=== PATIENT | male | born 1950 | race Caucasian/White ===

== ENCOUNTER 2020-03-21 10:04 | Inpatient (IN) | payer MEDICARE, MEDICAID ==
[2020-03-21] MEDS ORDERED: Cefepime 2 GM VIAL ONE (10:44)
[2020-03-21] MEDS ORDERED: Acetaminophen 500 MG TAB ONE (10:44)
[2020-03-21] MEDS ORDERED: Vancomycin 1 GM/200 ML BAG ONE (10:44)
[2020-03-21 10:57] LABS: Hemoglobin 9.3 g/dL (14.0-18.0); Mean Corpuscular Hemoglobin 29.6 pg (27.0-31.0); Mean Corpuscular Volume 89.8 fL (78.0-98.0); Platelet Count 459 thou/uL (130-400); RBC Distribution Width 14.8 % (11.5-14.5); Red Blood Cell (RBC) Count 3.14 mill/uL (4.70-6.10); White Blood Cell (WBC) Count 22.8 thou/uL (4.8-10.8)
--- NOTE | 2020-03-21 10:57 | RAD ---
Radiograph right leg tibia-fibula 2 views: 03/21/2020 HISTORY: 69-year-old male with leukocytosis and right lower extremity wound. "evaluate osteomyelitis" FINDINGS: No fracture, periostitis, fracture or permeative lesion is identified involving the tibia or fibula. Partial visualization of amputation with subcutaneous gas in the stump at mid foot. IMPRESSION: No destructive osseous lesion involving tibia or fibula.
[2020-03-21] MEDS ORDERED: diphenhydrAMINE 50 MG/ML VIAL ONE (11:00)
[2020-03-21] MEDS ORDERED: Ondansetron PF 4 MG/2 ML Vial ONE (11:00)
[2020-03-21] MEDS ORDERED: PROPOFOL 200 MG/20 ML VIAL ONE (11:00)
[2020-03-21] MEDS ORDERED: PHENYLEPHRINE-NS 100 MCG/ML 10 ML SYRINGE ONE (11:00)
[2020-03-21 11:04] LABS: INR-International Normal Ratio 2.1; PTT 58.3 sec (22.9-36.1); Prothrombin Time 23.9 sec (12.0-14.7)
--- NOTE | 2020-03-21 11:05 | RAD ---
Radiograph right foot 3 views: 03/21/2020 HISTORY: 63-year-old male with right foot pain and leukocytosis. COMPARISON: 11/10/2013 FINDINGS: Again noted is the amputation at the bases of all of the metatarsals. There is a new finding of a sig nificant amount of subcutaneous gas at the amputation stump. No definite periostitis is identified. It is difficult to evaluate for permeative lesion because of the overlapping soft tissue gas, but no definite bone destruction is identified. IMPRESSION: Subcutaneous emphysema at the right foot amputation stump: Evidence for bacterial infection with gas- forming organism: Gangrene
[2020-03-21] MEDS ORDERED: Clindamycin/D5W 900 mg/50 ml Premix Bag ONE (11:25)
[2020-03-21 11:36] LABS: ALT (SGPT) 26 U/L (8-55); AST (SGOT) 19 U/L (5-34); Alkaline Phosphatase 113 U/L (40-110); Anion Gap 19 mmol/L (10-20); BUN (Urea Nitrogen) 85 mg/dL (8.4-25.7); Bilirubin, Total 0.5 mg/dL (0.2-1.2); Calc. Creatinine Clearance 0 mL/min (70-130); Calcium 7.4 mg/dL (7.8-10.44); Carbon Dioxide 15 mmol/L (23-31); Chloride 97 mmol/L (98-107); Estimated GFR-MDRD 13; Globulin 4.1 g/dL (2.4-3.5); Glucose 265 mg/dL (80-115); Potassium 4.1 mmol/L (3.5-5.1); Protein, Total 7.1 g/dL (5.8-8.1); Sodium 127 mmol/L (136-145)
[2020-03-21 11:37] LABS: Band 7 % (5-11); Lymphocytes 3 % (21-51); Monocytes 6 % (0-10); Neutrophil 84 % (42-75); Platelet Morphology Comment Appears Increased; Polychromasia SLIGHT = 2-3 cells (100X) (0-2/hpf)
[2020-03-21 11:38] LABS: MDiff Complete? YES
[2020-03-21] MEDS ORDERED: metroNIDAZOLE 500 MG/100 ML BAG ONE (11:59)
[2020-03-21] MEDS ORDERED: Senokot S 8.6-50 MG TAB PO PRN (12:30)
[2020-03-21] MEDS ORDERED: Ondansetron PF 4 MG/2 ML Vial IVP PRN (12:30)
[2020-03-21] MEDS ORDERED: Dextrose 50% Abboject 50 ML SYRINGE SLOW IVP PRN (12:33)
[2020-03-21] MEDS ORDERED: Dextrose 5% in Water 1,000 ML IV PRN (12:33)
[2020-03-21] MEDS ORDERED: Piperacillin/Tazobactam 4.5 GM in Sodium Chloride 0.9% 100 ML IVPB SCH (14:00)
[2020-03-21] MEDS ORDERED: Vancomycin 1 GM in Premix Bag 1 BAG IVPB SCH (14:15)
[2020-03-21] MEDS ORDERED: Bacitracin Zinc Ointment 30 gm TUBE ONE (14:59)
[2020-03-21] MEDS ORDERED: Fentanyl 100 MCG/2 ML VIAL ONE (15:14)
[2020-03-21 15:28] LABS: SARS-CoV-2 NAA Rapid Test Not Detected (NotDetected)
--- NOTE | 2020-03-21 16:32 | CON ---
DATE OF CONSULTATION: 03/21/2020 REASON FOR CONSULTATION: Wet gangrene of the right foot. HISTORY OF PRESENT ILLNESS: Mr. Moore is a 69-year-old man with a history of diabetic neuropathy. He underwent a transmetatarsal amputation of the right foot many years ago and has seen a spinner fixer regularly for this. He last saw her about 3 weeks ago and was told that everything looked fine at that time. Two weeks ago, he started having pain in his right foot and he went to his local emergency room. He was diagnosed with a DVT and started on Eliquis. He states that Wound Care last came by last Wednesday and put a dressing on it. His daughter came by on Wednesday to see him and was concerned about his foot and made an appointment for him to see his primary care doctor, but the patient refused to take off his dressing at that time. He went to see his police shift commander today and again there was a foul odor and his police shift commander told him he needed to go to the emergency room, where he was found to have wet gangrene of the right foot with gas in the tissues on plain film of the foot and purulent drainage from boggy necrotic tissues over the plantar surface and distal portion of the TMA. His daughter states that it smelled bad on Wednesday when she took him to his primary care appointment, but that he would not let them look at the wound at that time. He has not had any fevers, but he has had chills and has been very cold. He states that the redness and swelling have only been present for a few days. PAST MEDICAL HISTORY: Diabetes with neuropathy and nephropathy. He is on insulin. He takes 14 units of the long-acting insulin daily and then sliding scale insulin, usually only a couple units at a time. He also has coronary artery disease with 3 stents, history of pancreatitis, benign prostatic hypertrophy, anemia, hyperparathyroidism secondary to chronic renal disease, and chronic kidney disease with recent worsening of renal function. His police shift commander has told him that he will probably need to go on dialysis in about 6 months. PAST SURGICAL HISTORY: Hernia repairs x2, tonsillectomy, a marcellus in his left leg and an ankle fusion of his left ankle, right transmetatarsal amputation, and 3 coronary artery stents. SOCIAL HISTORY: He smoked for about 30 years, but quit several years ago. He does not drink or use illicit drugs. He lives by himself and is still ambulatory. His daughter is with him and states that he is usually very private and does not involve his family in his medical care, but recently, he has been reaching out for more help and has started the process to make her his power of trademark attorney. ALLERGIES: HE HAS AN ALLERGY TO BACTRIM. MEDICATIONS: He does not know all of his medications. He takes; 1. Eliquis. 2. Long-acting insulin as well as sliding scale regular. 3. Several kidney medications. REVIEW OF SYSTEMS: Ten system review of systems is negative except per HPI. PHYSICAL EXAMINATION: VITAL SIGNS: The patient was afebrile in the emergency room. Heart rate of 84. Blood pressure initially 102/51, which came up to 122/57 with IV fluids. 99% saturated on room air. GENERAL: Reveals a thin elderly man, in no acute distress. He is not flushed or toxic in appearance. He is not diaphoretic. He is not jaundiced or icteric. HEENT: Unremarkable. Pupils are equal and extraocular movements are symmetric. Speech is clear. NECK: Supple without lymphadenopathy or thyroid nodules. HEART: Regular in its rate and rhythm without murmurs, rubs, or gallops. LUNGS: Clear to auscultation bilaterally, although breath sounds are distant. ABDOMEN: Soft and nondistended. He is tender to palpation in the suprapubic area, but states that it is because his bladder is full. No palpable masses or hernias. EXTREMITIES: Warm and well perfused. He has normal popliteal pulses bilaterally. No significant edema on either foot. His right transmetatarsal amputation site is frankly necrotic involving the entire flap back to the level of the proximal plantar foot. He has erythema up to the level of the ankle as well as some discoloration and blistering away from the necrotic portion of the flap. There is crepitance in the soft tissues as well as foul-smelling purulent drainage and full-thickness necrosis of most of the plantar surface of the foot. He does not have any pain to palpation beyond the erythematous area. NEUROLOGIC: No focal deficits. PSYCHIATRIC: Alert, oriented, and appropriate with linear thought processes. LABORATORY DATA: White count is elevated at 22,000 with 84% neutrophils, hematocrit is 28.2, platelets are 459. INR is elevated at 2.1 and PTT is elevated at 58.3. Sodium is low at 127, bicarb is low at 15, BUN and creatinine are elevated at 85 and 4.65. Lactate is normal at 1.4. C-reactive protein is elevated at 15.26. LFTs are normal except for an elevated alkaline phosphatase of 113. He is COVID negative. Images of the right foot and calf show gas in the soft tissues of the right foot, consistent with a gas-forming infection. No acute abnormalities of the calf. ASSESSMENT: Wet gangrene of the right foot. I explained to the patient that he needs to undergo urgent amputation of the right foot to control the infection. Given his active infection and irreversible anticoagulation, I recommend a guillotine amputation with a staged closure after his Eliquis has had time to reverse and after he has been on antibiotics for a few days; we can cover him with Lovenox in the meantime and hold his blood thinners for about 24 hours at the time of his amputation, resuming on the next day. The patient was initially quite reluctant to undergo amputation since he has gone through a lot to try to save this foot, but I explained to him that at this point, the foot cannot be salvaged and if we do not do an amputation in a timely manner, he risks having the infection spread further up the leg requiring amputation at a higher level. I do think he will heal a below-knee amputation. He has a good popliteal pulse and he is fairly functional at baseline, so he should be able to ambulate with a prosthesis. After speaking with his spinner fixer in [place], he has decided to proceed with surgery, ands is being taken to the operating room to undergo a guillotine amputation. We will plan on a formal closed below-knee amputation on Wednesday. Job ID: [id number] MTDD
[2020-03-21] MEDS ORDERED: Ondansetron HCl/PF 4 MG/2 ML Vial IVP PRN (16:38)
--- NOTE | 2020-03-21 17:13 | PDOC.OP ---
Operative Note - Operative Note Operative Note: PROCEDURE: Guillotine amputation of right foot SURGEON: Sveta Beltre M.D. DATE: 03/21/2020 PREOPERATIVE DIAGNOSIS: Wet gangrene of the right foot POSTOPERATIVE DIAGNOSIS: Wet gangrene of the right foot HISTORY: Patient with right transmetatarsal amputation many years ago who developed redness swelling discoloration of the right foot sometime over the past week or 2. He is fully anticoagulated on Eliquis for a DVT. He is septic with marginal blood pressure and a white count of 22,000. Recommendation was made to proceed with guillotine amputation for control of infection today, with plans to return to the OR on Wednesday for formal closed BKA after few days of antibiotics and allowing his Eliquis to wear off. He will need to be covered with Lovenox perioperatively for his DVT. FINDINGS: No evidence of infection at the level of the ankle. Good blood flow. PROCEDURE IN DETAIL: After informed consent was obtained and appropriate preoperative antibiotics administered the patient was taken to the operating room he was placed in supine position and general anesthesia was administered. He was prepped and draped in standard sterile fashion and the right foot amputated at the level of the ankle transversely using a Gigli saw. 2 pulsatile vessels were secured and suture ligated and several small muscular and skin vessels were controlled with electrocautery. There is no evidence of necrosis or purulence at the level of the ankle. Wet-to-dry dressings were placed and secured with Kerlix and Donovan wraps. The necrotic portion of the foot was opened on the back table and deep tissue cultures were sent. Patient was extubated and taken to recovery in good condition. Estimated blood loss was minimal. There were no complications. Specimen is right foot, and swabs for Gram stain and culture..
[2020-03-21] MEDS: Heparin 5,000 UNITS/ML VIAL SC SCH ×2 (18:57→21:57)
[2020-03-21] MEDS: Acetaminophen 325 MG TAB PO PRN (19:00)
[2020-03-21] MEDS: HumaLOG 300 UNITS/3 ML VIAL SC PRN ×2 (19:01→21:57)
[2020-03-21] MEDS: Sodium Chloride 0.9% 1,000 ML IV SCH (19:01)
[2020-03-21] MEDS ORDERED: Vancomycin HCl 1.75 GM in Sodium Chloride 0.9% 500 ML IVPB SCH (21:00)
[2020-03-21] MEDS: Piperacillin/Tazobactam 2.25 GM in Sodium Chloride 0.9% 100 ML IVPB SCH (21:57)
--- NOTE | 2020-03-21 23:00 | PDOC.HHP ---
Hospitalist HPI - History of Present Illness Right foot pain History of Present Illness: Mr. Moore is a 69-year-old male with a past medical history of CKD, type 2 diabetes on insulin, diabetic nephropathy, coronary artery disease x3 stents, BPH, anemia, hyperparathyroidism who was sent in from dialysis center for concerns of a right foot infection. Patient had a transmetatarsal amputation of his right foot a few months ago. Patient reports that about 2 weeks ago he started to develop worsening pain in his right foot and went to the emergency room where he was diagnosed with a DVT and started on Eliquis. He has been having wound care nurse come by weekly for dressing changes. Patient's daughter was concerned about infection and brought him to primary care appointment, but reports that patient would not let them undress the wound. Patient was at electric utility lineworker appointment today who sent him in for concerns of wet gangrene. Patient has no other complaints at this time and denies chest pain, shortness of breath, fever night sweats chills. He denies any new numbness or paresthesias. In the emergency room initial vital signs 123/52, 92, 20, 97% on room air. EKG showed normal sinus rhythm with PAC, but no ischemic ST changes. WBC 22.8. H/H 9.3/28.2. Sodium 127, BUN/CR 85/4.65. Glucose 265. SARS-CoV-2 negative. X- ray of the foot showed subcutaneous emphysema and evidence for bacterial infection with gas-forming organisms and gangrene. ER staff contacted general surgeon Dr. Beltre who evaluated patient and took patient to the OR for urgent guillotine amputation. Hospitalist ROS - Review of Systems Constitutional: denies: fever, chills, sweats, weakness, malaise, other Eyes: denies: pain, vision change, conjunctivae inflammation, eyelid inflammation, redness, other ENT: denies: ear pain, ear discharge, nose pain, nose discharge, nose congestion, mouth pain, mouth swelling, throat pain, throat swelling, other Respiratory: denies: cough, dry, shortness of breath, hemoptysis, SOB with excertion, pleuritic pain, sputum, wheezing, other Cardiovascular: denies: chest pain, palpitations, orthopnea, paroxysmal noc. dyspnea, edema, light headedness, other Genitourinary: denies: dysuria, frequency, incontinence, hematuria, retention, other Musculoskeletal: denies: neck pain, shoulder pain, arm pain, back pain, hand pain, leg pain, foot pain, other Skin: reports: lesions (Wound to right foot) Neurological: reports: numbness (Diabetic nephropathy stable). denies: weakness, incoordination, change in speech, confusion, seizures, other - Medication Medications: Home medications include Eliquis Baclofen Tamsulosin Rifaximin Insulin Aspirin Patient unable to confirm medications, taken from medical record. Will confirm home meds and dosages. Patient reports allergy to Bactrim Hospitalist History - Past Medical History Other Medical History: Past medical history of Type 2 diabetes Coronary artery disease status post 3 stents Pancreatitis BPH Anemia CKD with plans to start dialysis in 6 months Hyperparathyroidism Anemia of chronic disease - Past Surgical History Other Surgical History: Past surgical history includes Cardiac stents x3 Hernia repair x2 Tonsillectomy Transmetatarsal amputation of the right foot - Exam General Appearance: NAD, awake alert Eye: PERRL, anicteric sclera ENT: normocephalic atraumatic, no oropharyngeal lesions, moist mucosa Neck: supple, symmetric, no JVD, no thyromegaly, no lymphadenopathy, no carotid bruit Heart: RRR, no murmur, no gallops, no rubs, normal peripheral pulses Respiratory: CTAB, no wheezes, no rales, no ronchi, normal chest expansion, no tachypnea, normal percussion Gastrointestinal: soft, non-tender, non-distended, normal bowel sounds, no palpable masses, no hepatomegaly, no splenomegaly, no bruit Extremities - other findings: R leg with dressing C/D/I Skin: normal turgor, no lesions, no rashes Neurological: cranial nerve grossly intact, normal sensation to touch, no weakness, no focal deficits, no new deficit Musculoskeletal: normal tone, normal strength, no muscle wasting Psychiatric: normal affect, normal behavior, A&O x 3 Hospitalist Results - Labs Result Diagrams: 03/21/20 10:38 03/21/20 10:38 Lab results: WBC 22.8 thou/uL (4.8-10.8) H 03/21/20 10:38 Hgb 9.3 g/dL (14.0-18.0) L 03/21/20 10:38 Hct 28.2 % (42.0-52.0) L 03/21/20 10:38 MCV 89.8 fL (78.0-98.0) 03/21/20 10:38 Plt Count 459 thou/uL (130-400) H 03/21/20 10:38 Band Neuts % (Manual) 7 % (5-11) 03/21/20 10:38 ESR Westergren 102 mm/hr (Less than 20) H 03/21/20 10:00 Sodium 127 mmol/L (136-145) L 03/21/20 10:38 Potassium 4.1 mmol/L (3.5-5.1) 03/21/20 10:38 Chloride 97 mmol/L (98-107) L 03/21/20 10:38 Carbon Dioxide 15 mmol/L (23-31) L 03/21/20 10:38 BUN 85 mg/dL (8.4-25.7) H 03/21/20 10:38 Creatinine 4.65 mg/dL (0.7-1.3) H 03/21/20 10:38 Glucose 265 mg/dL (80-115) H 03/21/20 10:38 Lactic Acid 1.4 mmol/L (0.5-2.2) 03/21/20 10:38 Calcium 7.4 mg/dL (7.8-10.44) L 03/21/20 10:38 Total Bilirubin 0.5 mg/dL (0.2-1.2) 03/21/20 10:38 AST 19 U/L (5-34) 03/21/20 10:38 ALT 26 U/L (8-55) 03/21/20 10:38 Alkaline Phosphatase 113 U/L (40-110) H 03/21/20 10:38 C-Reactive Protein 15.26 mg/dL (= or < 0.5) H 03/21/20 10:38 Serum Total Protein 7.1 g/dL (5.8-8.1) 03/21/20 10:38 Albumin 3.0 g/dL (3.4-4.8) L 03/21/20 10:38 Hospitalist H&P A/P - Plan Plan: Wet gangrene 69M with hx of T2DM, s/p R foot transmetatarsal amp, CKD stage V, who presents for R foot gangrene. Plain film showed subcutaneous emphysema with gas. Patient taken urgently to surgery with Dr. Beltre for a guillotine amputation of the R foot. Patient WBC elevated to 22.8. Afebrile with stable VS. Will continue on IV abx, zosyn and vancomycin. Plans for a closed R BKA on Wednesday. Plan -s/p urgent R guillotine amputation -IV zosyn, vancomycin -Blood cultures -Trend fever curve, WBCs -Surgery following DVT Patient with recent R DVT on Eliquis. Will hold eliquis and bridge with heparin due to CKD for closed R BKA on Wednesday. Plan -Hold Eliquis -Heparin bridge CKD Stage V Patient with severe CKD BUN/Cr 85/4.65. Plans to start dialysis in approximately 6 months. Will consult nephrology for further management. Plan -Nephrology consult -Trend kidney function -Renal dosing as appropriate Type 2 Diabetes Mellitus Patient insulin dependent. Given severety of diabetic ulcer and infection will closely control blood sugars. Plan -ISS, ACHS glucose checks -Hg A1c -CC diet BPH Continue Tamsuosin CAD S/p 3 stents. Will continue ASA. DVT prophylaxis: Heparin FULL CODE Case discussed with attending physician, Dr. Mendieta who is in agreement with assessment and plan.
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
[2020-03-22] MEDS: Piperacillin/Tazobactam 2.25 GM in Sodium Chloride 0.9% 100 ML IVPB SCH ×4 (01:56→20:47)
[2020-03-22 02:43] VITALS: BMI 19.1
[2020-03-22] MEDS: Sodium Chloride 0.9% 1,000 ML IV SCH ×2 (05:18→05:52)
[2020-03-22 05:58] LABS: #Eosinphils 0.2 thou/uL (0.0-0.7); #Lymphocytes 1.5 thou/uL (1.20-3.40); #Monocytes 0.9 thou/uL (0.11-0.59); #Neutrophils 10.6 thou/uL (1.40-6.50); %Eosinophils 1.2 % (0.0-10.0); %Lymphocytes 11.1 % (21.0-51.0); %Monocytes 6.9 % (0.0-10.0); %Neutrophils 80.8 % (42.0-75.0); Hemoglobin 8.4 g/dL (14.0-18.0); Mean Corpuscular HGB CONC 32.3 g/dL (32.0-36.0); Mean Corpuscular Hemoglobin 29.5 pg (27.0-31.0); Mean Corpuscular Volume 91.5 fL (78.0-98.0); Mean Platelet Volume 8.2 fL (7.4-10.4); Platelet Count 442 thou/uL (130-400); RBC Distribution Width 14.8 % (11.5-14.5); Red Blood Cell (RBC) Count 2.86 mill/uL (4.70-6.10); White Blood Cell (WBC) Count 13.2 thou/uL (4.8-10.8)
[2020-03-22] MEDS: Heparin 25,000 units/D5W 500 ML IVPB SCH (05:58)
[2020-03-22 06:18] LABS: Anion Gap 17 mmol/L (10-20); BUN (Urea Nitrogen) 79 mg/dL (8.4-25.7); Calc. Creatinine Clearance 14 mL/min (70-130); Calcium 6.7 mg/dL (7.8-10.44); Carbon Dioxide 16 mmol/L (23-31); Chloride 103 mmol/L (98-107); Estimated GFR-MDRD 14; Glucose 322 mg/dL (80-115); Potassium 3.5 mmol/L (3.5-5.1); Sodium 132 mmol/L (136-145)
[2020-03-22] MEDS: HumaLOG 300 UNITS/3 ML VIAL SC PRN ×3 (06:23→20:47)
[2020-03-22] MEDS: Calcitriol 0.25 MCG CAP PO SCH (08:33)
[2020-03-22] MEDS: Calcium Acetate 667 MG CAP PO SCH ×3 (08:33→17:35)
[2020-03-22] MEDS: Saccharomyces boulardii 250 MG CAP PO SCH (08:34)
[2020-03-22] MEDS ORDERED: EPOETIN ALFA-EPBX (ESRD) 4,000 UNIT/ML VIAL SC SCH (09:00)
--- NOTE | 2020-03-22 09:11 | PDOC.HOSPP ---
- Subjective Encounter Date: 03/22/20 Encounter Time: 09:10 Subjective: Patient denies any complaints. Currently eating breakfast and tolerating it well. No n/v. Denies any chest pain/sob. No abdominal pain. Pain associated with foot amputation is well controlled. Remained afebrile overnight and denies any chills or sweats. - Objective Vital Signs & Weight: Vital Signs (12 hours) Temp Pulse Resp BP Pulse Ox 03/22/20 07:34 97.3 F L 85 18 125/75 20 L 03/22/20 01:58 97.2 F L 76 16 109/59 L 98 03/21/20 23:54 97.4 F L 79 18 138/68 100 Weight Weight 133 lb I&O: 03/21/20 03/22/20 03/23/20 06:59 06:59 06:59 Intake Total 2400 Balance 2400 Result Diagrams: 03/22/20 05:33 03/22/20 05:33 Additional Labs: Accuchecks 03/22/20 03/21/20 03/21/20 05:19 20:42 17:56 POC Glucose 333 H 212 H 188 H Hospitalist ROS - Review of Systems Constitutional: denies: fever, chills, sweats, weakness, malaise, other Respiratory: denies: cough, dry, shortness of breath, hemoptysis, SOB with excertion, pleuritic pain, sputum, wheezing, other Cardiovascular: denies: chest pain, palpitations, orthopnea, paroxysmal noc. dyspnea, edema, light headedness, other Gastrointestinal: denies: nausea, vomiting, abdominal pain, diarrhea, constipation, melena, hematochezia, other Genitourinary: denies: dysuria, frequency, incontinence, hematuria, retention, other Musculoskeletal: denies: neck pain, shoulder pain, arm pain, back pain, hand pain, leg pain, foot pain, other - Medication Medications: Active Medications Generic Name Dose Route Start Last Admin Trade Name Freq PRN Reason Stop Dose Admin Acetaminophen 650 mg 03/21/20 12:30 03/21/20 19:00 Acetaminophen 325 Mg Tab PO 650 mg Q8H PRN Administration Headache/Fever/Mild Pain (1-3) Calcitriol 0.25 mcg 03/22/20 09:00 03/22/20 08:33 Calcitriol 0.25 Mcg Cap PO 0.25 mcg DAILY GADIEL Administration Calcium Acetate 1,334 mg 03/22/20 08:00 03/22/20 08:33 Calcium Acetate 667 Mg Cap PO 1,334 mg TID-WM GADIEL Administration Piperacillin Sod/Tazobactam 100 mls @ 200 mls/hr 03/21/20 20:00 03/22/20 08:34 Sod 2.25 gm/ Sodium Chloride IVPB 100 mls 0200,0800,1400,2000 GADIEL Administration Sodium Chloride 1,000 mls @ 100 mls/hr 03/21/20 18:45 03/22/20 05:52 Normal Saline 0.9% IV 1,000 mls .Q10H GADIEL Administration Heparin Sodium/Dextrose 500 mls @ 0 mls/hr 03/21/20 23:45 03/22/20 05:58 Heparin 25,000 Units/D5w IVPB 500 mls INF GADIEL Administration Protocol Per Protocol Insulin Human Lispro 0 units 03/21/20 12:33 03/22/20 06:23 Humalog 300 Units/3 Ml Vial SC 5 unit .MILD SLIDING SCALE PRN Administration Mild Correctional Scale Saccharomyces Boulardii 250 mg 03/22/20 09:00 03/22/20 08:34 Saccharomyces Boulardii 250 Mg Cap PO 250 mg DAILY GADIEL Administration - Exam General Appearance: NAD, awake alert Eye: PERRL, anicteric sclera ENT: normocephalic atraumatic Neck: supple, no lymphadenopathy Heart: RRR, no murmur, no gallops, normal peripheral pulses Respiratory: CTAB, no wheezes, no rales, no ronchi, normal chest expansion Gastrointestinal: soft, non-tender, non-distended, normal bowel sounds Extremities: no edema Skin: no lesions, no rashes Neurological: cranial nerve grossly intact Musculoskeletal: normal tone, no muscle wasting Musculoskeletal - other findings: s/p right foot amputation, dressing in pace. Psychiatric: normal affect, normal behavior, A&O x 3 Hosp A/P (1) Diabetic wet gangrene of the foot Code(s): E11.52 - TYPE 2 DIABETES W DIABETIC PERIPHERAL ANGIOPATHY W GANGRENE Status: Acute Plan: S/p urgent R guillotine amputation by Dr. Beltre. Currently on IV zosyn, vancomycin Blood cultures pending. Remained afebrile overnight. Plan for R BKA on Wednesday. (2) Chronic renal failure Status: Acute Plan: Seen by Dr. Rodrigues and started IV fluids due to concern for possible LEANDRO. Possibility he may be heading towards dialysis. Continue to monitor renal function and BMP. Further management as per nephrology team. (3) Electrolyte abnormality Code(s): E87.8 - OTH DISORDERS OF ELECTROLYTE AND FLUID BALANCE, NEC Status: Acute Plan: Elevated phosphorus and low calcium. Started on PhosLo by Dr. Rodrigues. Continue to monitor electrolytes. (4) Secondary hyperparathyroidism Code(s): N25.81 - SECONDARY HYPERPARATHYROIDISM OF RENAL ORIGIN Status: Acute Plan: Started on Calcitriol 0.[address] Rodrigues. 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 (6) BPH (benign prostatic hyperplasia) Code(s): N40.0 - BENIGN PROSTATIC HYPERPLASIA WITHOUT LOWER URINRY TRACT SYMP Status: Chronic Plan: Continue tamsulosin. (7) History of DVT (deep vein thrombosis) Code(s): Z86.718 - PERSONAL HISTORY OF OTHER VENOUS THROMBOSIS AND EMBOLISM Status: Acute Plan: Chronic anticoagulation with Eliquis. Currently on hold. Patient has been started on heparin. (8) CAD (coronary artery disease) Code(s): I25.10 - ATHSCL HEART DISEASE OF [place] CORONARY ARTERY W/O ANG PCTRS Status: Acute Plan: Continue Aspirin. (9) Anemia Code(s): D64.9 - ANEMIA, UNSPECIFIED Status: Chronic Plan: Likely associated with underlying CKD. Will check iron studies. Monitor H/H. - Plan DVT proph w/heparin FULL CODE STATUS Discussed with attending who agrees with plan as above.
--- NOTE | 2020-03-22 09:59 | PRG ---
DATE OF SERVICE: 03/22/2020 SUBJECTIVE: Mr. Moore is a 69-year-old white male with chronic renal failure from diabetic nephropathy, type 2 diabetes mellitus, and admitted for right foot infection. He underwent right foot amputation. This morning, he is feeling better. We are following up this patient for his chronic renal failure. There is some stabilization of the renal dysfunction. No other complaints today. No chest pain or shortness of breath. OBJECTIVE: VITAL SIGNS: Blood pressure 125/75, heart rate 85, respiratory rate 18, temperature 97.3, O2 saturation is 98%. GENERAL: The patient is awake, alert, comfortable, not in distress. SKIN: Adequate turgor. HEENT: Slightly pale conjunctivae. Anicteric sclerae. NECK: No neck mass. No carotid bruits. No JVD. CHEST: No deformities. LUNGS: Clear breath sounds. HEART: Normal sinus rhythm. No murmur. No gallops. No rubs. ABDOMEN: Globular, soft, nontender. No masses. EXTREMITIES: No edema. Right foot dressing noted. MEDICATIONS: Of March 22, 2020, were reviewed. LABORATORY DATA: Laboratories of March 22, 2020: White count 13.2, hemoglobin 8.4. Sodium 132, potassium 3.5, chloride 103, carbon dioxide 16, BUN 79, creatinine 4.32, glucose 322, calcium is 6.7. ASSESSMENT AND PLAN: 1. Chronic renal failure from diabetic nephropathy. Stabilizing renal function. Continue current management. Continue normal saline. No indication for any dialytic intervention. 2. Anemia - the patient to be started on Epogen at 7500 units subcu every week. 3. Metabolic acidosis. Consider starting on sodium bicarbonate 650 mg p.o. t.i.d. 4. Hyperphosphatemia/hypocalcemia. On PhosLo 667 mg two tablets t.i.d. with meals. 5. Right foot wet gangrene - status post right foot amputation, stable. On empiric IV antibiotics. Recheck CBC and basic metabolics in a.m. Job ID: [id number]
[2020-03-22] MEDS: Sodium Bicarbonate Tab 325 MG TAB PO SCH ×3 (13:31→20:47)
[2020-03-22 16:31] LABS: Vancomycin, Random 9.9 ug/mL (See Comment)
[2020-03-22] MEDS ORDERED: Vancomycin 1 GM in Premix Bag 1 BAG IVPB SCH (17:00)
--- NOTE | 2020-03-22 17:07 | PDOC.GSPN ---
Surgery Progress Note: Subj - Subjective Narrative: Patient seen with wound care team this afternoon. There was some s erosanguineous drainage on his dressing and some old marrow oozing but no active bleeding from the soft tissues. Wound was redressed. White count has come down almost to normal and hematocrit is about the same. Creatinine is slightly improved. He is on a heparin drip and last PTT was 81. Assessment/plan: Wet gangrene of the right foot status post guillotine amputation. Sepsis is improved on IV antibiotics status post amputation. Continue IV antibiotics. He has a DVT and is on a heparin drip for bridging. Eliquis is being held. He is scheduled for a formal right below-knee amputation with closure of the stump on Wednesday at 8 AM and his heparin will need to be held perioperatively. He will be able to resume this postoperatively. His renal function is stable and Dr. Rodrigues does not feel that he will require hemodialysis in the near future. He will be seen by the wound care team tomorrow. If there are any concerns they are going to contact Dr. Taylor. Otherwise I will see him on Wednesday at the time of his operation. Postoperatively he will need to go to inpatient rehab. He is motivated patient and was previously self-sufficient so I suspect that he will do well with therapy and be able to ambulate with a prosthesis. Surgery Progress Note: Obj - Vital signs Vital signs: Vital Signs - Most Recent Temp Pulse Resp BP Pulse Ox 97.3 F L 85 18 125/75 99 03/22/20 07:34 03/22/20 07:34 03/22/20 07:34 03/22/20 07:34 03/22/20 08:00 Surgery Progress Note: Results - Labs Result Diagrams: 03/26/20 05:19 03/26/20 05:19 Lab results: Laboratory Results - last 12 hr 03/22/20 03/22/20 03/22/20 05:19 05:33 05:33 WBC 13.2 H RBC 2.86 L Hgb 8.4 L Hct 26.2 L MCV 91.5 MCH 29.5 MCHC 32.3 RDW 14.8 H Plt Count 442 H MPV 8.2 Neutrophils % 80.8 H Lymphocytes % 11.1 L Monocytes % 6.9 Eosinophils % 1.2 Basophils % 0.0 Neutrophils # 10.6 H Lymphocytes # 1.5 Monocytes # 0.9 H Eosinophils # 0.2 Basophils # 0.0 APTT Sodium 132 L Potassium 3.5 Chloride 103 Carbon Dioxide 16 L Anion Gap 17 BUN 79 H Creatinine 4.32 H Estimated GFR (MDRD) 14 Glucose 322 H POC Glucose 333 H Calcium 6.7 L Random Vancomycin 03/22/20 03/22/20 03/22/20 10:51 15:40 15:53 WBC RBC Hgb Hct MCV MCH MCHC RDW Plt Count MPV Neutrophils % Lymphocytes % Monocytes % Eosinophils % Basophils % Neutrophils # Lymphocytes # Monocytes # Eosinophils # Basophils # APTT Sodium Potassium Chloride Carbon Dioxide Anion Gap BUN Creatinine Estimated GFR (MDRD) Glucose POC Glucose 261 H 377 H Calcium Random Vancomycin 9.9 03/22/20 15:53 WBC RBC Hgb Hct MCV MCH MCHC RDW Plt Count MPV Neutrophils % Lymphocytes % Monocytes % Eosinophils % Basophils % Neutrophils # Lymphocytes # Monocytes # Eosinophils # Basophils # APTT 81.4 H Sodium Potassium Chloride Carbon Dioxide Anion Gap BUN Creatinine Estimated GFR (MDRD) Glucose POC Glucose Calcium Random Vancomycin
[2020-03-23] MEDS: Acetaminophen 325 MG TAB PO PRN (00:35)
[2020-03-23] MEDS ORDERED: HYDROcodone/Acetaminophen 5/325 mg Tablet PO PRN (01:19)
[2020-03-23] MEDS: Piperacillin/Tazobactam 2.25 GM in Sodium Chloride 0.9% 100 ML IVPB SCH ×4 (01:34→21:34)
[2020-03-23] MEDS: HYDROcodone/Acetaminophen 5/325 mg Tablet PO PRN ×2 (01:35→10:34)
[2020-03-23] MEDS: Sodium Chloride 0.9% 1,000 ML IV SCH ×3 (02:10→21:57)
[2020-03-23 05:16] LABS: #Eosinphils 0.3 thou/uL (0.0-0.7); #Monocytes 0.9 thou/uL (0.11-0.59); #Neutrophils 9.9 thou/uL (1.40-6.50); %Basophils 0.4 % (0.0-1.0); %Eosinophils 2.1 % (0.0-10.0); %Lymphocytes 15.6 % (21.0-51.0); %Monocytes 6.6 % (0.0-10.0); %Neutrophils 75.4 % (42.0-75.0); Hemoglobin 8.6 g/dL (14.0-18.0); Mean Corpuscular HGB CONC 32.2 g/dL (32.0-36.0); Mean Corpuscular Hemoglobin 29.8 pg (27.0-31.0); Mean Corpuscular Volume 92.4 fL (78.0-98.0); Platelet Count 507 thou/uL (130-400); RBC Distribution Width 15.2 % (11.5-14.5); Red Blood Cell (RBC) Count 2.89 mill/uL (4.70-6.10); White Blood Cell (WBC) Count 13.1 thou/uL (4.8-10.8)
[2020-03-23] MEDS: HumaLOG 300 UNITS/3 ML VIAL SC PRN ×4 (05:24→21:42)
[2020-03-23] MEDS: Heparin 25,000 units/D5W 500 ML IVPB SCH (05:24)
[2020-03-23 05:33] LABS: Anion Gap 16 mmol/L (10-20); BUN (Urea Nitrogen) 68 mg/dL (8.4-25.7); Calc. Creatinine Clearance 14 mL/min (70-130); Calcium 6.7 mg/dL (7.8-10.44); Carbon Dioxide 15 mmol/L (23-31); Chloride 108 mmol/L (98-107); Estimated GFR-MDRD 13; Glucose 180 mg/dL (80-115); Iron 27 ug/dL (65-175); Iron 32 ug/dL (65-175); Iron Binding Capacity, Total 110 mcg/dL (261-462); Iron Binding Capacity, Total 111 mcg/dL (261-462); Potassium 4.2 mmol/L (3.5-5.1); Sodium 135 mmol/L (136-145)
[2020-03-23 06:23] LABS: Ferritin 199.41 ng/mL (22-322)
[2020-03-23] MEDS ORDERED: Heparin 10,000 UNITS/ 10 ML VIAL SLOW IVP SCH (06:45)
[2020-03-23] MEDS: Calcium Acetate 667 MG CAP PO SCH ×3 (08:38→17:30)
[2020-03-23] MEDS: Calcitriol 0.25 MCG CAP PO SCH (08:38)
[2020-03-23] MEDS: Sodium Bicarbonate Tab 325 MG TAB PO SCH ×3 (08:38→21:48)
[2020-03-23] MEDS: Saccharomyces boulardii 250 MG CAP PO SCH (08:38)
--- NOTE | 2020-03-23 10:27 | PRG ---
DATE OF SERVICE: 03/23/2020 SUBJECTIVE: Mr. Moore is a 69-year-old white male with chronic renal failure from diabetic nephropathy admitted for right foot gangrene. He underwent a right foot amputation. No new complaints today. No chest pain or shortness of breath. He does feel weak and tired. No complaints of chest pain or shortness of breath. OBJECTIVE: VITAL SIGNS: Blood pressure 122/63, heart rate 79, respiratory rate 16, temperature 97.2, and O2 saturation 99%. GENERAL: The patient is awake, alert, supine, comfortable, lethargic, not in overt distress. SKIN: Adequate turgor. HEENT: He has a slightly pale conjunctivae. Anicteric sclerae. NECK: No neck mass. No carotid bruits. No JVD. CHEST: No deformities. LUNGS: Clear breath sounds. HEART: Normal sinus rhythm. No murmur. No gallops. No rubs. ABDOMEN: Globular, soft, and nontender. No masses. EXTREMITIES: No edema. Positive for right foot amputation. NEUROLOGIC: Awake and oriented to 3 spheres. Moving all extremities. No tremors. No asterixis. No ataxia. MEDICATIONS: Medications of March 23, 2020, was reviewed. LABORATORY DATA: Laboratories of March 23, 2020, white count 13.1 and hemoglobin 8.6. Sodium 135, potassium 4.2, chloride 108, carbon dioxide 15, BUN 68, creatinine 4.46, GFR 13 mL/minute, and glucose is 180. Iron 32. Ferritin 199. Vitamin B12 of 841. ASSESSMENT AND PLAN: 1. Chronic renal failure from diabetic nephropathy - creatinine has worsen from 4.32 to 4.46. GFR has dropped down from 14 to 13 mL/minute. Continue IV hydration. If no significant improvement with his renal function, my bias is to consider initiating hemodialysis with this patient. 2. Anemia. Hemoglobin noted at 8.6 - currently, the patient is started on Epogen. I did note that the patient's iron levels are on the low side. My plan is to initiate iron infusion with this patient. Venofer at 50 mg IV now. 3. Metabolic acidosis - continuing sodium bicarbonate. 4. Right foot wet gangrene - status post right foot amputation. Continue supportive care. Job ID: [id number]
[2020-03-23 12:48] LABS: PTT 162.3 sec (22.9-36.1)
[2020-03-23 16:24] LABS: Vancomycin, Random 16.1 ug/mL (See Comment)
--- NOTE | 2020-03-23 17:45 | PDOC.HOSPP ---
- Subjective Encounter Date: 03/23/20 Encounter Time: 09:30 Subjective: Patient seen and examined for diabetic foot infection requiring amputation. Denies any fever or chills. Pain around 7/10 over the surgical site. Denies any constipation, nausea or vomiting. - Objective Vital Signs & Weight: Vital Signs (12 hours) Temp Pulse Resp BP Pulse Ox 03/23/20 16:04 97.5 F L 76 16 125/66 98 03/23/20 12:34 97.4 F L 71 16 127/74 98 03/23/20 07:11 97.2 F L 79 16 122/63 99 Weight Weight 133 lb I&O: 03/22/20 03/23/20 03/24/20 06:59 06:59 06:59 Intake Total 2400 1760.4 Balance 2400 1760.4 Result Diagrams: 03/23/20 05:01 03/23/20 05:01 Additional Labs: Accuchecks 03/23/20 03/23/20 03/23/20 16:09 12:35 04:58 POC Glucose 201 H 234 H 166 H 03/22/20 20:33 POC Glucose 248 H Abnormal Lab Results - Last 48 hrs 03/22/20 05:33: Sodium 132 L, Carbon Dioxide 16 L, BUN 79 H, Creatinine 4.32 H, Calcium 6.7 L 03/22/20 05:33: WBC 13.2 H, RBC 2.86 L, Hgb 8.4 L, Hct 26.2 L, RDW 14.8 H, Plt Count 442 H, Neutrophils % 80.8 H, Lymphocytes % 11.1 L, Neutrophils # 10.6 H, Monocytes # 0.9 H 03/22/20 15:53: APTT 81.4 H 03/23/20 01:24: APTT 92.7 H 03/23/20 05:01: Sodium 135 L, Chloride 108 H, Carbon Dioxide 15 L, BUN 68 H, Creatinine 4.46 H, Calcium 6.7 L, Iron 32 L, TIBC 111 L 03/23/20 05:01: WBC 13.1 H, RBC 2.89 L, Hgb 8.6 L, Hct 26.7 L, RDW 15.2 H, Plt Count 507 H, Neutrophils % 75.4 H, Lymphocytes % 15.6 L, Neutrophils # 9.9 H, Monocytes # 0.9 H 03/23/20 05:01: Hemoglobin A1c 7.0 H 03/23/20 05:01: Iron 27 L, TIBC 110 L 03/23/20 05:01: APTT 60.7 H 03/23/20 12:17: APTT 162.3 H* 03/23/20 14:46: APTT 49.1 H Microbiology - Entire Visit 03/21/20 10:34 Venous blood - Right Arm Blood Culture - Preliminary NO GROWTH AT 48 HOURS 03/21/20 10:38 Venous blood - Left Arm Blood Culture - Preliminary NO GROWTH AT 48 HOURS 03/21/20 10:21 Foot - Pending Bacterial Culture - Preliminary Morganella morganii ssp leoncio Presumptive Escherichia coli 03/21/20 16:24 Foot - Swab Bacterial Culture - Preliminary Gram Negative David Staphylococcus aureus 03/21/20 16:24 Foot - Swab Anaerobic Culture - Pending 03/22/20 00:00 Stool C. difficile GDH Antigen & Toxins - Final Hospitalist ROS - Review of Systems Cardiovascular: denies: chest pain, palpitations, orthopnea, paroxysmal noc. dyspnea, edema, light headedness, other Gastrointestinal: denies: nausea, vomiting, abdominal pain, diarrhea, constipation, melena, hematochezia, other - Medication Medications: Active Medications Generic Name Dose Route Start Last Admin Trade Name Dylonq PRN Reason Stop Dose Admin Acetaminophen 650 mg 03/21/20 12:30 03/23/20 00:35 Acetaminophen 325 Mg Tab PO 650 mg Q8H PRN Administration Headache/Fever/Mild Pain (1-3) Hydrocodone Bitart/Acetaminophen 2 tab 03/23/20 01:19 03/23/20 10:34 Hydrocodone/Acetaminophen 5/325 Mg Tablet PO 2 tab Q4H PRN Administration Moderate to Severe Pain (6-10) Calcitriol 0.25 mcg 03/22/20 09:00 03/23/20 08:38 Calcitriol 0.25 Mcg Cap PO 0.25 mcg DAILY GADIEL Administration Calcium Acetate 1,334 mg 03/22/20 08:00 03/23/20 17:30 Calcium Acetate 667 Mg Cap PO 1,334 mg TID-WM GADIEL Administration Epoetin Lars-epbx 7,500 unit 03/22/20 09:00 03/22/20 14:02 Epoetin Lars-Epbx (Esrd) 4,000 Unit/Ml Vial SC 7,500 unit Q7D GADIEL Administration Heparin Sodium (Porcine) 0 units 03/23/20 06:45 03/23/20 06:42 Heparin 10,000 Units/ 10 Ml Vial SLOW IVP 2,412 unit ASDIR GADIEL Administration Piperacillin Sod/Tazobactam 100 mls @ 200 mls/hr 03/21/20 20:00 03/23/20 13:18 Sod 2.25 gm/ Sodium Chloride IVPB 100 mls 0200,0800,1400,2000 GADIEL Administration Sodium Chloride 1,000 mls @ 100 mls/hr 03/21/20 18:45 03/23/20 08:40 Normal Saline 0.9% IV 1,000 mls .Q10H GADIEL Administration Heparin Sodium/Dextrose 500 mls @ 0 mls/hr 03/21/20 23:45 03/23/20 05:24 Heparin 25,000 Units/D5w IVPB 500 mls INF GADIEL Administration Protocol Per Protocol Insulin Human Lispro 0 units 03/21/20 12:33 03/23/20 17:30 Humalog 300 Units/3 Ml Vial SC 3 unit .MILD SLIDING SCALE PRN Administration Mild Correctional Scale Saccharomyces Boulardii 250 mg 03/22/20 09:00 03/23/20 08:38 Saccharomyces Boulardii 250 Mg Cap PO 250 mg DAILY GADIEL Administration Sodium Bicarbonate 650 mg 03/22/20 09:00 03/23/20 15:25 Sodium Bicarbonate Tab 325 Mg Tab PO 650 mg TID GADIEL Administration - Exam General - other findings: Mild distress due to pain Heart: RRR, no gallops Respiratory: no wheezes, no rales Gastrointestinal: non-tender, non-distended Extremities: no cyanosis, no clubbing Extremities - other findings: Dressing over the wound Neurological: no new deficit Hosp A/P - Plan DVT proph w/heparin Sepsis due to diabetic right foot infection with gangrene s/p amputationPOA Diabetes mellitus type 2 with diabetic nephropathy CKD stage V Chronic metabolic acidosis due to renal failure Anemia probably due to renal insufficiency History of DVT on heparin drip Hyponatremia with sodium of 127 on admission Benign prostatic hypertrophy Coronary artery disease status post stent Secondary hyperparathyroidism Other issues per previous notes Plan: Formal right below-knee amputation with closure of the stump tomorrow. Discontinue heparin drip prior to surgery. Continue IV fluids per Dr. Rodrigues. Continue IV vancomycin. Continue sodium bicarbonate. Continue Epogen for anemia. Continue PhosLo for secondary hyperparathyroidism
[2020-03-23] MEDS ORDERED: Vancomycin 1 GM in Premix Bag 1 BAG IVPB SCH (18:00)
[2020-03-24] MEDS: Piperacillin/Tazobactam 2.25 GM in Sodium Chloride 0.9% 100 ML IVPB SCH ×2 (01:40→11:46)
[2020-03-24] MEDS ORDERED: Vancomycin 1 GM in Premix Bag 1 BAG IVPB SCH (02:00)
[2020-03-24 04:02] LABS: #Basophils 0.1 thou/uL (0.0-0.2); #Eosinphils 0.3 thou/uL (0.0-0.7); #Monocytes 0.8 thou/uL (0.11-0.59); #Neutrophils 11.2 thou/uL (1.40-6.50); %Basophils 0.4 % (0.0-1.0); %Eosinophils 2.4 % (0.0-10.0); %Monocytes 5.6 % (0.0-10.0); %Neutrophils 77.6 % (42.0-75.0); Hemoglobin 9.2 g/dL (14.0-18.0); Mean Corpuscular HGB CONC 32.5 g/dL (32.0-36.0); Mean Corpuscular Hemoglobin 30.3 pg (27.0-31.0); Mean Platelet Volume 7.9 fL (7.4-10.4); Platelet Count 584 thou/uL (130-400); RBC Distribution Width 15.5 % (11.5-14.5); Red Blood Cell (RBC) Count 3.05 mill/uL (4.70-6.10); White Blood Cell (WBC) Count 14.5 thou/uL (4.8-10.8)
[2020-03-24 04:26] LABS: ALT (SGPT) 22 U/L (8-55); AST (SGOT) 30 U/L (5-34); Albumin 2.4 g/dL (3.4-4.8); Alkaline Phosphatase 97 U/L (40-110); Anion Gap 19 mmol/L (10-20); BUN (Urea Nitrogen) 53 mg/dL (8.4-25.7); Bilirubin, Total 0.2 mg/dL (0.2-1.2); Calc. Creatinine Clearance 15 mL/min (70-130); Carbon Dioxide 13 mmol/L (23-31); Chloride 108 mmol/L (98-107); Estimated GFR-MDRD 14; Globulin 4.4 g/dL (2.4-3.5); Glucose 162 mg/dL (80-115); Potassium 4.5 mmol/L (3.5-5.1); Protein, Total 6.8 g/dL (5.8-8.1); Sodium 135 mmol/L (136-145)
[2020-03-24] MEDS ORDERED: Phenylephrine 10 MG/ML VIAL ONE (07:52)
[2020-03-24] MEDS ORDERED: Fentanyl 100 MCG/2 ML VIAL ONE ×2 (07:52→10:40)
[2020-03-24] MEDS ORDERED: Ondansetron HCl/PF 4 MG/2 ML Vial IVP PRN ×2 (08:10→08:55)
[2020-03-24] MEDS ORDERED: Promethazine HCl 25 MG/ML VIAL IM PRN ×2 (08:10→08:55)
[2020-03-24] MEDS ORDERED: Promethazine HCl 25 MG/ML VIAL SLOW IVP PRN ×2 (08:10→08:55)
[2020-03-24] MEDS ORDERED: Meperidine HCl/PF 25 MG/ML VIAL SLOW IVP PRN (08:10)
[2020-03-24] MEDS ORDERED: Lidocaine 1% PF 5 ML VIAL ONE (09:17)
[2020-03-24] MEDS ORDERED: EPHEDRINE 25 MG/5 ML SYRINGE ONE (09:17)
[2020-03-24] MEDS ORDERED: PROPOFOL 200 MG/20 ML VIAL ONE (09:17)
[2020-03-24] MEDS ORDERED: PHENYLEPHRINE-NS 100 MCG/ML 10 ML SYRINGE ONE (09:17)
[2020-03-24] MEDS ORDERED: Ondansetron PF 4 MG/2 ML Vial ONE (09:17)
[2020-03-24 11:18] LABS: Hemoglobin 9.1 g/dL (14.0-18.0)
[2020-03-24] MEDS: Calcium Acetate 667 MG CAP PO SCH ×3 (11:36→17:26)
[2020-03-24] MEDS: Sodium Bicarbonate Tab 325 MG TAB PO SCH ×3 (11:36→20:39)
[2020-03-24] MEDS: Sodium Bicarbonate 100 MEQ in Sodium Chloride 0.45% 1,000 ML IV SCH (11:44)
[2020-03-24] MEDS: Calcitriol 0.25 MCG CAP PO SCH (11:45)
[2020-03-24] MEDS: Saccharomyces boulardii 250 MG CAP PO SCH (11:45)
[2020-03-24] MEDS: HYDROcodone/Acetaminophen 5/325 mg Tablet PO PRN ×2 (11:46→17:26)
[2020-03-24] MEDS: HumaLOG 300 UNITS/3 ML VIAL SC PRN ×3 (11:58→21:34)
[2020-03-24] MEDS ORDERED: Meropenem 0.5 GM in Sodium Chloride 0.9% 100 ML IVPB SCH (12:00)
[2020-03-24] MEDS: Meropenem 500 MG in Sodium Chloride 0.9% 100 ML IVPB SCH ×2 (12:29→20:39)
[2020-03-24] MEDS ORDERED: Iron, Sodium Ferric Gluconate 125 MG in Sodium Chloride 0.9% 100 ML IVPB SCH (13:00)
--- NOTE | 2020-03-24 18:07 | PDOC.HOSPP ---
- Subjective Encounter Date: 03/24/20 Encounter Time: 11:30 Subjective: Patient seen and examined for diabetic foot infection. Underwent formal amputation today. Pain controlled. No fever or chills. - Objective Vital Signs & Weight: Vital Signs (12 hours) Temp Pulse Resp BP Pulse Ox 03/24/20 12:33 98.2 F 104 H 16 147/74 H 98 03/24/20 11:20 98 Weight Weight 133 lb I&O: 03/23/20 03/24/20 03/25/20 06:59 06:59 06:59 Intake Total 1760.4 1600 Balance 1760.4 1600 Result Diagrams: 03/24/20 11:06 03/24/20 03:34 Additional Labs: Accuchecks 03/24/20 03/24/20 03/24/20 16:07 07:40 05:05 POC Glucose 221 H 140 H 161 H 03/23/20 21:38 POC Glucose 160 H Abnormal Lab Results - Last 48 hrs 03/23/20 01:24: APTT 92.7 H 03/23/20 05:01: Sodium 135 L, Chloride 108 H, Carbon Dioxide 15 L, BUN 68 H, C reatinine 4.46 H, Calcium 6.7 L, Iron 32 L, TIBC 111 L 03/23/20 05:01: WBC 13.1 H, RBC 2.89 L, Hgb 8.6 L, Hct 26.7 L, RDW 15.2 H, Plt Count 507 H, Neutrophils % 75.4 H, Lymphocytes % 15.6 L, Neutrophils # 9.9 H, Monocytes # 0.9 H 03/23/20 05:01: Hemoglobin A1c 7.0 H 03/23/20 05:01: Iron 27 L, TIBC 110 L 03/23/20 05:01: APTT 60.7 H 03/23/20 12:17: APTT 162.3 H* 03/23/20 14:46: APTT 49.1 H 03/23/20 21:31: APTT 76.0 H 03/24/20 03:34: Sodium 135 L, Chloride 108 H, Carbon Dioxide 13 L, BUN 53 H, Creatinine 4.17 H, Calcium 7.0 L, Albumin 2.4 L, Globulin 4.4 H, Albumin/Globulin Ratio 0.5 L 03/24/20 03:34: WBC 14.5 H, RBC 3.05 L, Hgb 9.2 L, Hct 28.4 L, RDW 15.5 H, Plt Count 584 H, Neutrophils % 77.6 H, Lymphocytes % 14.0 L, Neutrophils # 11.2 H, Monocytes # 0.8 H 03/24/20 03:34: APTT 46.9 H 03/24/20 11:06: Hgb 9.1 L, Hct 28.1 L Microbiology - Entire Visit 03/21/20 10:21 Foot - Pending Bacterial Culture - Preliminary Morganella morganii ssp leoncio Presumptive Escherichia coli 03/21/20 16:24 Foot - Swab Bacterial Culture - Preliminary Morganella morganii ssp leoncio Staphylococcus aureus Gram Negative David#2 03/21/20 16:24 Foot - Swab Anaerobic Culture - Preliminary 03/21/20 10:34 Venous blood - Right Arm Blood Culture - Preliminary NO GROWTH AT 48 HOURS 03/21/20 10:38 Venous blood - Left Arm Blood Culture - Preliminary NO GROWTH AT 48 HOURS 03/22/20 00:00 Stool C. difficile GDH Antigen & Toxins - Final Hospitalist ROS - Review of Systems Respiratory: denies: cough, dry, shortness of breath, hemoptysis, SOB with excertion, pleuritic pain, sputum, wheezing, other Cardiovascular: denies: chest pain, palpitations, orthopnea, paroxysmal noc. dyspnea, edema, light headedness, other - Medication Medications: Active Medications Generic Name Dose Route Start Last Admin Trade Name Freq PRN Reason Stop Dose Admin Acetaminophen 650 mg 03/21/20 12:30 03/23/20 00:35 Acetaminophen 325 Mg Tab PO 650 mg Q8H PRN Administration Headache/Fever/Mild Pain (1-3) Hydrocodone Bitart/Acetaminophen 2 tab 03/23/20 01:19 03/24/20 17:26 Hydrocodone/Acetaminophen 5/325 Mg Tablet PO 2 tab Q4H PRN Administration Moderate to Severe Pain (6-10) Calcitriol 0.25 mcg 03/22/20 09:00 03/24/20 11:45 Calcitriol 0.25 Mcg Cap PO 0.25 mcg DAILY GADIEL Administration Calcium Acetate 1,334 mg 03/22/20 08:00 03/24/20 17:26 Calcium Acetate 667 Mg Cap PO 1,334 mg TID-WM GADIEL Administration Epoetin Lars-epbx 7,500 unit 03/22/20 09:00 03/22/20 14:02 Epoetin Lars-Epbx (Esrd) 4,000 Unit/Ml Vial SC 7,500 unit Q7D GADIEL Administration Sodium Bicarbonate 100 meq/ 1,100 mls @ 100 mls/hr 03/24/20 06:15 03/24/20 11:44 Sodium Chloride IV 1,100 mls .Q11H GADIEL Administration Meropenem 500 mg/ Sodium 100 mls @ 200 mls/hr 03/24/20 12:00 03/24/20 12:29 Chloride IVPB 100 mls Q8H GADIEL Administration Insulin Human Lispro 0 units 03/21/20 12:33 03/24/20 17:26 Humalog 300 Units/3 Ml Vial SC 3 unit .MILD SLIDING SCALE PRN Administration Mild Correctional Scale Ondansetron HCl 4 mg 03/21/20 12:30 03/23/20 19:23 Ondansetron Pf 4 Mg/2 Ml Vial IVP 4 mg Q6H PRN Administration Nausea/Vomiting Saccharomyces Boulardii 250 mg 03/22/20 09:00 03/24/20 11:45 Saccharomyces Boulardii 250 Mg Cap PO 250 mg DAILY GADIEL Administration Sodium Bicarbonate 650 mg 03/22/20 09:00 03/24/20 15:36 Sodium Bicarbonate Tab 325 Mg Tab PO 650 mg TID GADIEL Administration - Exam General Appearance: ill appearing Neck: supple Heart: RRR, no gallops Respiratory: no wheezes, no ronchi Gastrointestinal: soft, non-tender, normal bowel sounds Extremities: no cyanosis, no clubbing Extremities - other findings: Dressing over the surgical site Hosp A/P - Plan DVT proph w/SCDs Sepsis due to diabetic right foot infection with gangrene s/p amputation Diabetes mellitus type 2 with diabetic nephropathy CKD stage V Chronic metabolic acidosis due to renal failure Anemia probably due to renal insufficiency History of DVT on heparin drip Hyponatremia with sodium of 127 on admission Benign prostatic hypertrophy Coronary artery disease status post stent Secondary hyperparathyroidism Other issues per previous notes Plan: Bacterial culture positive for Morganella and staph aureus. Will change antibiotics to Carbapenem. Will adjust dose for renal function. Will start anticoagulation 24 hours after surgery. IV fluid changed to bicarb drip due to significant metabolic acidosis this morning. Recheck labs in a.m. Pain control. Continue other medications as above.
[2020-03-25] MEDS: Sodium Bicarbonate 100 MEQ in Sodium Chloride 0.45% 1,000 ML IV SCH ×4 (00:26→22:11)
[2020-03-25] MEDS: HYDROcodone/Acetaminophen 5/325 mg Tablet PO PRN ×3 (00:27→16:39)
[2020-03-25] MEDS: Meropenem 500 MG in Sodium Chloride 0.9% 100 ML IVPB SCH ×3 (04:14→21:02)
[2020-03-25] MEDS: HumaLOG 300 UNITS/3 ML VIAL SC PRN ×4 (06:01→22:10)
[2020-03-25 06:02] LABS: #Eosinphils 0.3 thou/uL (0.0-0.7); #Lymphocytes 1.5 thou/uL (1.20-3.40); #Neutrophils 10.9 thou/uL (1.40-6.50); %Basophils 0.3 % (0.0-1.0); %Monocytes 7.5 % (0.0-10.0); %Neutrophils 79.2 % (42.0-75.0); Hemoglobin 7.9 g/dL (14.0-18.0); Mean Corpuscular Hemoglobin 30.7 pg (27.0-31.0); Mean Corpuscular Volume 92.8 fL (78.0-98.0); Mean Platelet Volume 7.4 fL (7.4-10.4); Platelet Count 502 thou/uL (130-400); RBC Distribution Width 15.9 % (11.5-14.5); Red Blood Cell (RBC) Count 2.57 mill/uL (4.70-6.10); White Blood Cell (WBC) Count 13.7 thou/uL (4.8-10.8)
[2020-03-25 06:06] LABS: INR-International Normal Ratio 1.3; PTT 52.3 sec (22.9-36.1); Prothrombin Time 16.6 sec (12.0-14.7)
[2020-03-25 06:16] LABS: Anion Gap 16 mmol/L (10-20); BUN (Urea Nitrogen) 48 mg/dL (8.4-25.7); Calc. Creatinine Clearance 15 mL/min (70-130); Calcium 6.8 mg/dL (7.8-10.44); Carbon Dioxide 20 mmol/L (23-31); Chloride 104 mmol/L (98-107); Estimated GFR-MDRD 15; Glucose 193 mg/dL (80-115); Potassium 3.7 mmol/L (3.5-5.1); Sodium 136 mmol/L (136-145)
[2020-03-25] MEDS: Saccharomyces boulardii 250 MG CAP PO SCH (08:29)
[2020-03-25] MEDS: Calcium Acetate 667 MG CAP PO SCH ×3 (08:29→16:37)
[2020-03-25] MEDS: Sodium Bicarbonate Tab 325 MG TAB PO SCH ×3 (08:29→21:02)
[2020-03-25] MEDS: Calcitriol 0.25 MCG CAP PO SCH (08:29)
--- NOTE | 2020-03-25 09:39 | PRG ---
DATE OF SERVICE: 03/25/2020 SUBJECTIVE: Mr. Moore is a 69-year-old white male, who has chronic renal failure from diabetic nephropathy and initially admitted for right foot gangrene. He underwent a right BKA. He is doing better. He denies any complaints. He denies any chest pain or shortness of breath. I rediscussed dialysis with him. He is still hesitant to proceed with it. OBJECTIVE: VITAL SIGNS: Blood pressure 138/74, heart rate 91, respiratory rate 18, temperature 97.4, and O2 saturation 97%. GENERAL: The patient is awake, sitting comfortable, not in overt distress. SKIN: Adequate turgor. HEENT: Pale conjunctivae. Anicteric sclerae. NECK: No neck mass. No carotid bruits. No JVD. CHEST: No deformities. LUNGS: Clear breath sounds. HEART: Normal sinus rhythm. No murmur. No gallops. No rubs. ABDOMEN: Globular, soft, nontender. No masses. EXTREMITIES: No edema. Status post right BKA. MEDICATIONS: Of March 25, 2020, reviewed. LABORATORY DATA: Of March 25, 2020; white count 13.7, hemoglobin 7.9. Sodium 136, potassium 3.7, chloride 104, carbon dioxide 20, BUN 48, creatinine 4.08, glucose 193, and calcium 6.8. ASSESSMENT AND PLAN: 1. Chronic renal failure from diabetic nephropathy. Creatinine noted at 4.08 with a GFR of 15 mL/minute. I have already made a recommendation for the patient to consider initiating dialysis. He is interested eventually on peritoneal dialysis. However, he does not want to initiate at the present time. 2. Hypocalcemia/hyperphosphatemia, currently on calcium acetate. 3. Anemia, continuing weekly Epogen. 4. Status post gangrene, right foot-the patient recently is status post right indjm-xrl-mdyk amputation. Awaiting rehab evaluation. Recheck CBC, basic met. Job ID: [id number]
--- NOTE | 2020-03-25 21:43 | PDOC.HOSPP ---
- Subjective Encounter Date: 03/25/20 Encounter Time: 09:45 Subjective: Patient seen and examined for diabetic foot infection requiring amputation. Pain controlled. Denies any fever or chills. - Objective Vital Signs & Weight: Vital Signs (12 hours) Temp Pulse Resp BP Pulse Ox 03/25/20 20:49 98 F 100 16 115/63 94 L 03/25/20 15:35 98.1 F 95 18 151/75 H 95 03/25/20 10:51 97.9 F 100 18 137/62 97 Weight Weight 133 lb I&O: 03/24/20 03/25/20 03/26/20 06:59 06:59 06:59 Intake Total 1600 5800 Output Total 2175 Balance 1600 3625 Result Diagrams: 03/25/20 05:27 03/25/20 05:27 Additional Labs: Accuchecks 03/25/20 03/25/20 03/25/20 20:54 15:38 10:56 POC Glucose 200 H 220 H 261 H 03/25/20 03/24/20 05:42 11:58 POC Glucose 182 H 205 H Hospitalist ROS - Review of Systems Respiratory: denies: cough, dry, shortness of breath, hemoptysis, SOB with excertion, pleuritic pain, sputum, wheezing, other Cardiovascular: denies: chest pain, palpitations, orthopnea, paroxysmal noc. dyspnea, edema, light headedness, other - Medication Medications: Active Medications Generic Name Dose Route Start Last Admin Trade Name Freq PRN Reason Stop Dose Admin Acetaminophen 650 mg 03/21/20 12:30 03/23/20 00:35 Acetaminophen 325 Mg Tab PO 650 mg Q8H PRN Administration Headache/Fever/Mild Pain (1-3) Hydrocodone Bitart/Acetaminophen 2 tab 03/23/20 01:19 03/25/20 16:39 Hydrocodone/Acetaminophen 5/325 Mg Tablet PO 2 tab Q4H PRN Administration Moderate to Severe Pain (6-10) Calcitriol 0.25 mcg 03/22/20 09:00 03/25/20 08:29 Calcitriol 0.25 Mcg Cap PO 0.25 mcg DAILY GADIEL Administration Calcium Acetate 1,334 mg 03/22/20 08:00 03/25/20 16:37 Calcium Acetate 667 Mg Cap PO 1,334 mg TID-WM GADIEL Administration Epoetin Lars-epbx 7,500 unit 03/22/20 09:00 03/22/20 14:02 Epoetin Lars-Epbx (Esrd) 4,000 Unit/Ml Vial SC 7,500 unit Q7D GADIEL Administration Sodium Bicarbonate 100 meq/ 1,100 mls @ 100 mls/hr 03/24/20 06:15 03/25/20 14:21 Sodium Chloride IV 1,100 mls .Q11H GADIEL Administration Meropenem 500 mg/ Sodium 100 mls @ 200 mls/hr 03/24/20 12:00 03/25/20 21:02 Chloride IVPB 100 mls Q8H GADIEL Administration Insulin Human Lispro 0 units 03/21/20 12:33 03/25/20 16:37 Humalog 300 Units/3 Ml Vial SC 3 unit .MILD SLIDING SCALE PRN Administration Mild Correctional Scale Ondansetron HCl 4 mg 03/21/20 12:30 03/23/20 19:23 Ondansetron Pf 4 Mg/2 Ml Vial IVP 4 mg Q6H PRN Administration Nausea/Vomiting Saccharomyces Boulardii 250 mg 03/22/20 09:00 03/25/20 08:29 Saccharomyces Boulardii 250 Mg Cap PO 250 mg DAILY GADIEL Administration Sodium Bicarbonate 650 mg 03/22/20 09:00 03/25/20 21:02 Sodium Bicarbonate Tab 325 Mg Tab PO 650 mg TID GADIEL Administration Sodium Chloride 10 ml 03/24/20 21:00 03/25/20 21:02 Flush - Normal Saline 10 Ml Syringe IVF 10 ml Q12HR GADIEL Administration - Exam General Appearance: NAD Neck: supple, no JVD Heart: RRR, no gallops Respiratory: no wheezes, no ronchi Gastrointestinal: soft, non-distended Extremities: no cyanosis, no clubbing Hosp A/P - Plan DVT proph w/SCDs Sepsis due to diabetic right foot infection with gangrene s/p amputation Diabetes mellitus type 2 with diabetic nephropathy CKD stage V Chronic metabolic acidosis due to renal failure Anemia probably due to renal insufficiency History of DVT on heparin drip Hyponatremia with sodium of 127 on admission Benign prostatic hypertrophy Coronary artery disease status post stent Secondary hyperparathyroidism Other issues per previous notes Plan: Monitor H&H. Continue IV meropenem. Change antibiotics to ciprofloxacin at discharge. Will reduce IV fluid to 50 mL/h. Recheck hemoglobin in a.m. Continue other medications. Continue sliding scale.
[2020-03-26] MEDS: Meropenem 500 MG in Sodium Chloride 0.9% 100 ML IVPB SCH ×3 (03:28→19:43)
[2020-03-26 05:35] LABS: #Basophils 0.1 thou/uL (0.0-0.2); #Eosinphils 0.3 thou/uL (0.0-0.7); #Lymphocytes 1.6 thou/uL (1.20-3.40); #Neutrophils 11.4 thou/uL (1.40-6.50); %Basophils 0.4 % (0.0-1.0); %Eosinophils 2.3 % (0.0-10.0); %Lymphocytes 10.8 % (21.0-51.0); %Neutrophils 79.5 % (42.0-75.0); Hemoglobin 7.8 g/dL (14.0-18.0); Mean Corpuscular HGB CONC 31.8 g/dL (32.0-36.0); Mean Corpuscular Hemoglobin 29.7 pg (27.0-31.0); Mean Corpuscular Volume 93.4 fL (78.0-98.0); Mean Platelet Volume 7.2 fL (7.4-10.4); Platelet Count 533 thou/uL (130-400); RBC Distribution Width 17.3 % (11.5-14.5); Red Blood Cell (RBC) Count 2.64 mill/uL (4.70-6.10); White Blood Cell (WBC) Count 14.3 thou/uL (4.8-10.8)
[2020-03-26] MEDS: HumaLOG 300 UNITS/3 ML VIAL SC PRN ×3 (05:42→18:10)
[2020-03-26] MEDS: HYDROcodone/Acetaminophen 5/325 mg Tablet PO PRN ×4 (05:48→20:56)
[2020-03-26 05:54] LABS: Anion Gap 13 mmol/L (10-20); BUN (Urea Nitrogen) 42 mg/dL (8.4-25.7); Calc. Creatinine Clearance 16 mL/min (70-130); Calcium 7.4 mg/dL (7.8-10.44); Carbon Dioxide 26 mmol/L (23-31); Chloride 101 mmol/L (98-107); Estimated GFR-MDRD 16; Glucose 189 mg/dL (80-115); Potassium 4.3 mmol/L (3.5-5.1); Sodium 136 mmol/L (136-145)
--- NOTE | 2020-03-26 06:36 | PRG ---
DATE OF SERVICE: 03/25/2020 SUBJECTIVE: Mr. Moore is postoperative day #1 from right below-knee amputation. This is performed following a guillotine amputation of his right foot by Dr. Beltre on March 21. Mr. Moore is resting comfortably in bed. He acknowledges appropriate discomfort and what I believe he is describing as phantom pain. He still has his knee immobilizer and compression dressing on his stump. He tells me he has been eating well. PHYSICAL EXAMINATION: VITAL SIGNS: He is afebrile. Pulse is between and 100, blood pressure is 150/70. GENERAL: Alert and interactive, without significant complaint. LUNGS: Clear to auscultation. EXTREMITIES: Dressings intact and not disturbed. LABORATORY DATA: His hemoglobin is 7.9 today, down from 9.1 yesterday morning. His white blood cell count 13.7. His electrolytes reveal a creatinine of 4.08, and this is stable for him. Glucose levels are running between 180 and 260. ASSESSMENT: He is stable following right leg below-knee amputation. He will need to initiate physical therapy in the near future. Dr. Beltre will resume care tomorrow. Dressing change would typically be performed second or third day after his amputation. Job ID: [id number]
[2020-03-26] MEDS: Calcium Acetate 667 MG CAP PO SCH ×3 (08:08→16:11)
[2020-03-26] MEDS: Calcitriol 0.25 MCG CAP PO SCH (08:08)
[2020-03-26] MEDS: Saccharomyces boulardii 250 MG CAP PO SCH (08:08)
[2020-03-26] MEDS: Sodium Bicarbonate Tab 325 MG TAB PO SCH ×3 (08:08→19:42)
--- NOTE | 2020-03-26 10:10 | PRG ---
DATE OF SERVICE: 03/26/2020 SERVICE: Renal Medicine. SUBJECTIVE: Mr. Moore is a 69-year-old white male who was initially admitted for right foot with gangrene. He underwent a right BKA for this. He was also seen by the Renal Service for his acute kidney injury on top of his chronic renal failure. He was empirically volume repleted. In addition, renal function is slowly improving. Voices no new complaints today. He is being evaluated for rehab placement. OBJECTIVE: VITAL SIGNS: Blood pressure is 136/74, heart rate 96, respiratory rate 16, temperature 97.7, and O2 saturation 96%. GENERAL: The patient is awake, alert, comfortable, not in overt distress. SKIN: Adequate turgor. HEENT: He has slightly pale conjunctivae. Anicteric sclerae. NECK: No neck mass. No carotid bruits. No JVD. CHEST: No deformities. LUNGS: Clear breath sounds. No wheezing. No crackles. HEART: Normal sinus rhythm. No murmur. No gallops or rubs. ABDOMEN: Globular, soft, nontender. No masses. EXTREMITIES: No edema. Status post right BKA. MEDICATIONS: Of March 26, 2020, were reviewed. LABORATORY DATA: Laboratories of March 26, 2020; white count 14.3, hemoglobin 7.8. Sodium 136, potassium 4.3, chloride 101, carbon dioxide 26, BUN 42, creatinine 3.79, GFR 16 mL/minute, calcium 7.4. ASSESSMENT AND PLAN: 1. Chronic renal failure/acute kidney injury - superimposed prerenal azotemia, much improved with volume repletion. GFR has now gone up to about 16 mL/minute from as low as 13 mL/minute. No indication for emergent hemodialysis. As previously mentioned, this patient will eventually need dialytic intervention. 2. Right foot gangrene - status post dwwgk-maj-[id number] amputation, doing well on IV antibiotics. Surgery is following. 3. Anemia. Continue weekly Epogen. Overall, agree with current management. Job ID: [id number]
[2020-03-26 12:01] VITALS: TEMP 98
--- NOTE | 2020-03-26 16:52 | PDOC.HOSPP ---
- Subjective Encounter Date: 03/26/20 Encounter Time: 11:00 Subjective: Patient was seen and examined for gangrene. Pain controlled. No chest pain or shortness of breath. No fevers or chills. - Objective Vital Signs & Weight: Vital Signs (12 hours) Temp Pulse Resp BP Pulse Ox 03/26/20 15:40 98.0 F 88 18 144/81 H 95 03/26/20 10:42 98.0 F 100 18 150/69 H 93 L 03/26/20 08:14 97.7 F 96 16 136/74 96 Weight Weight 133 lb I&O: 03/25/20 03/26/20 03/27/20 06:59 06:59 06:59 Intake Total 7510 Output Total 3525 Balance 3985 Result Diagrams: 03/26/20 05:19 03/26/20 05:19 Additional Labs: Accuchecks 03/26/20 03/26/20 03/25/20 10:46 05:27 20:54 POC Glucose 229 H 187 H 200 H Hospitalist ROS - Review of Systems Respiratory: denies: cough, dry, shortness of breath, hemoptysis, SOB with excertion, pleuritic pain, sputum, wheezing, other Cardiovascular: denies: chest pain, palpitations, orthopnea, paroxysmal noc. dyspnea, edema, light headedness, other - Medication Medications: Active Medications Generic Name Dose Route Start Last Admin Trade Name Freq PRN Reason Stop Dose Admin Acetaminophen 650 mg 03/21/20 12:30 03/23/20 00:35 Acetaminophen 325 Mg Tab PO 650 mg Q8H PRN Administration Headache/Fever/Mild Pain (1-3) Hydrocodone Bitart/Acetaminophen 2 tab 03/23/20 01:19 03/26/20 16:11 Hydrocodone/Acetaminophen 5/325 Mg Tablet PO 2 tab Q4H PRN Administration Moderate to Severe Pain (6-10) Calcitriol 0.25 mcg 03/22/20 09:00 03/26/20 08:08 Calcitriol 0.25 Mcg Cap PO 0.25 mcg DAILY GADIEL Administration Calcium Acetate 1,334 mg 03/22/20 08:00 03/26/20 16:11 Calcium Acetate 667 Mg Cap PO 1,334 mg TID-WM GADIEL Administration Epoetin Lars-epbx 7,500 unit 03/22/20 09:00 03/22/20 14:02 Epoetin Lars-Epbx (Esrd) 4,000 Unit/Ml Vial SC 7,500 unit Q7D GADIEL Administration Meropenem 500 mg/ Sodium 100 mls @ 200 mls/hr 03/24/20 12:00 03/26/20 11:40 Chloride IVPB 100 mls Q8H GADIEL Administration Sodium Bicarbonate 100 meq/ 1,100 mls @ 50 mls/hr 03/25/20 22:15 03/25/20 22:11 Sodium Chloride IV 1,100 mls .Q22H GADIEL Administration Insulin Human Lispro 0 units 03/21/20 12:33 03/26/20 11:40 Humalog 300 Units/3 Ml Vial SC 3 unit .MILD SLIDING SCALE PRN Administration Mild Correctional Scale Ondansetron HCl 4 mg 03/21/20 12:30 03/23/20 19:23 Ondansetron Pf 4 Mg/2 Ml Vial IVP 4 mg Q6H PRN Administration Nausea/Vomiting Saccharomyces Boulardii 250 mg 03/22/20 09:00 03/26/20 08:08 Saccharomyces Boulardii 250 Mg Cap PO 250 mg DAILY GADIEL Administration Sodium Bicarbonate 650 mg 03/22/20 09:00 03/26/20 16:11 Sodium Bicarbonate Tab 325 Mg Tab PO 650 mg TID GADIEL Administration Sodium Chloride 10 ml 03/24/20 21:00 03/26/20 08:08 Flush - Normal Saline 10 Ml Syringe IVF Not Given Q12HR GADIEL - Exam General Appearance: NAD Heart: RRR, no gallops Respiratory: no wheezes, no ronchi Gastrointestinal: soft, non-tender, normal bowel sounds Extremities: no cyanosis, no clubbing Hosp A/P - Plan Sepsis due to diabetic right foot infection with gangrene s/p amputation Diabetes mellitus type 2 with diabetic nephropathy CKD stage V Chronic metabolic acidosis due to renal failure Anemia probably due to renal insufficiency History of DVT - diagnosed in 03/05 Hyponatremia with sodium of 127 on admission Benign prostatic hypertrophy Coronary artery disease s/p stent Secondary hyperparathyroidism Other issues per previous notes Plan: Continue meropenemchange to ciprofloxacin at discharge. Discontinue IV fluid i n 24 hours if okay with nephrology. Await inpatient rehab placement. Continue sodium bicarbonate. Pain control. Continue sliding scale. A.m. labs ordered. Diagnostic tests: Right foot x-ray11/5subcutaneous emphysema at the right foot Right tibia fibula x-ray03/21negative for fractures or dislocation
--- NOTE | 2020-03-26 18:55 | PDOC.DS.DS ---
Provider - Provider Date of Admission: 03/21/20 17:08 Date of Discharge: 03/26/20 Admitting Provider: India Mendieta MD Consultations: General Surgery, Nephrology Primary Care Physician: Elissa Azul DO Course - Hospital Course Hospital Course: Patient is a 69-year-old male with diabetes mellitus type 2, status post right transmetatarsal amputation and CKD presented to the emergency room with right foot pain. His work-up was consistent with gas gangrene requiring emergent below-knee amputation with form 1 below-knee amputation on 03/24. He was initially placed on vancomycin and Zosyn that was transitioned to meropenem based on the antibiotic sensitivity. The antibiotics will be transitioned to ciprofloxacin. His CRP on admission was 15.26. Hemoglobin A1c was 7.0 Patient was seen by nephrology Dr. Rodrigues due to CKD. His creatinine maximum was 4.65. At discharge the creatinine was 3.79. He also had hyponatremia with sodium of 127 on admission that has improved to 136 at discharge. Patient has a history of DVT that was diagnosed 2 to 3 weeks ago. He takes Eliquis at home. He was placed on heparin drip which was held for surgery. He will be started on Lovenox based on renal function. Final diagnosis: Sepsis due to diabetic right foot infection with gangrene s/p amputation Diabetes mellitus type 2 with diabetic nephropathy CKD stage V Chronic metabolic acidosis due to renal failure Anemia probably due to renal insufficiency History of DVT - diagnosed in 03/05 Hyponatremia with sodium of 127 on admission Benign prostatic hypertrophy Coronary artery disease s/p stent Secondary hyperparathyroidism Time coordinating the discharge of this patient was 38 minutes. Resuscitation Status: 03/21/20 12:30 Resuscitation Status Routine Resuscitation Status: FULL: Full Resuscitation - Labs Lab Results: 03/26/20 05:19 03/26/20 05:19 Abnormal Lab Results - Last 48 hrs 03/25/20 05:27: PT 16.6 H, APTT 52.3 H 03/25/20 05:27: Carbon Dioxide 20 L, BUN 48 H, Creatinine 4.08 H, Calcium 6.8 L 03/25/20 05:27: WBC 13.7 H, RBC 2.57 L, Hgb 7.9 L, Hct 23.9 L, RDW 15.9 H, Plt Count 502 H, Neutrophils % 79.2 H, Lymphocytes % 11.0 L, Neutrophils # 10.9 H, Monocytes # 1.0 H 03/26/20 05:19: BUN 42 H, Creatinine 3.79 H, Calcium 7.4 L 03/26/20 05:19: WBC 14.3 H, RBC 2.64 L, Hgb 7.8 L, Hct 24.6 L, MCHC 31.8 L, RDW 17.3 H, Plt Count 533 H, MPV 7.2 L, Neutrophils % 79.5 H, Lymphocytes % 10.8 L, Neutrophils # 11.4 H, Monocytes # 1.0 H Microbiology - Entire Visit 03/21/20 10:34 Venous blood - Right Arm Blood Culture - Final NO GROWTH IN 5 DAYS 03/21/20 10:38 Venous blood - Left Arm Blood Culture - Final NO GROWTH IN 5 DAYS 03/21/20 16:24 Foot - Swab Bacterial Culture - Final Morganella morganii ssp leoncio Staphylococcus aureus Gram Negative David#2 03/21/20 16:24 Foot - Swab Anaerobic Culture - Final Anaerobic Gram Negative David Anaerobic Gram Negative David#2 Anaerobic Gram Positive Cocci Anaerobic Gram Negative David#3 Anaerobic Gram Negative David#5 Anaerobic Gram Negative David#6 03/21/20 10:21 Foot - Pending Bacterial Culture - Final Morganella morganii ssp leoncio Escherichia coli 03/22/20 00:00 Stool C. difficile GDH Antigen & Toxins - Final - Diagnostic Interpretation Other Additional comments: Right foot x-rayubcutaneous emphysema at the right foot Right tibia fibula x-ray03/21negative for fractures or dislocation - Physical Exam Vitals: Vital Signs (12 hours) Temp Pulse Resp BP Pulse Ox 03/26/20 15:40 98.0 F 88 18 144/81 H 95 03/26/20 10:42 98.0 F 100 18 150/69 H 93 L 03/26/20 08:14 97.7 F 96 16 136/74 96 Weight Weight 133 lb Physical Exam: The patient was seen and examined on the day of discharge. Plan - Discharge Medications Prescriptions: Enoxaparin Sodium [Lovenox] 30 mg SC Q12HR #30 syringe Ciprofloxacin HCl 250 mg PO BID #20 tablet NPH, Human Insulin Isophane [HumuLIN N] 5 unit SC BID #1 vial Home Medications: Medication Instructions Recorded Confirmed Type Insulin Lispro [HumaLOG KwikPen] 0 unit SC AC PRN 11/10/13 11/01/16 History Aspirin [Aspir-Low] 81 mg PO DAILY 10/21/16 11/01/16 History Sodium Bicarbonate 650 mg PO TID 10/21/16 11/01/16 History Ciprofloxacin HCl 250 mg PO BID #20 tablet 03/26/20 Rx Enoxaparin Sodium [Lovenox] 30 mg SC Q12HR #30 syringe 03/26/20 Rx HYDROcodone Bit/APAP 5/325 [[place]] 1 tab PO Q4H PRN tab 03/26/20 Rx NPH, Human Insulin Isophane 5 unit SC BID #1 vial 03/26/20 Rx [HumuLIN N] Saccharomyces boulardii [Florastor] 250 mg PO DAILY cap 03/26/20 Rx Sennosides/Docusate Sodium 2 tab PO BID PRN tab 03/26/20 Rx [Senokot S] Allergies: sulfamethoxazole [From Bactrim] Allergy (Verified 03/22/20 03:43) PER ER REPORT trimethoprim [From Bactrim] Allergy (Verified 03/22/20 03:43) - Follow up Plan Referrals: Sveta Beltre MD [Active] - 7 Days Elissa Azul DO [Primary Care Provider] - 7 Days Alexandre Rodrigues MD [Active] - 7 Days Disposition: REHABILITATION INPATIENT Quality - Care Measures CORE MEASURES:: N/A
--- NOTE | 2020-03-26 19:09 | PDOC.GSPN ---
Surgery Progress Note: Subj - Subjective Narrative: Patient seen on afternoon rounds. Pain is controlled. Cooperating with physical therapy. He had not yet signed a choice sheet for rehab since he had some questions about inpatient rehab. I was able to answer these questions for him. Hemoglobin stable. Vital signs stable. Creatinine stable. Stump is soft without swelling or bleeding through the bandage. Assessment/plan: Status post right below-knee amputation doing well. OR dressing will be removed tomorrow and stump coat cutter can be placed. Continue physical therapy. Inpatient rehab recommended and patient wants to proceed with this. Surgery Progress Note: Obj - Vital signs Vital signs: Vital Signs - Most Recent Temp Pulse Resp BP Pulse Ox 98.0 F 88 18 144/81 H 95 03/26/20 15:40 03/26/20 15:40 03/26/20 15:40 03/26/20 15:40 03/26/20 15:40 Surgery Progress Note: Results - Labs Result Diagrams: 03/26/20 05:19 03/26/20 05:19 Lab results: Laboratory Results - last 12 hr 03/26/20 03/26/20 10:46 16:52 POC Glucose 229 H 242 H
[2020-03-26] MEDS: Sodium Bicarbonate 100 MEQ in Sodium Chloride 0.45% 1,000 ML IV SCH (19:43)
[2020-03-26 21:09] VITALS: BP 158/78
--- NOTE | 2020-03-29 11:03 | OP ---
DATE OF PROCEDURE: 03/24/2020 PROCEDURE PERFORMED: Right below-knee amputation. PREOPERATIVE DIAGNOSES: Gas gangrene of the right foot, status post guillotine amputation with need for revision to closed below-knee amputation. POSTOPERATIVE DIAGNOSES: Gas gangrene of the right foot, status post guillotine amputation with need for revision to closed below-knee amputation. HISTORY OF PRESENT ILLNESS: Mr. Moore is a 69-year-old man, who presented with sepsis and gas gangrene of his right foot. He underwent an emergent guillotine amputation due to full anticoagulation and sepsis, to remove the source of his sepsis. He has improved since that time, was maintained on a heparin drip, which had been stopped 12 hours prior to his operation. He now presents for closed revision of his right below-knee amputation. DESCRIPTION OF PROCEDURE: After informed consent was obtained and appropriate preoperative antibiotics were continued, the patient was taken to the operating room, where he was placed in supine position and general anesthesia was administered. He was prepped and draped in standard sterile fashion excluding the open wound from the operative field. Short anterior and long anterior flaps were measured out and marked on the skin. The skin was incised and dissection carried down by Bovie electrocautery through the subcutaneous tissue and muscles anterior to the tibia, which were cleared anteriorly. A periosteal elevator was used to elevate the periosteum and a hemostat was placed behind the tibia. A Gigli saw was passed through and used to transect the tibia angling upward anteriorly to avoid a sharp edge on the bone. The muscles posterior to the tibia were then divided and the anterior tibial vessels suture ligated. The fibula was cleared circumferentially and transected using a bone cutter at a level several centimeters proximal to the tibial transection. The posterior flap was then incised and dissection carried down using Bovie electrocautery to the level of the muscle. An amputation blade was placed behind the tibia and fibula and the posterior flap created using the amputation blade. The tibioperoneal trunk was identified and suture ligated and multiple small muscular bleeders were controlled using either suture ligation or Bovie electrocautery. The posterior flap was trimmed to the appropriate length and hemostasis verified. The edges of the tibia were smoothed using the bone rasp and the fibular edges were smoothed using the rongeur. The wound was again irrigated and hemostasis again verified. The muscular fascia was reapproximated with interrupted [id number] 2-0 Vicryl sutures and the deep dermal tissue was reapproximated with interrupted [id number] 3-0 Vicryl sutures. The skin was then closed using skin augustine. Xeroform and gauze were placed over the incision and the stump was wrapped with Kerlix and Donovan bandages. The leg was placed in a knee immobilizer and the patient was extubated and taken to Recovery in good condition. Estimated blood loss was minimal. There were no complications. There were no specimens. Job ID: [id number] [facility]
== END 2020-03-26 21:07 | DRG 853 ==
LOC: ERS 10:04 → SDC 14:07 → SJJU 17:08
PROVIDERS: ADMIT Internal Medicine; ATTEND Internal Medicine
PROC: 0Y6M0Z0 Detachment at Right Foot, Complete, Open Approach (ICD-10-PCS; 2020-03-21)
PROC: 0Y6H0Z1 Detachment at Right Lower Leg, High, Open Approach (ICD-10-PCS; principal; 2020-03-24)
DX: A41.9 Sepsis, unspecified organism (principal); A48.0 Gas gangrene; E11.52 Type 2 diabetes mellitus with diabetic peripheral angiopathy with gangrene; N25.81 Secondary hyperparathyroidism of renal origin; E87.2 Acidosis; N18.5 Chronic kidney disease, stage 5; I12.0 Hypertensive chronic kidney disease with stage 5 chronic kidney disease or end stage renal disease; E87.1 Hypo-osmolality and hyponatremia; I25.10 Atherosclerotic heart disease of native coronary artery without angina pectoris; E11.22 Type 2 diabetes mellitus with diabetic chronic kidney disease; N40.0 Benign prostatic hyperplasia without lower urinary tract symptoms; E11.319 Type 2 diabetes mellitus with unspecified diabetic retinopathy without macular edema; Z98.42 Cataract extraction status, left eye; I73.9 Peripheral vascular disease, unspecified; E87.8 Other disorders of electrolyte and fluid balance, not elsewhere classified; D64.9 Anemia, unspecified; E11.21 Type 2 diabetes mellitus with diabetic nephropathy; Z87.891 Personal history of nicotine dependence; Z95.5 Presence of coronary angioplasty implant and graft; Z88.8 Allergy status to other drugs, medicaments and biological substances; Z88.1 Allergy status to other antibiotic agents; Z98.890 Other specified postprocedural states; Z88.2 Allergy status to sulfonamides; Z86.718 Personal history of other venous thrombosis and embolism; E83.39 Other disorders of phosphorus metabolism; E83.51 Hypocalcemia; D63.1 Anemia in chronic kidney disease; Z20.828 Contact with and (suspected) exposure to other viral communicable diseases
CPT/HCPCS: 36415; 36416; 80048; 80053; 80202; 82607; 82728; 82746; 83036; 83540; 83550; 83605; 85025; 85610; 85652; 85730; 86140; 86850; 86900; 86901; 87040; 87070; 87077; 87186; 87205; 87324; 87449; 88305; 88307; 88311; 88312; 93005; 94760; 96365; 96367; 96368; J0692; J1200; J1644; J2185; J2370; J2405; J2543; J2704; J2916; J3010; J3370; J3490; Q5105; U0002

== ENCOUNTER 2020-04-05 21:27 | Inpatient (IN) | payer MEDICARE, MEDICAID ==
[2020-04-05] MEDS ORDERED: Acetaminophen 500 MG TAB ONE (21:45)
[2020-04-05 22:30] LABS: #Lymphocytes 0.6 thou/uL (1.20-3.40); #Monocytes 0.4 thou/uL (0.11-0.59); #Neutrophils 8.2 thou/uL (1.40-6.50); %Basophils 0.3 % (0.0-1.0); %Eosinophils 0.1 % (0.0-10.0); %Lymphocytes 6.2 % (21.0-51.0); %Monocytes 3.8 % (0.0-10.0); %Neutrophils 89.6 % (42.0-75.0); Hemoglobin 7.3 g/dL (14.0-18.0); Mean Corpuscular HGB CONC 31.7 g/dL (32.0-36.0); Mean Corpuscular Hemoglobin 29.6 pg (27.0-31.0); Mean Corpuscular Volume 93.1 fL (78.0-98.0); Mean Platelet Volume 7.3 fL (7.4-10.4); Platelet Count 416 thou/uL (130-400); RBC Distribution Width 16.4 % (11.5-14.5); Red Blood Cell (RBC) Count 2.48 mill/uL (4.70-6.10); White Blood Cell (WBC) Count 9.2 thou/uL (4.8-10.8)
[2020-04-05] MEDS ORDERED: cefTRIAXone\\ROCEPHIN 1 GM VIAL ONE (22:30)
[2020-04-05] MEDS ORDERED: Dexamethasone 10 MG/ML VIAL ONE (22:30)
--- NOTE | 2020-04-05 22:40 | RAD ---
Frontal radiograph chest: 04/05/2020 at 10:20 PM COMPARISON: 04/05/2020 at 11:03 AM HISTORY: Short of breath FINDINGS: There has been interval development of bilateral perihilar airspace disease, right greater than left. New dense consolidative change noted in the right lung base. There is worsening airspace disease within the left base with small bilateral pleural effusions, right greater than left, worsene d as well. IMPRESSION: Marked interval worsening of perihilar and bibasilar aeration suggesting pulmonary edema, infectious pneumonitis, and/or aspiration.
[2020-04-05 22:51] LABS: ALT (SGPT) 45 U/L (8-55); AST (SGOT) 41 U/L (5-34); Albumin 3.4 g/dL (3.4-4.8); Alkaline Phosphatase 209 U/L (40-110); Anion Gap 18 mmol/L (10-20); BUN (Urea Nitrogen) 57 mg/dL (8.4-25.7); Bilirubin, Total 0.3 mg/dL (0.2-1.2); Calc. Creatinine Clearance 0 mL/min (70-130); Calcium 8.3 mg/dL (7.8-10.44); Carbon Dioxide 20 mmol/L (23-31); Chloride 96 mmol/L (98-107); Estimated GFR-MDRD 13; Globulin 3.5 g/dL (2.4-3.5); Glucose 106 mg/dL (80-115); Lipase Less than 4 U/L (8-78); Protein, Total 6.9 g/dL (5.8-8.1); Sodium 129 mmol/L (136-145)
[2020-04-05 23:11] LABS: CKMB 1.3 ng/mL (0-6.6)
[2020-04-06] MEDS ORDERED: Azithromycin 250 MG TAB PO SCH (00:15)
[2020-04-06] MEDS ORDERED: Aspirin Chewable 81 MG TAB ONE (00:27)
[2020-04-06] MEDS ORDERED: Apixaban 5 MG TAB PO SCH (00:30)
[2020-04-06 01:46] LABS: Troponin I 0.065 ng/mL (< 0.028)
[2020-04-06] MEDS ORDERED: Acetaminophen 650 MG Suppository PR PRN (03:43)
[2020-04-06] MEDS ORDERED: Acetaminophen 325 MG TAB PO PRN (03:43)
--- NOTE | 2020-04-06 04:10 | PDOC.HHP ---
Hospitalist HPI - History of Present Illness History of Present Illness: ADMISSION DATE: 04/06/2020 TIME OF ASSESSMENT: 0300 PRIMARY CARE PHYSICIAN: Dr. Mcgraw CHIEF COMPLAINT: Fever and shortness of breath HPI: Patient is a 69-year-old gentleman who was brought into the emergency department from the [facility] due to desaturation while at rehab. He was placed on 15 L nonrebreather and had sats of 90%. Also noted to have a fever. Patient was slightly tachy with paramedics and had a heart rate of 108. BP was 160/84. Is known to be Covid positive.He is status post right BKA done [address] Beltre. And has been at the rehab facility since discharge. Currently the patient states he is feeling significantly better than he did in the emergency department. He states his breathing feels well at the moment. Denies having any chest pain palpitations. Has not had any recent cough or hemoptysis. Reports having fever today but denies having any chills or sweats. No nausea or vomiting. Denies any abdominal pain. No bowel changes. Denies any urinary symptoms. Does not have any underlying lung conditions such as COPD or asthma. Does not use oxygen at home. All other review of systems are neg ative. ED COURSE: In the emergency department he had an EKG done that showed A. fib with a heart rate of 105. No ST changes or T wave abnormalities. He had a chest x-ray done this evening showing marked interval worsening of perihilar and bibasilar aeration suggesting pulmonary edema, infectious p neumonitis and/or aspiration. This was compared to chest x-ray done 04/05/2020 at 11 AM. Laboratory studies showed a white count of 9.2, hemoglobin 7.3, hematocrit 23.1, platelets 416. Neutrophils 89.6%. D-dimer elevated at 3.83. Sodium 129, BUN 57, creatinine 4.59, GFR 13. Lactic acid 0.9. Calcium 8.3. Total bilirubin 0.3. AST 41, ALT 45, alk phos 209, CK-MB 1.3. Troponin 0 0.050, 0.065. BNP 963.5. Lipase negative. Medications given in the emergency department include aspirin 324 mg. Patient given Eliquis 10 mg p.o. He was started on IV antibiotics with azithromycin and Rocephin. He received 500 mils of normal saline. Given 10 mg of dexamethasone p.o. and received 1 g of Tylenol due to fever of 102.2. CT angiogram was ordered in the emergency department but then canceled given his chronic kidney disease. Blood cultures were done as well as urinalysis and urine culture. Admission requested for Covid pneumonia/hypoxia. PAST MEDICAL HISTORY: 1. Chronic kidney disease 2. Diabetic neuropathy 3. CAD 4. Diabetes 5. BPH 6. Anemia 7. History of pancreatitis 8. Previous tobacco use PAST SURGICAL HISTORY: 1. Cardiac stent 2. Hernia repair x2 3. Tonsillectomy 4. Left ankle surgery 5. Left leg surgery 6. Right foot amputation 7. Right BKA SOCIAL HISTORY: Currently at rehab facility. Former tobacco user and quit less than 10 years ago. Previously smoked for 30 years. Denies any heavy alcohol consumption or drug use. FAMILY HISTORY: Noncontributory ALLERGIES: Bactrim Trimethoprim CURRENT MEDICATIONS: Aspirin 81 mg p.o. daily Lovenox 30 mg subcutaneous every 12 hours Hydrocodone p.o. as needed Insulin Humulin 5 units subcutaneous twice daily Senna 2 tablets p.o. twice daily Sodium bicarb 650 mg p.o. twice daily - Exam General Appearance: NAD (Patient resting comfortably, no respiratory distress), awake alert General - other findings: Sats 93% on 4L by NC, HR 90s. BP stable. Temp normal. Eye: PERRL ENT: normocephalic atraumatic, dry oral mucosa Neck: supple, no lymphadenopathy Heart: RRR Respiratory: CTAB, no wheezes, no rales, normal chest expansion Gastrointestinal: soft, non-tender, non-distended, normal bowel sounds Extremities: 2+ LE edema (left lower extremity) Extremities - other findings: Right BKA Skin: normal turgor, no rashes Neurological: cranial nerve grossly intact, normal sensation to touch Musculoskeletal: normal tone, normal strength, no muscle wasting Psychiatric: A&O x 3, somnolent Hospitalist Results - Labs Result Diagrams: 04/05/20 22:07 04/05/20 22:07 Lab results: WBC 9.2 thou/uL (4.8-10.8) 04/05/20 22:07 Hgb 7.3 g/dL (14.0-18.0) L 04/05/20 22:07 Hct 23.1 % (42.0-52.0) L 04/05/20 22:07 MCV 93.1 fL (78.0-98.0) 04/05/20 22:07 Plt Count 416 thou/uL (130-400) H 04/05/20 22:07 Neutrophils % 89.6 % (42.0-75.0) H 04/05/20 22:07 Sodium 129 mmol/L (136-145) L 04/05/20 22:07 Potassium 5.0 mmol/L (3.5-5.1) 04/05/20 22:07 Chloride 96 mmol/L (98-107) L 04/05/20 22:07 Carbon Dioxide 20 mmol/L (23-31) L 04/05/20 22:07 BUN 57 mg/dL (8.4-25.7) H 04/05/20 22:07 Creatinine 4.59 mg/dL (0.7-1.3) H 04/05/20 22:07 Glucose 106 mg/dL (80-115) 04/05/20 22:07 Lactic Acid 0.9 mmol/L (0.5-2.2) 04/05/20 22:07 Calcium 8.3 mg/dL (7.8-10.44) 04/05/20 22:07 Total Bilirubin 0.3 mg/dL (0.2-1.2) 04/05/20 22:07 AST 41 U/L (5-34) H 04/05/20 22:07 ALT 45 U/L (8-55) 04/05/20 22:07 Alkaline Phosphatase 209 U/L (40-110) H 04/05/20 22:07 CK-MB (CK-2) 1.3 ng/mL (0-6.6) 04/05/20 22:07 Troponin I 0.065 ng/mL (< 0.028) H 04/06/20 01:13 B-Natriuretic Peptide 963.5 pg/mL (0-100) H 04/05/20 22:07 Serum Total Protein 6.9 g/dL (5.8-8.1) 04/05/20 22:07 Albumin 3.4 g/dL (3.4-4.8) 04/05/20 22:07 Lipase Less than 4 U/L (8-78) L 04/05/20 22:07 - Radiology Interpretation Chest x-ray Status: report reviewed by me Hospitalist H&P A/P - Problem (1) Fever Code(s): R50.9 - FEVER, UNSPECIFIED Status: Acute Assessment and Plan: UA/UCx pending. Blood cultures obtained, pending results. Presumed COVID pneumonia due to + COVID test and CXR changes. CT Chest to further assess lung changes seen on CXR. Continue IV antibiotics. Tylenol PRN for Fever. (2) Hypoxia Code(s): R09.02 - HYPOXEMIA Status: Acute Assessment and Plan: Improved on 4L NC. Patient feeling better than when he was in the ED. Continue to monitor O2 sats. Continue antibiotics. CT Chest noncontrast as mentioned above. D-Dimer elevated, known history of DVT. Consider VQ scan to assess for underlying PE. Venous doppler ordered. Patient on chronic anticoagulation. (3) COVID-19 virus detected Code(s): U07.1 - COVID-19 Status: Acute Assessment and Plan: D-dimer, CRP, Ferritin and LDH. Continue steroids. Albuterol inhaler ordered. Monitor O2 sats. (4) Chronic kidney disease, stage IV (severe) Code(s): N18.4 - CHRONIC KIDNEY DISEASE, STAGE 4 (SEVERE) Status: Chronic Assessment and Plan: Renal function essentially stable. Nephrology consult placed. (5) History of DVT (deep vein thrombosis) Code(s): Z86.718 - PERSONAL HISTORY OF OTHER VENOUS THROMBOSIS AND EMBOLISM Status: Chronic Assessment and Plan: Continue anticoagulation (6) Anemia Code(s): D64.9 - ANEMIA, UNSPECIFIED Status: Chronic Assessment and Plan: Chronic and stable. Likely associated with renal disease. Will check stool for occult blood given anticoagulation. Iron studies also ordered. (7) BPH (benign prostatic hyperplasia) Code(s): N40.0 - BENIGN PROSTATIC HYPERPLASIA WITHOUT LOWER URINRY TRACT SYMP Status: Chronic Assessment and Plan: Resume home medications once verified. (8) Type II diabetes mellitus with neurological manifestations Code(s): E11.49 - TYPE 2 DIABETES W H DIABETIC NEUROLOGICAL COMPLICATION Status: Chronic Assessment and Plan: Monitor glucose. Insulin sliding scale initiated. (9) Chronic low back pain Code(s): M54.5 - LOW BACK PAIN; G89.29 - OTHER CHRONIC PAIN Status: Chronic - Plan Plan: GI Prophylaxis with famotidine. Discussed with Dr. Paz who agrees with plan as above.
[2020-04-06] MEDS ORDERED: Dextrose 5% in Water 1,000 ML IV PRN (04:26)
[2020-04-06] MEDS ORDERED: Dextrose 50% Abboject 50 ML SYRINGE SLOW IVP PRN (04:26)
[2020-04-06 05:16] LABS: Troponin I 0.071 ng/mL (< 0.028)
[2020-04-06] MEDS ORDERED: Albuterol Sulfate 2.5 mg/3 ml Neb NEB SCH (06:30)
[2020-04-06 07:13] LABS: CRP (Inflammatory) 2.79 mg/dL (= or < 0.5)
--- NOTE | 2020-04-06 07:30 | ULT ---
EXAM: Bilateral lower extremity venous duplex ultrasound with color and spectral Doppler imaging: HISTORY: History of Covid, elevated d-dimer, recent bilateral knee arthroplasty. Minimal edema. COMPARISON: None FINDINGS: Exam performed from the groin to the ankle including the visualized greater saphenous, common femoral , superficial femoral, profunda femoral, popliteal, trifurcation, and posterior tibial veins. There is phasic flow with normal compressibility and normal augmentation at all examined levels. No evidence for intraluminal thrombus. IMPRESSION: No evidence for deep venous thrombosis.
[2020-04-06 07:34] LABS: Ferritin 216.41 ng/mL (22-322)
[2020-04-06] MEDS: Famotidine 20 MG TAB PO SCH (08:12)
[2020-04-06] MEDS ORDERED: predniSONE 20 MG TAB PO SCH (09:00)
--- NOTE | 2020-04-06 09:48 | CT ---
CT chest noncontrast HISTORY: COVID pneumonia. FINDINGS: Patchy widespread areas of groundglass parenchymal infiltrate are present. More prominent c onsolidation at the dependent portion of each lung. Small amount of bilateral pleural fluid. Calcification within the coronary arteries and other arterial structures. Heart is enlarged. Lack of contrast limits evaluation of the soft tissues. No evidence of mediastinal adenopathy. IMPRESSION : Prominently abnormal findings of bilateral COVID pneumonitis. Consolidation at the dependent portion of the lungs may be related to atelectasis or superimposed bacterial inflammation. Very small bilateral pleural effusions. Atherosclerosis.
[2020-04-06 10:41] VITALS: BMI 22.1
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
[2020-04-06] MEDS: Iron, Sodium Ferric Gluconate 250 MG in Sodium Chloride 0.9% 100 ML IVPB SCH ×2 (11:17→21:44)
[2020-04-06] MEDS: Albuterol 200 PUFF (6.7GM INHALER) INH SCH ×4 (11:18→23:24)
[2020-04-06] MEDS ORDERED: EPOETIN ALFA-EPBX (ESRD) 4,000 UNIT/ML VIAL SC SCH (12:00)
[2020-04-06] MEDS: HumaLOG 300 UNITS/3 ML VIAL SC PRN ×3 (12:21→21:46)
--- NOTE | 2020-04-06 17:16 | EKG ---
Test Reason : Blood Pressure : / mmHG Vent. Rate : 105 BPM Atrial Rate : 000 BPM P-R Int : 000 ms QRS Dur : 060 ms QT Int : 298 ms P-R-T Axes : 000 033 010 degrees QTc Int : 393 ms Atrial fibrillation with rapid ventricular response Nonspecific ST abnormality , probably digitalis effect Abnormal ECG Confirmed by RAEGAN CANO DO ([id number]), web editor JEREMIAH MASTERSON ([id number]) on 04/06/2020 5:15:53 PM Referred By: Confirmed By:RAEGAN CANO DO
--- NOTE | 2020-04-06 17:45 | PDOC.BPN ---
- Brief Progress Note Encounter Date: 04/06/20 Patient was seen and examined in bed. He was admitted overnight on account of acute hypoxic respiratory failure in the setting of Covid pneumonia. Also has CKD and has been reviewed by nephrologyno intervention Is generally stable so far on high flow oxygen. Start anticoagulation Continue steroids Continue oxygen therapy Continue antibiotics till blood cultures result. Covid was diagnosed about a week ago transfer out of [facility].
[2020-04-06 20:03] LABS: Anion Gap 22 mmol/L (10-20); BUN (Urea Nitrogen) 67 mg/dL (8.4-25.7); Calc. Creatinine Clearance 15 mL/min (70-130); Calcium 7.7 mg/dL (7.8-10.44); Carbon Dioxide 16 mmol/L (23-31); Chloride 98 mmol/L (98-107); Estimated GFR-MDRD 13; Glucose 393 mg/dL (80-115); Potassium 4.6 mmol/L (3.5-5.1); Sodium 131 mmol/L (136-145)
[2020-04-06] MEDS: Dexamethasone 4 mg/ml Vial SLOW IVP SCH (21:42)
[2020-04-06] MEDS: Heparin 5,000 UNITS/ML VIAL SC SCH (21:43)
[2020-04-06] MEDS: cefTRIAXone\\ROCEPHIN 1 GM in Sodium Chloride 0.9% 100 ML IVPB SCH (21:45)
[2020-04-06] MEDS ORDERED: Dexamethasone 4 mg/ml Vial SLOW IVP SCH (21:45)
[2020-04-07] MEDS: Azithromycin 500 MG in Sodium Chloride 0.9% 250 ML 250 ML IVPB SCH (00:10)
[2020-04-07] MEDS: Albuterol 200 PUFF (6.7GM INHALER) INH SCH ×5 (03:12→17:22)
[2020-04-07] MEDS: HumaLOG 300 UNITS/3 ML VIAL SC PRN ×4 (06:15→21:46)
[2020-04-07] MEDS ORDERED: Dextrose 5% in Water 1,000 ML IV PRN (07:25)
[2020-04-07] MEDS ORDERED: Dextrose 50% Abboject 50 ML SYRINGE SLOW IVP PRN (07:25)
[2020-04-07] MEDS: Insulin Glargine 5 UNITS in Pre-Filled Syringe 1 EACH SC SCH (09:00)
[2020-04-07] MEDS ORDERED: FLU VACC QS2020-21(65YR UP)/PF 240 MCG/0.7 ML SYRINGE IM ONE (09:00)
[2020-04-07] MEDS: Heparin 5,000 UNITS/ML VIAL SC SCH ×3 (09:03→20:45)
[2020-04-07] MEDS: Famotidine 20 MG TAB PO SCH (09:03)
[2020-04-07] MEDS: Dexamethasone 4 mg/ml Vial SLOW IVP SCH (09:08)
[2020-04-07 11:36] LABS: #Eosinphils 0.1 thou/uL (0.0-0.7); #Lymphocytes 0.8 thou/uL (1.20-3.40); #Monocytes 0.6 thou/uL (0.11-0.59); #Neutrophils 13.2 thou/uL (1.40-6.50); %Basophils 0.2 % (0.0-1.0); %Eosinophils 0.4 % (0.0-10.0); %Lymphocytes 5.6 % (21.0-51.0); %Monocytes 4.3 % (0.0-10.0); %Neutrophils 89.5 % (42.0-75.0); Hemoglobin 8.4 g/dL (14.0-18.0); Mean Corpuscular HGB CONC 31.6 g/dL (32.0-36.0); Mean Corpuscular Hemoglobin 29.6 pg (27.0-31.0); Mean Corpuscular Volume 93.6 fL (78.0-98.0); Mean Platelet Volume 7.8 fL (7.4-10.4); Platelet Count 427 thou/uL (130-400); RBC Distribution Width 16.6 % (11.5-14.5); Red Blood Cell (RBC) Count 2.82 mill/uL (4.70-6.10); White Blood Cell (WBC) Count 14.7 thou/uL (4.8-10.8)
[2020-04-07 11:53] LABS: Anion Gap 21 mmol/L (10-20); BUN (Urea Nitrogen) 73 mg/dL (8.4-25.7); Calc. Creatinine Clearance 16 mL/min (70-130); Calcium 7.4 mg/dL (7.8-10.44); Carbon Dioxide 16 mmol/L (23-31); Chloride 98 mmol/L (98-107); Estimated GFR-MDRD 14; Glucose 285 mg/dL (80-115); Potassium 4.6 mmol/L (3.5-5.1); Sodium 130 mmol/L (136-145)
--- NOTE | 2020-04-07 16:21 | PDOC.HOSPP ---
- Subjective Encounter Date: 04/07/20 Encounter Time: 09:00 Subjective: Patient was seen and examined in bed. He had a generally good night. Denied any chest pain or shortness of breath. Even on high flow however saturation close to 100. - Objective Vital Signs & Weight: Vital Signs (12 hours) Temp Pulse Pulse Resp BP BP BP 04/07/20 12:46 04/07/20 11:47 97.8 F 78 16 177/86 H 04/07/20 11:25 77 158/76 H 04/07/20 08:00 98.4 F 80 20 160/79 H 04/07/20 06:10 98.1 F 18 158/76 H 04/07/20 05:48 Pulse Ox Pulse Ox 04/07/20 12:46 98 04/07/20 11:47 100 04/07/20 11:25 100 04/07/20 08:00 100 04/07/20 06:10 100 04/07/20 05:48 93 L Weight Weight 150 lb 2 oz I&O: 04/06/20 04/07/20 04/08/20 06:59 06:59 06:59 Intake Total 1200 1890 Output Total 3525 2600 Balance -5044 -142 Result Diagrams: 04/07/20 11:17 04/07/20 11:17 Additional Labs: Accuchecks 04/07/20 04/07/20 04/06/20 11:45 05:16 20:56 POC Glucose 298 H 310 H 399 H 04/06/20 17:28 POC Glucose 364 H Hospitalist ROS - Medication Medications: Active Medications Generic Name Dose Route Start Last Admin Trade Name Dylonq PRN Reason Stop Dose Admin Albuterol Sulfate 2 puff 04/06/20 10:30 04/07/20 13:33 Albuterol 200 Puff (6.7gm Inhaler) INH 2 inh [id number] GADIEL Administration Dexamethasone 8 mg 04/06/20 21:00 04/07/20 09:08 Dexamethasone 4 Mg/Ml Vial SLOW IVP 8 mg DAILY GADIEL Administration Epoetin Lars-epbx 7,500 unit 04/06/20 12:00 04/06/20 11:18 Epoetin Lars-Epbx (Esrd) 4,000 Unit/Ml Vial SC 7,500 unit Q7D GADIEL Administration Famotidine 20 mg 04/06/20 09:00 04/07/20 09:03 Famotidine 20 Mg Tab PO 20 mg DAILY GADIEL Administration Heparin Sodium (Porcine) 5,000 units 04/06/20 21:00 04/07/20 15:48 Heparin 5,000 Units/Ml Vial SC 5,000 units TID GADIEL Administration Azithromycin 500 mg/ Sodium 250 mls @ 250 mls/hr 04/07/20 01:00 04/07/20 00:10 Chloride IVPB 250 mls Q24HR GADIEL Administration Ceftriaxone Sodium 1 gm/ 100 mls @ 200 mls/hr 04/06/20 23:00 04/06/20 21:45 Sodium Chloride IVPB 100 mls Q24HR GADIEL Administration Insulin Glargine 5 units/ 0.05 mls @ 0 mls/hr 04/07/20 09:00 04/07/20 09:00 Miscellaneous Medication SC 0.05 mls QAM GADIEL Administration Insulin Human Lispro 0 units 04/06/20 04:26 04/06/20 21:46 Humalog 300 Units/3 Ml Vial SC 5 unit .BEDTIME SLIDING SC PRN Administration Bedtime Correctional Scale Insulin Human Lispro 0 units 04/06/20 22:30 04/07/20 13:22 Humalog 300 Units/3 Ml Vial SC 9 unit .AGGRESSIVE SLIDING PRN Administration AGGRESSIVE SLIDING SCALE Protocol Sodium Chloride 10 ml 04/06/20 03:43 04/07/20 09:03 Flush - Normal Saline 10 Ml Syringe IVF 10 ml Q12HR PRN Administration Saline Flush - Exam General Appearance: awake alert Heart: RRR, no murmur, no rubs, normal peripheral pulses Respiratory: no wheezes, no rales, no ronchi, no tachypnea Gastrointestinal: soft, non-tender, non-distended, normal bowel sounds Extremities: no cyanosis, no clubbing, no edema Extremities - other findings: BKA on right. Neurological: cranial nerve grossly intact, no focal deficits Psychiatric: normal affect, normal behavior, A&O x 3 Hosp A/P - Plan This is a 69-year-old male patient who had a recent right BKA, was discharged to rehab and contracted Covid and has been readmitted on account of acute hypoxic respiratory failure. Patient is generally stable and being weaned off oxygen with movement. Acute hypoxic respiratory failure In the setting of Covid On dexamethasone and heparin SC 3 times daily Seems to be doing quite well. Weaned off high flow to 3 L nasal cannula today. Continue weaning down on oxygen. Monitor closely for 1 more day and possible discharge Pneumonia due to Covid Manage as above. CKD stage IV Renal function stable Nephrology following History of DVT Normocytic anemia Likely combination CKD/AP Hemoglobin improved from 7.3-7.4. Iron 10, TIBC 173, saturation 6. Ferritin 216. Received Ferrlecitcontinue on iron tablets Also on epoetin We will continue hemoglobin monitoring BPH Continue tamsulosin Had recent retention with indwelling catheter placed a week ago. Indwelling Olivera catheter Remove catheter and a trial of micturition Restart tamsulosin Urology consult in a.m. if he retains again. S/p right BKA Wound clean Continue monitoring We will continue with rehab was discharged CODE STATUSfull code VTE prophylaxis Lovenox
[2020-04-07] MEDS: Tamsulosin HCl 0.4 MG CAP PO SCH (20:45)
[2020-04-07 21:20] LABS: Carbon Dioxide 19 mmol/L (23-31); Magnesium 1.7 mg/dL (1.6-2.6)
[2020-04-07 21:46] LABS: Chloride 94 mmol/L (98-107); Sodium 128 mmol/L (136-145)
[2020-04-07] MEDS: cefTRIAXone\\ROCEPHIN 1 GM in Sodium Chloride 0.9% 100 ML IVPB SCH (21:47)
[2020-04-07 21:49] LABS: Anion Gap 19 mmol/L (10-20)
[2020-04-08] MEDS: Albuterol 200 PUFF (6.7GM INHALER) INH SCH ×7 (00:57→22:38)
[2020-04-08] MEDS: Azithromycin 500 MG in Sodium Chloride 0.9% 250 ML 250 ML IVPB SCH (00:57)
[2020-04-08 05:15] LABS: #Eosinphils 0.1 thou/uL (0.0-0.7); #Lymphocytes 1.4 thou/uL (1.20-3.40); #Monocytes 0.7 thou/uL (0.11-0.59); #Neutrophils 13.8 thou/uL (1.40-6.50); %Eosinophils 0.6 % (0.0-10.0); %Lymphocytes 8.6 % (21.0-51.0); %Monocytes 4.2 % (0.0-10.0); %Neutrophils 86.6 % (42.0-75.0); Hemoglobin 7.5 g/dL (14.0-18.0); Mean Corpuscular HGB CONC 31.9 g/dL (32.0-36.0); Mean Corpuscular Hemoglobin 29.4 pg (27.0-31.0); Mean Corpuscular Volume 92.3 fL (78.0-98.0); Mean Platelet Volume 7.5 fL (7.4-10.4); Platelet Count 454 thou/uL (130-400); RBC Distribution Width 16.3 % (11.5-14.5); Red Blood Cell (RBC) Count 2.55 mill/uL (4.70-6.10); White Blood Cell (WBC) Count 15.9 thou/uL (4.8-10.8)
[2020-04-08 05:39] LABS: Anion Gap 18 mmol/L (10-20); BUN (Urea Nitrogen) 69 mg/dL (8.4-25.7); CRP (Inflammatory) 2.69 mg/dL (= or < 0.5); Calc. Creatinine Clearance 17 mL/min (70-130); Calcium 7.1 mg/dL (7.8-10.44); Carbon Dioxide 21 mmol/L (23-31); Chloride 97 mmol/L (98-107); Estimated GFR-MDRD 14; Glucose 268 mg/dL (80-115); Potassium 3.6 mmol/L (3.5-5.1); Sodium 132 mmol/L (136-145)
[2020-04-08] MEDS: HumaLOG 300 UNITS/3 ML VIAL SC PRN ×3 (06:40→17:31)
[2020-04-08] MEDS: Ferrous Sulfate 325 MG TAB PO SCH (08:23)
[2020-04-08] MEDS: Dexamethasone 4 mg/ml Vial SLOW IVP SCH (08:24)
[2020-04-08] MEDS: Famotidine 20 MG TAB PO SCH (08:24)
[2020-04-08] MEDS: Enoxaparin Sodium 30 MG/0.3 ML SYRINGE SC SCH ×2 (08:24→20:57)
[2020-04-08] MEDS: Sodium Bicarbonate Tab 325 MG TAB PO SCH ×3 (08:26→21:00)
[2020-04-08] MEDS ORDERED: Gabapentin 300 MG CAP PO SCH (09:00)
[2020-04-08] MEDS ORDERED: Non-Formulary Item 1 EACH (Omeprazole [Omeprazole] 40 MG Capsule.Dr) PO SCH (09:00)
[2020-04-08] MEDS ORDERED: Non-Formulary Item 1 EACH (Sodium Bicarbonate [Sodium Bicarbonate] 650 MG Tablet) PO SCH (09:00)
--- NOTE | 2020-04-08 10:34 | PDOC.DS.DS ---
Provider - Provider Date of Admission: 04/06/20 00:42 Admitting Provider: Ayaka Mallory MD Primary Care Physician: Elissa Azul DO Course - Labs Lab Results: 04/08/20 04:43 04/08/20 04:43 Abnormal Lab Results - Last 48 hrs 04/06/20 19:23: Sodium 131 L, Carbon Dioxide 16 L, Anion Gap 22 H, BUN 67 H, Creatinine 4.69 H, Calcium 7.7 L 04/07/20 11:17: C-Reactive Protein 3.87 H 04/07/20 11:17: Sodium 130 L, Carbon Dioxide 16 L, Anion Gap 21 H, BUN 73 H, Creatinine 4.38 H, Calcium 7.4 L 04/07/20 11:17: WBC 14.7 H, RBC 2.82 L, Hgb 8.4 L, Hct 26.4 L, MCHC 31.6 L, RDW 16.6 H, Plt Count 427 H, Neutrophils % 89.5 H, Lymphocytes % 5.6 L, Neutrophils # 13.2 H, Lymphocytes # 0.8 L, Monocytes # 0.6 H 04/07/20 20:39: Sodium 128 L, Chloride 94 L, Carbon Dioxide 19 L 04/08/20 04:43: Sodium 132 L, Chloride 97 L, Carbon Dioxide 21 L, BUN 69 H, Creatinine 4.14 H, Calcium 7.1 L, C-Reactive Protein 2.69 H 04/08/20 04:43: WBC 15.9 H, RBC 2.55 L, Hgb 7.5 L, Hct 23.6 L, MCHC 31.9 L, RDW 16.3 H, Plt Count 454 H, Neutrophils % 86.6 H, Lymphocytes % 8.6 L, Neutrophils # 13.8 H, Monocytes # 0.7 H Microbiology - Entire Visit 04/05/20 22:07 Venous blood - Right Hand Blood Culture - Preliminary NO GROWTH AT 48 HOURS 04/05/20 22:07 Venous blood - Right Arm Blood Culture - Preliminary NO GROWTH AT 48 HOURS 04/06/20 11:55 Stool Stool Occult Blood (HAKAN) - Final - Physical Exam Vitals: Vital Signs (12 hours) Temp Pulse Resp BP Pulse Ox 04/08/20 08:46 99.3 F 89 18 163/90 H 97 04/08/20 05:40 100 04/08/20 04:00 98.6 F 83 10 L 176/83 H 100 04/08/20 00:00 98.6 F 80 24 H 177/82 H 100 Weight Weight 150 lb 2 oz Physical Exam: The patient was seen and examined on the day of discharge. Problem - Discharge Plan Assessment: Follow up on anticoagulation with apixiaban Plan - Discharge Medications Home Medications: Medication Instructions Recorded Confirmed Type Insulin Lispro [HumaLOG KwikPen] 0 unit SC AC PRN 11/10/13 04/06/20 History Sodium Bicarbonate 650 mg PO TID 10/21/16 04/06/20 History NPH, Human Insulin Isophane 5 unit SC BID #1 vial 03/26/20 Rx [HumuLIN N] Clotrimazole 1% Cream [Lotrimin 1% 1 applic TOP BID 04/06/20 04/06/20 History Cream] Gabapentin [Neurontin] 300 mg PO Q2DAYS 04/06/20 04/06/20 History Omeprazole 40 mg PO DAILY 04/06/20 04/06/20 History Restasis [Restasis Ophth Drops] 1 drop EA EYE BID 04/06/20 04/06/20 History Tamsulosin HCl [Flomax] 0.4 mg PO HS 04/06/20 04/06/20 History Allergies: sulfamethoxazole [From Bactrim] Allergy (Verified 04/06/20 10:28) PER ER REPORT trimethoprim [From Bactrim] Allergy (Verified 04/06/20 10:28) - Follow up Plan Referrals: Elissa Azul DO [Primary Care Provider] - 10 Days Alexandre Rodrigues MD [Active] - 2-3 Weeks Sveta Beltre MD [Active] - Disposition: HOME
[2020-04-08] MEDS: Insulin Glargine 5 UNITS in Pre-Filled Syringe 1 EACH SC SCH (11:01)
[2020-04-08] MEDS: cycloSPORINE 0.05% Ophthalmic Droperette EA EYE SCH ×2 (11:02→20:58)
--- NOTE | 2020-04-08 19:15 | CON ---
DATE OF CONSULTATION: 04/08/2020 REASON FOR CONSULTATION: COVID pneumonia. HISTORY OF PRESENT ILLNESS: Mr. Moore was initially admitted on March 21 with a history of type 2 diabetes and right transmetatarsal amputation, and CKD, presented with right foot pain with gangrene, so he had an emergency below-knee amputation and he had CKD with acute kidney failure superimposed. Creatinine peaked at 4.65 in the lowest at discharge was 3.79 and he had a negative SARS-CoV-2 test on 03/21. He was transferred to rehab and readmitted to the hospital on 04/06 because of desaturation while at the [place]. He was placed on 15 L nonrebreathing and saturations of 90%. Also had a fever, is a little bit tachycardic. He tested positive COVID at that same day. So, his progress since admission was quite positive actually. He was saturating at 84 and is up to 97 to 98 now and he started at a high-flow nasal cannula, he is down to room air now. He has been treated with ceftriaxone, azithromycin, and dexamethasone. Did not get remdesivir, he is not eligible for it because of his renal failure. Anyways, he now wants to go home. His room air O2 saturating at 98 and 97. Denies any headaches. A little bit of cough, but not as much. No chest pain. No abdominal pain or diarrhea. No genitourinary symptoms. He is voiding in the urinal spontaneously. There are no appendicular structure symptoms. His amputation site is not painful. A little areas of nonpalpable purpura in the extremities and a low pressure area in the presacral region. PAST MEDICAL HISTORY: Includes type 2 diabetes, CKD stage 4, BPH, pancreatitis, coronary artery disease, cardiac stent, hernia repair, ankle surgery, transmetatarsal amputation right foot, and then right BKA recently. SOCIAL HISTORY: Former smoker. No alcoholic beverage use. FAMILY HISTORY: Noncontributory. ALLERGIES: BACTRIM WITH SKIN RASH. MEDICATIONS: His medications have been reviewed above. PHYSICAL EXAMINATION: VITAL SIGNS: Showed normal temperature, BP 140/73, heart rate 82, respiratory rate 18 to 20, and O2 saturation 98. SKIN: With the areas of pressure injury, mild, presacral region. Amputation site of the BKA appears okay. Peripheral IV access. No lymphadenopathy. HEENT: Ocular movements conjugate. Oral cavity with quite a few missing teeth. Oral mucosa normal. NECK: Supple. LUNGS: Symmetric air entry. Very faint crackles in the right base. No wheezing. HEART: S1 and S2. Regular rate. No S3 or S4. ABDOMEN: Soft, not distended or tender. No ascites. No bladder distention. EXTREMITIES: No joint inflammatory activity outside the involved area. The amputation site appears okay. NEURO: Nonfocal. LABORATORY DATA: White cell count is up to 15.9 probably with Decadron effect. Hemoglobin 7.5 and platelets 454. D-dimer 3.83. Sodium 132 and creatinine 4.14. The ferritin 216 on April 06 and CRP went up to 3.87 down to 2.[address] showed diffuse ground-glass opacities, typical of COVID pneumonia as one with air atelectasis or early subsegmental consolidation as well. ASSESSMENT AND PLAN: Diabetes type 2, chronic kidney disease stage 4, coronary artery disease, PVD gangrene right lower extremity with the BKA recently, COVID infection not clear where it was acquired or the patient already had when he came in for the amputation or if he acquired after admission due to the sometimes prolonged nature of the intubation. So it is hard to precisely estimate the duration of illness at this point in time. We will recommend discharge planning. We will go and submit antibody titer to see if he has antibody production already against COVID. In view of his ferritin and CRP and in fact, he has responded so quickly to treatment, I think he is going to have a good prognosis. There is a risk of recrudescence of infection, but he should be discharged on Decadron to complete a total of 10 days treatment. Job ID: [id number]
--- NOTE | 2020-04-08 19:45 | PDOC.HOSPP ---
- Subjective Encounter Date: 04/08/20 Subjective: He was seen and examined in bed. He is being weaned off oxygen and has been on room air comfortably. He has occasional cough. Denies any chest pain or shortness of breath. He would want to go home today. - Objective Vital Signs & Weight: Vital Signs (12 hours) Temp Pulse Pulse Resp BP BP Pulse Ox 04/08/20 15:59 98.7 F 82 20 148/73 H 98 04/08/20 14:10 83 133/68 04/08/20 12:20 97 04/08/20 12:00 98.4 F 84 18 154/78 H 97 04/08/20 08:46 99.3 F 89 18 163/90 H 97 Weight Admit Weight 150 lb 2 oz Weight 150 lb 2 oz I&O: 04/07/20 04/08/20 04/09/20 06:59 06:59 06:59 Intake Total 1200 3000 720 Output Total 3525 6000 1700 Balance -2325 -3000 -980 Result Diagrams: 04/09/20 14:30 04/09/20 04:42 Additional Labs: Accuchecks 04/08/20 04/08/20 04/07/20 16:53 11:16 21:08 POC Glucose 157 H 192 H 243 H 04/06/20 11:30 POC Glucose 312 H Hospitalist ROS - Medication Medications: Active Medications Generic Name Dose Route Start Last Admin Trade Name Freq PRN Reason Stop Dose Admin Albuterol Sulfate 2 puff 04/06/20 10:30 04/08/20 18:38 Albuterol 200 Puff (6.7gm Inhaler) INH 2 inh [id number] GADIEL Administration Cyclosporine 0 ml 04/08/20 09:00 04/08/20 11:02 Cyclosporine 0.05% Ophthalmic Droperette EA EYE 0.4 ml BID GADIEL Administration Dexamethasone 8 mg 04/06/20 21:00 04/08/20 08:24 Dexamethasone 4 Mg/Ml Vial SLOW IVP 8 mg DAILY GADIEL Administration Enoxaparin Sodium 30 mg 04/08/20 09:00 04/08/20 08:24 Enoxaparin Sodium 30 Mg/0.3 Ml Syringe SC 30 mg 0900,2100 GADIEL Administration Epoetin Lars-epbx 7,500 unit 04/06/20 12:00 04/06/20 11:18 Epoetin Lars-Epbx (Esrd) 4,000 Unit/Ml Vial SC 7,500 unit Q7D GADIEL Administration Famotidine 20 mg 04/06/20 09:00 04/08/20 08:24 Famotidine 20 Mg Tab PO 20 mg DAILY GADIEL Administration Ferrous Sulfate 325 mg 04/08/20 08:00 04/08/20 08:23 Ferrous Sulfate 325 Mg Tab PO 325 mg QAM-WM GADIEL Administration Gabapentin 300 mg 04/08/20 09:00 04/08/20 08:25 Gabapentin 300 Mg Cap PO 300 mg Q2DAYS GADIEL Administration Azithromycin 500 mg/ Sodium 250 mls @ 250 mls/hr 04/07/20 01:00 04/08/20 00:57 Chloride IVPB 250 mls Q24HR GADIEL Administration Ceftriaxone Sodium 1 gm/ 100 mls @ 200 mls/hr 04/06/20 23:00 04/07/20 21:47 Sodium Chloride IVPB 100 mls Q24HR GADIEL Administration Insulin Glargine 5 units/ 0.05 mls @ 0 mls/hr 04/07/20 09:00 04/08/20 11:01 Miscellaneous Medication SC 0.05 mls QAM GADIEL Administration Insulin Human Lispro 0 units 04/06/20 04:26 04/07/20 21:46 Humalog 300 Units/3 Ml Vial SC 2 unit .BEDTIME SLIDING SC PRN Administration Bedtime Correctional Scale Insulin Human Lispro 0 units 04/06/20 22:30 04/08/20 17:31 Humalog 300 Units/3 Ml Vial SC 3 unit .AGGRESSIVE SLIDING PRN Administration AGGRESSIVE SLIDING SCALE Protocol Pantoprazole Sodium 40 mg 04/08/20 09:00 04/08/20 08:26 Pantoprazole 40 Mg Tab PO 40 mg DAILY GADIEL Administration Sodium Bicarbonate 650 mg 04/08/20 09:00 04/08/20 15:43 Sodium Bicarbonate Tab 325 Mg Tab PO 650 mg TID GADIEL Administration Sodium Chloride 10 ml 04/06/20 03:43 04/08/20 08:27 Flush - Normal Saline 10 Ml Syringe IVF 10 ml Q12HR PRN Administration Saline Flush Tamsulosin HCl 0.4 mg 04/07/20 21:00 04/07/20 20:45 Tamsulosin Hcl 0.4 Mg Cap PO 0.4 mg HS GADIEL Administration - Exam General Appearance: awake alert Heart: RRR, no murmur, no gallops Respiratory - other findings: Reduced air entry bilaterally. Gastrointestinal: soft, non-tender, non-distended, normal bowel sounds Extremities: no cyanosis, no clubbing Extremities - other findings: BKA on right Neurological: cranial nerve grossly intact Hosp A/P - Plan This is a 69-year-old male patient who had a recent right BKA, was discharged to rehab and contracted Covid and has been readmitted on account of acute hypoxic respiratory failure. Patient is generally stable and being weaned off oxygen with movement. He is currently tolerating room air quite comfortably. Plan is to discharge tomorrow to complete a 10-day course of Decadron Acute hypoxic respiratory failure In the setting of Covid On dexamethasone We will continue ID consult Pneumonia due to Covid Manage as above. CKD stage IV Renal function stable Nephrology following Normocytic anemia Likely combination CKD/AP Hemoglobin improved from 7.3-7.4. Iron 10, TIBC 173, saturation 6. Ferritin 216. Received Ferrlecitcontinue on iron tablets Also on epoetin We will continue hemoglobin monitoring BPH Continue tamsulosin Had recent retention with indwelling catheter placed a week ago. Indwelling Olivera catheter Remove catheter and a trial of micturition Restart tamsulosin Urology consult in a.m. if he retains again. S/p right BKA Wound clean Continue monitoring We will continue with rehab was discharged Recent DVT Continue anticoagulation on apixaban on discharge of 2.5 mg twice daily Discussed with nephrology CODE STATUSfull code VTE prophylaxis Lovenox
[2020-04-08 20:27] LABS: SARS-CoV-2 IgG Ab Non-Reactive (NonReactive); SARS-CoV-2 IgG Index 0.09 S/CO (< 1.40)
[2020-04-08] MEDS: Tamsulosin HCl 0.4 MG CAP PO SCH (21:01)
[2020-04-08] MEDS: cefTRIAXone\\ROCEPHIN 1 GM in Sodium Chloride 0.9% 100 ML IVPB SCH (22:38)
[2020-04-09] MEDS: Azithromycin 500 MG in Sodium Chloride 0.9% 250 ML 250 ML IVPB SCH (01:40)
[2020-04-09] MEDS: Albuterol 200 PUFF (6.7GM INHALER) INH SCH ×5 (01:40→19:16)
[2020-04-09 05:33] LABS: Anion Gap 18 mmol/L (10-20); BUN (Urea Nitrogen) 60 mg/dL (8.4-25.7); Calc. Creatinine Clearance 17 mL/min (70-130); Calcium 6.9 mg/dL (7.8-10.44); Carbon Dioxide 21 mmol/L (23-31); Chloride 98 mmol/L (98-107); Estimated GFR-MDRD 14; Glucose 337 mg/dL (80-115); Potassium 3.5 mmol/L (3.5-5.1); Sodium 133 mmol/L (136-145)
[2020-04-09 06:13] LABS: Band 27 % (5-11); Hemoglobin 7.1 g/dL (14.0-18.0); Lymphocytes 16 % (21-51); MDiff Complete? YES; Mean Corpuscular Hemoglobin 29.2 pg (27.0-31.0); Mean Corpuscular Volume 91.3 fL (78.0-98.0); Mean Platelet Volume 7.6 fL (7.4-10.4); Monocytes 2 % (0-10); Myelocyte 1 % (0-0); Neutrophil 54 % (42-75); Platelet Count 413 thou/uL (130-400); RBC Distribution Width 16.7 % (11.5-14.5); Red Blood Cell (RBC) Count 2.42 mill/uL (4.70-6.10); White Blood Cell (WBC) Count 13.2 thou/uL (4.8-10.8)
[2020-04-09] MEDS: HumaLOG 300 UNITS/3 ML VIAL SC PRN (06:37)
--- NOTE | 2020-04-09 08:27 | PRG ---
DATE OF SERVICE: 04/09/2020 SUBJECTIVE: Mr. Moore is a 69-year-old white male, who was admitted for COVID-19 pneumonia. We are following him up for his chronic renal failure from diabetic nephropathy. He has been offered dialysis in the past and has declined it. He also was recently admitted for right foot wet gangrene and underwent right BKA. We are following him up for his chronic renal dysfunction. No new complaints today. No chest pain or shortness of breath. OBJECTIVE: VITAL SIGNS: Blood pressure 162/77, heart rate 92, respiratory rate 19, temperature 98.2, O2 saturation 96% on room air. GENERAL: The patient is awake, comfortable, not in overt distress. SKIN: Adequate turgor. HEENT: Pale conjunctivae. Anicteric sclerae. No neck mass. No carotid bruits. No JVD. LUNGS: Decreased breath sounds. HEART: Normal sinus rhythm. No murmurs, no gallops, no rubs. ABDOMEN: Globular, soft, nontender. No masses. EXTREMITIES: No edema. Status post right BKA. MEDICATIONS: Medications of April 09, 2020, was reviewed. LABORATORY DATA: Laboratories of April 09, 2020; white count 13.2, hemoglobin 7.1, hematocrit 22.1. Sodium 133, potassium 3.5, chloride 98, carbon dioxide 21, BUN 60, creatinine 4.16, glucose 337, calcium 6.9. ASSESSMENT AND PLAN: 1. COVID-19 pneumonia. Continue supportive care on steroids and antibiotics. 2. Chronic renal failure from diabetic nephropathy, stable creatinine at a value of 4.16. GFR is 14 mL/minute. The patient has been offered to initiate dialysis, but has declined. 3. Anemia. Continuing weekly Epogen and iron supplementation. We will transfuse 1 unit of packed RBC. We are awaiting placement for long-term facility in [place]. Recheck basic metabolic profile and CBC in a.m. Job ID: [id number]
[2020-04-09] MEDS: Ferrous Sulfate 325 MG TAB PO SCH (08:37)
[2020-04-09] MEDS: Famotidine 20 MG TAB PO SCH (08:37)
[2020-04-09] MEDS: Dexamethasone 4 mg/ml Vial SLOW IVP SCH (08:37)
[2020-04-09] MEDS: Sodium Bicarbonate Tab 325 MG TAB PO SCH ×2 (08:37→16:18)
[2020-04-09] MEDS: Enoxaparin Sodium 30 MG/0.3 ML SYRINGE SC SCH (08:37)
[2020-04-09] MEDS: Insulin Glargine 5 UNITS in Pre-Filled Syringe 1 EACH SC SCH (08:38)
[2020-04-09] MEDS ORDERED: Pantoprazole 40 MG VIAL IVP SCH (09:00)
[2020-04-09] MEDS ORDERED: Magnesium 2 GM/50 ML 2 GM in Premix Bag 1 BAG IVPB SCH (09:00)
[2020-04-09] MEDS: cycloSPORINE 0.05% Ophthalmic Droperette EA EYE SCH (12:44)
[2020-04-09 14:44] LABS: Hemoglobin 8.6 g/dL (14.0-18.0); Mean Corpuscular HGB CONC 31.7 g/dL (32.0-36.0); Mean Corpuscular Volume 91.3 fL (78.0-98.0); Mean Platelet Volume 7.5 fL (7.4-10.4); Platelet Count 421 thou/uL (130-400); RBC Distribution Width 16.6 % (11.5-14.5); Red Blood Cell (RBC) Count 2.96 mill/uL (4.70-6.10); White Blood Cell (WBC) Count 12.7 thou/uL (4.8-10.8)
[2020-04-09 15:08] LABS: Anisocytosis SLIGHT = 6-15 cells (100X) (0-5/hpf); Band 43 % (5-11); Hypochromia SLIGHT = 6-15 cells (100X) (0-5/hpf); Lymphocytes 1 % (21-51); MDiff Complete? YES; Monocytes 1 % (0-10); Neutrophil 53 % (42-75); Platelet Morphology Comment Appears Increased; Polychromasia SLIGHT = 2-3 cells (100X) (0-2/hpf); Reactive Lymphocytes 2 % (0-10)
--- NOTE | 2020-04-09 17:43 | PRG ---
DATE OF SERVICE: 04/09/2020 SUBJECTIVE: Mr. Moore is feeling better. He just wants to leave, he is making arrangements with his daughter. It looks like he is willing to sign against medical advice. He is actually feeling pretty good. He is saturating 100% on room air. No chest pain. No cough. No abdominal pain or diarrhea. OBJECTIVE: VITAL SIGNS: His T-max is 99.2, heart rate 81, and O2 saturation 100. LUNGS: Symmetric air entry, a few crackles at the bases. HEART: S1, S2. Regular rate without murmurs. ABDOMEN: Soft, not distended or tender. Amputation site with a good appearance. LABORATORY DATA: White cell count is down to 12.7, hemoglobin 8.6, and platelets 421. For some reason, he has got 43% bands. Creatinine 4.16. CURRENT MEDICATIONS: Include: 1. Azithromycin. 2. Rocephin. 3. Decadron. ASSESSMENT AND DISCUSSION: Type 2 diabetes; chronic kidney disease, stage 4, not on dialysis; coronary artery disease; peripheral vascular disease, gangrene of right lower extremity with [id number] amputation recently; and COVID infection of recent acquisition, it is fairly mild course thus far. In my opinion, he probably is stable for discharge, is going to leave against medical advice. Anyway, I do not think we believe that this is relatively safe and he does have help at home his daughter lives within 5 minutes and he has food and mobility equipment in the home setting, able to perform his activities of daily living. So, I would go ahead and discharge him to finish off his course of Decadron. Regarding the bandemia, it is not easy to explain it right now, but he does not have any obvious evidence of infectious process or inflammatory process other than the COVID itself it may be a response to the viral infection itself, I have seen this sort of peripheral blood WBC phenomenon in other Covid patients without associated bacterial or fungal infection. Job ID: [id number] [facility]
[2020-04-09 17:47] VITALS: BP 183/85; TEMP 98.4
--- NOTE | 2020-04-09 20:47 | PDOC.HOSPP ---
- Subjective Encounter Date: 04/09/20 - Objective Vital Signs & Weight: Vital Signs (12 hours) Temp Pulse Pulse Pulse Resp BP BP 04/09/20 16:25 98.4 F 80 17 04/09/20 15:00 81 167/80 H 04/09/20 14:05 99.2 F 82 19 152/76 H 04/09/20 10:40 99.2 F 81 20 158/77 H 04/09/20 10:25 99.2 F 85 16 168/79 H BP Pulse Ox Pulse Ox 04/09/20 16:25 183/85 H 94 L 04/09/20 15:00 90 L 04/09/20 14:05 100 04/09/20 10:40 95 04/09/20 10:25 94 L Weight Admit Weight 150 lb 2 oz Weight 150 lb 2 oz I&O: 04/08/20 04/09/20 04/10/20 06:59 06:59 06:59 Intake Total 3000 1200 350 Output Total 6000 2350 Balance -3000 -1150 350 Result Diagrams: 04/09/20 14:30 04/09/20 04:42 Additional Labs: Accuchecks 04/09/20 04/09/20 16:49 10:44 POC Glucose 252 H 128 H - Exam General Appearance: awake alert Heart: RRR, no murmur, no gallops, no rubs Respiratory - other findings: Bilateral crackles. Extremities: no cyanosis, no clubbing, no edema Extremities - other findings: BKA on right. Stump dressed Neurological: cranial nerve grossly intact, no focal deficits Psychiatric: normal affect, A&O x 3 Hosp A/P - Plan This is a 69-year-old male patient who had a recent right BKA, was discharged to rehab and contracted Covid and has been readmitted on account of acute hypoxic respiratory failure. He was initially on high flow oxygen however was successfully weaned off and has been on room air for about a day. This morning his hemoglobin dropped from 7.4-7.1 and he received transfusion as prescribed by his pecan sheller. His morning labs also showed persistent leukocytosis with increasing bands from 0-27. Physical therapy evaluated and recommended inpatient rehab. Patient has been adamant to be discharged home where he lives alone. Although he appeared relatively stable I was not comfortable to discharge him to go home alone given his recent BKA and uncertainties of Covid. His daughter who lives close by is unwilling to take responsibility for his care due to concerns for infection of the family. Although he insists he has care at home it is unclear who will be providing the care if he needed and what precautions will be taken. He also has anemia with concerns for possible GI bleed given that he has been on anticoagulants. He was evaluated by gastroenterology who however given he did not have any immediate hemorrhage or signs of hemorrhage was less worried about him being discharged. In my overall assessment I was uncomfortable to discharge him to go and live at home alone with his ongoing medical conditions. I discussed the options of rehab or a swing bed for transition but he was not agreeable. I discussed these with his daughter too who was in agreement. Patient eventually decided to go home AMAcalled for his own transportation. Acute hypoxic respiratory failure In the setting of Covid On dexamethasone We will continue ID consult Pneumonia due to Covid Manage as above. CKD stage IV Renal function stable Nephrology following DVT continue on lovenox for now as he also has elevated d dimer in the setting of covid No thrombus noted on recent lower extremity venogram Normocytic anemia Likely combination CKD/AP Hemoglobin dropped to 7.4 to 7.1 today Transfused one unit with improvement to 8.6 Continue on erythropoietin iron tablet BPH Continue tamsulosin Had recent retention with indwelling catheter placed a week ago. Indwelling Olivera catheter Olivera catheter was removed Patient diuresed well with no indication of retention Follow-up with urology on discharge S/p right BKA Wound clean Continue monitoring We will continue with rehab when discharged Diabetes mellitus On glargine and correctional insulin CODE STATUSfull code VTE prophylaxis Lovenox
--- NOTE | 2020-04-09 20:51 | PDOC.BPN ---
- Brief Progress Note Encounter Date: 04/09/20 Encounter Time: 12:00
--- NOTE | 2020-04-09 20:58 | CON ---
DATE OF CONSULTATION: 04/09/2020 REASON FOR CONSULTATION: Anemia and heme-positive stools. HISTORY OF PRESENT ILLNESS: Mr. Moore is a 69-year-old man, who has longstanding diabetes with peripheral vascular disease resulted in a right BKA recently along with chronic kidney disease. The patient was discharged to rehab, but was readmitted to the hospital with COVID-19 pneumonia. The patient has been on steroid with improving pulmonary status. The patient has had a persistent anemia without any overt bleeding such as melena, hematochezia, or melena. However, his stool did test positive for occult blood earlier today. He denies having any previous GI history except for pancreatitis. PAST MEDICAL HISTORY: 1. Adult onset diabetes. 2. Chronic kidney disease. 3. Coronary artery disease with cardiac stent. 4. Hernia repair. 5. Recent right BKA. 6. Ankle surgery. ALLERGIES: BACTRIM. MEDICATIONS: Include; 1. Proventil inhaler. 2. Azithromycin. 3. Ceftriaxone. 4. Dexamethasone. 5. Epogen. 6. Famotidine. 7. Iron sulfate. 8. Gabapentin. 9. Insulin. 10. Pantoprazole. 11. Tamsulosin. SOCIAL HISTORY: The patient is recently . He is a former smoker, stopped 10 years ago. No alcohol usage. FAMILY HISTORY: Negative for any known GI problem, liver disease, or GI malignancy. REVIEW OF SYSTEMS: Ten review of systems did not show any other reported symptom other than as listed above. PHYSICAL EXAMINATION: VITAL SIGNS: Temperature is 99.2, blood pressure 167/80, and pulse of 90. GENERAL: He is alert, sitting up in bed without distress. HEENT: Shows anicteric sclerae. NECK: Supple. CV: Shows normal S1 and S2. Regular rate and rhythm. CHEST: Shows a breath sounds. ABDOMEN: Soft and nontender. No palpable mass or organomegaly. Good bowel sounds. No bruit. EXTREMITIES: Shows changes of recent right BKA. LABORATORY DATA: WBCs 12.7, hemoglobin 8.6, platelet count of 421, and MCV of 91.3. Electrolytes within normal range. Creatinine 4.16. B12 of 699, ferritin of 216, and folic acid of 11.6. One heme-positive stool of undetermined significance. The patient does have a normocytic normochromic anemia without any true signs of iron deficiency except for low iron saturation of 6, although his TIBC is also low. The patient has no overt bleeding. ASSESSMENT AND PLAN: Endoscopic evaluation is indicated for evaluation of heme- positive stool. However, he is determined to go home and does not wish to proceed with upper endoscopy and colonoscopy. Recommendation as above, esophagogastroduodenoscopy and colonoscopy recommended to evaluate heme-positive stool. However, the patient declines and wants to go home. Job ID: [id number] [facility]
--- NOTE | 2020-04-15 14:39 | PDOC.DS.DS ---
Provider - Provider Date of Admission: 04/06/20 00:42 Date of Discharge: 04/09/20 Admitting Provider: Ayaka Mallory MD Primary Care Physician: Elissa Azul DO Course - Hospital Course Hospital Course: Patient left AMA This is a 69-year-old male patient who had a recent right BKA, was discharged to rehab and contracted Covid and has been readmitted on account of acute hypoxic respiratory failure. He was initially on high flow oxygen however was successfully weaned off and has been on room air for about a day. This morning his hemoglobin dropped from 7.4-7.1 and he received transfusion as prescribed by his retail equipment associate. His morning labs also showed persistent leukocytosis with increasing bands from 0-27. Physical therapy evaluated and recommended inpatient rehab. Patient has been adamant to be discharged home where he lives alone. Although he appeared relatively stable I was not comfortable to discharge him to go home alone given his recent BKA and uncertainties of Covid. His daughter who lives close by is unwilling to take responsibility for his care due to concerns for infection of the family. Although he insists he has care at home it is unclear who will be providing the care if he needed and what precautions will be taken. He also has anemia with concerns for possible GI bleed given that he has been on anticoagulants. He was evaluated by gastroenterology who however given he did not have any immediate hemorrhage or signs of hemorrhage was less worried about him being discharged. In my overall assessment I was uncomfortable to discharge him to go and live at home alone with his ongoing medical conditions. I discussed the options of rehab or a swing bed for transition but he was not agreeable. I discussed these with his daughter too who was in agreement. Patient eventually decided to go home AMAcalled for his own transportation. - Labs Lab Results: 04/09/20 14:30 04/09/20 04:42 Microbiology - Entire Visit 04/05/20 22:07 Venous blood - Right Hand Blood Culture - Final NO GROWTH IN 5 DAYS 04/05/20 22:07 Venous blood - Right Arm Blood Culture - Final NO GROWTH IN 5 DAYS 04/06/20 11:55 Stool Stool Occult Blood (HAKAN) - Final - Physical Exam Vitals: Weight Admit Weight 150 lb 2 oz Weight 150 lb 2 oz Physical Exam: The patient was seen and examined on the day of discharge. General Appearance: awake alert Heart: RRR, no murmur, no gallops, no rubs Respiratory - other findings: Bilateral crackles. Extremities: no cyanosis, no clubbing, no edema Extremities - other findings: BKA on right. Stump dressed Neurological: cranial nerve grossly intact, no focal deficits Psychiatric: normal affect, A&O x 3 Problem - Discharge Plan Assessment: Acute hypoxic respiratory failure In the setting of Covid On dexamethasone We will continue ID consult Pneumonia due to Covid Manage as above. CKD stage IV Renal function stable Nephrology following DVT continue on lovenox for now as he also has elevated d dimer in the setting of covid No thrombus noted on recent lower extremity venogram Normocytic anemia Likely combination CKD/AP Hemoglobin dropped to 7.4 to 7.1 today Transfused one unit with improvement to 8.6 Continue on erythropoietin iron tablet BPH Continue tamsulosin Had recent retention with indwelling catheter placed a week ago. Indwelling Olivera catheter Olivera catheter was removed Patient diuresed well with no indication of retention Follow-up with urology on discharge S/p right BKA Wound clean Continue monitoring We will continue with rehab when discharged Diabetes mellitus On glargine and correctional insulin Disposition: Patient left AMA Plan - Discharge Medications Prescriptions: Dexamethasone [Decadron] 8 mg PO DAILY #12 tab Home Medications: Medication Instructions Recorded Confirmed Type Insulin Lispro [HumaLOG KwikPen] 0 unit SC AC PRN 11/10/13 04/06/20 History Sodium Bicarbonate 650 mg PO TID 10/21/16 04/06/20 History NPH, Human Insulin Isophane 5 unit SC BID #1 vial 03/26/20 04/11/20 Rx [HumuLIN N] Clotrimazole 1% Cream [Lotrimin 1% 1 applic TOP BID 04/06/20 04/11/20 History Cream] Gabapentin [Neurontin] 300 mg PO Q2DAYS 04/06/20 04/11/20 History Omeprazole 40 mg PO DAILY 04/06/20 04/11/20 History Restasis [Restasis Ophth Drops] 1 drop EA EYE BID 04/06/20 04/11/20 History Tamsulosin HCl [Flomax] 0.4 mg PO HS 04/06/20 04/11/20 History Dexamethasone [Decadron] 8 mg PO DAILY #12 tab 04/08/20 04/11/20 Rx Allergies: sulfamethoxazole [From Bactrim] Allergy (Verified 04/06/20 10:28) PER ER REPORT trimethoprim [From Bactrim] Allergy (Verified 04/06/20 10:28) - Discharge Instructions Activity:: Activity as Tolerated - Follow up Plan Referrals: Sveta Beltre MD [Active] - Elissa Azul DO [Primary Care Provider] - 7 Days (Check hemoglobin) Alexandre Rodrigues MD [Active] - 2-3 Weeks Disposition: LEFT AGAINST MEDICAL ADVICE Quality - Care Measures CORE MEASURES:: N/A
== END 2020-04-09 19:45 | disposition left against medical advice (07) | DRG 177 ==
LOC: ERS 21:27 → 2SW 04-06 00:42
PROVIDERS: ADMIT Internal Medicine; ATTEND Internal Medicine
PROC: 8E0ZXY6 Isolation (ICD-10-PCS; principal; 2020-04-06)
PROC: 30233N1 Transfusion of Nonautologous Red Blood Cells into Peripheral Vein, Percutaneous Approach (ICD-10-PCS; 2020-04-09)
DX: U07.1 COVID-19 (principal); J12.89 Other viral pneumonia; J96.01 Acute respiratory failure with hypoxia; N18.4 Chronic kidney disease, stage 4 (severe); D50.9 Iron deficiency anemia, unspecified; D63.1 Anemia in chronic kidney disease; N40.0 Benign prostatic hyperplasia without lower urinary tract symptoms; E11.22 Type 2 diabetes mellitus with diabetic chronic kidney disease; I48.91 Unspecified atrial fibrillation; E11.319 Type 2 diabetes mellitus with unspecified diabetic retinopathy without macular edema; I25.10 Atherosclerotic heart disease of native coronary artery without angina pectoris; M54.5 Low back pain; G89.29 Other chronic pain; I12.9 Hypertensive chronic kidney disease with stage 1 through stage 4 chronic kidney disease, or unspecified chronic kidney disease; E11.42 Type 2 diabetes mellitus with diabetic polyneuropathy; Z88.1 Allergy status to other antibiotic agents; Z88.2 Allergy status to sulfonamides; Z87.891 Personal history of nicotine dependence; Z95.5 Presence of coronary angioplasty implant and graft; Z89.511 Acquired absence of right leg below knee; Z86.718 Personal history of other venous thrombosis and embolism; Z79.82 Long term (current) use of aspirin; Z79.899 Other long term (current) drug therapy; Z79.4 Long term (current) use of insulin; Z79.52 Long term (current) use of systemic steroids; Z98.42 Cataract extraction status, left eye
CPT/HCPCS: 36415; 36416; 36430; 71045; 71250; 80048; 82274; 82553; 82607; 82728; 82746; 83540; 83550; 83605; 83615; 83690; 83735; 83880; 84484; 85025; 85379; 86140; 86769; 86850; 86900; 86901; 93005; 93970; 96365; J0456; J0696; J1100; J1644; J1650; J1815; J2916; J3475; J3490; J7050; J7512; P9016; P9017; Q5105

== ENCOUNTER 2020-04-10 18:05 | Inpatient (IN) | payer MEDICARE, MEDICAID ==
[2020-04-10] MEDS ORDERED: Insulin Regular 300 UNITS/3 ML VIAL ONE ×2 (19:06→19:12)
[2020-04-10 19:07] LABS: #Lymphocytes 0.7 thou/uL (1.20-3.40); #Monocytes 0.4 thou/uL (0.11-0.59); #Neutrophils 9.2 thou/uL (1.40-6.50); %Basophils 0.3 % (0.0-1.0); %Eosinophils 0.3 % (0.0-10.0); %Lymphocytes 7.1 % (21.0-51.0); %Monocytes 3.4 % (0.0-10.0); Hemoglobin 9.8 g/dL (14.0-18.0); Mean Corpuscular Hemoglobin 29.2 pg (27.0-31.0); Mean Corpuscular Volume 91.2 fL (78.0-98.0); Mean Platelet Volume 7.6 fL (7.4-10.4); Platelet Count 470 thou/uL (130-400); RBC Distribution Width 17.5 % (11.5-14.5); Red Blood Cell (RBC) Count 3.35 mill/uL (4.70-6.10); White Blood Cell (WBC) Count 10.3 thou/uL (4.8-10.8)
--- NOTE | 2020-04-10 19:13 | RAD ---
Portable frontal chest radiograph: 04/10/2020 COMPARISON: 04/05/2020 HISTORY: Blurred vision, diabetes, Covid pneumonia FINDINGS: There is interstitial and alveolar opacity/groundglass opacity in the medial right upper lo be, bilateral perihilar regions, and both lung bases, left greater than right. Aeration within both lung bases has improved when compared to the prior examination. Small bilateral pleural effusions are noted. IMPRESSION: Nonspecific interstitial and alveolar/ground glass opacity with small bilateral pleural e ffusions, improved. Findings may signify improving pulmonary edema and/or atypical infectious pneumonitis, including Covid pneumonia.
[2020-04-10 19:21] LABS: Bilirubin Negative (Negative); Blood, Urine 3+ (Negative); Clarity Turbid (Clear); Glucose, Urine (Dipstick) Greater than 1000 mg/dL (Negative); Ketone, Urine Negative (Negative); Leukocyte 500 Leu/uL (Negative); Nitrite Negative (Negative); Protein, Urine (Dipstick) 300 mg/dL (Neg-Trace); RBC/HPF Greater than 50 HPF (0-3); Squamous Epithelial None Seen HPF (0-3); Urobilinogen Normal mg/dL (Less than 2); WBC/HPF Greater than 50 HPF (0-3); pH, Urine 6.5 (5.0-9.0)
[2020-04-10 19:23] LABS: Bacteria/HPF 1+ HPF (None Seen); Yeast-Budding Rare HPF (None Seen)
[2020-04-10 19:28] LABS: ALT (SGPT) 25 U/L (8-55); AST (SGOT) 18 U/L (5-34); Albumin 3.5 g/dL (3.4-4.8); Alkaline Phosphatase 136 U/L (40-110); Anion Gap 20 mmol/L (10-20); BUN (Urea Nitrogen) 58 mg/dL (8.4-25.7); Bilirubin, Total 0.5 mg/dL (0.2-1.2); Calc. Creatinine Clearance 0 mL/min (70-130); Calcium 7.4 mg/dL (7.8-10.44); Carbon Dioxide 21 mmol/L (23-31); Chloride 94 mmol/L (98-107); Glucose 333 mg/dL (80-115); Potassium 3.7 mmol/L (3.5-5.1); Protein, Total 7.5 g/dL (5.8-8.1); Sodium 131 mmol/L (136-145)
[2020-04-10] MEDS ORDERED: cefTRIAXone\\ROCEPHIN 1 GM VIAL ONE (21:13)
[2020-04-11] MEDS ORDERED: Ondansetron PF 4 MG/2 ML Vial IVP PRN (04:15)
[2020-04-11] MEDS ORDERED: Ondansetron ODT 4 MG TAB SL PRN (04:15)
[2020-04-11 04:17] VITALS: BMI 18.6
[2020-04-11] MEDS ORDERED: Dextrose 5% in Water 1,000 ML IV PRN (10:39)
[2020-04-11] MEDS ORDERED: Dextrose 50% Abboject 50 ML SYRINGE SLOW IVP PRN (10:39)
[2020-04-11] MEDS ORDERED: Dexamethasone 20 MG/5 ML VIAL SLOW IVP SCH (11:00)
[2020-04-11] MEDS ORDERED: Dexamethasone 4 mg/ml Vial SLOW IVP SCH (11:30)
[2020-04-11] MEDS ORDERED: Gabapentin 300 MG CAP PO SCH (12:45)
[2020-04-11] MEDS: Amlodipine 10 MG TAB PO SCH (12:47)
[2020-04-11] MEDS: Furosemide 40 MG/4 ML VIAL SLOW IVP SCH (12:47)
[2020-04-11] MEDS: Gabapentin 300 MG CAP PO SCH (12:48)
[2020-04-11] MEDS: HumaLOG 300 UNITS/3 ML VIAL SC PRN ×2 (12:50→17:37)
--- NOTE | 2020-04-11 13:11 | PDOC.HHP ---
Hospitalist HPI - History of Present Illness SOB, Uncontrolled BG History of Present Illness: 69 YO man witha PMh of DM, PAD, CKD Hospitalist ROS - Medication Medications: Active Medications Generic Name Dose Route Start Last Admin Trade Name Italia PRN Reason Stop Dose Admin Amlodipine Besylate 10 mg 04/11/20 09:00 04/11/20 12:47 Amlodipine 10 Mg Tab PO 10 mg DAILY GADIEL Administration Dexamethasone 6 mg 04/11/20 11:30 04/11/20 12:47 Dexamethasone 4 Mg/Ml Vial SLOW IVP 04/11/20 14:00 6 mg NOW GADIEL Administration Furosemide 40 mg 04/11/20 14:00 04/11/20 12:47 Furosemide 40 Mg/4 Ml Vial SLOW IVP 40 mg 0600,1400 GADIEL Administration Gabapentin 300 mg 04/11/20 11:00 04/11/20 12:48 Gabapentin 300 Mg Cap PO Not Given Q2DAYS GADIEL Gabapentin 300 mg 04/11/20 12:45 04/11/20 12:47 Gabapentin 300 Mg Cap PO 04/11/20 15:00 300 mg NOW GADIEL Administration Insulin Human Lispro 0 units 04/11/20 10:39 04/11/20 12:50 Humalog 300 Units/3 Ml Vial SC 3 unit .MILD SLIDING SCALE PRN Administration Mild Correctional Scale Hospitalist Results - Labs Result Diagrams: 04/10/20 18:49 04/10/20 18:49 Lab results: WBC 10.3 thou/uL (4.8-10.8) 04/10/20 18:49 Hgb 9.8 g/dL (14.0-18.0) L 04/10/20 18:49 Hct 30.5 % (42.0-52.0) L 04/10/20 18:49 MCV 91.2 fL (78.0-98.0) 04/10/20 18:49 Plt Count 470 thou/uL (130-400) H 04/10/20 18:49 Neutrophils % 89.0 % (42.0-75.0) H 04/10/20 18:49 Sodium 131 mmol/L (136-145) L 04/10/20 18:49 Potassium 3.7 mmol/L (3.5-5.1) 04/10/20 18:49 Chloride 94 mmol/L (98-107) L 04/10/20 18:49 Carbon Dioxide 21 mmol/L (23-31) L 04/10/20 18:49 BUN 58 mg/dL (8.4-25.7) H 04/10/20 18:49 Creatinine 3.84 mg/dL (0.7-1.3) H 04/10/20 18:49 Glucose 333 mg/dL (80-115) H 04/10/20 18:49 Lactic Acid 1.3 mmol/L (0.5-2.2) 04/10/20 18:49 Calcium 7.4 mg/dL (7.8-10.44) L 04/10/20 18:49 Total Bilirubin 0.5 mg/dL (0.2-1.2) 04/10/20 18:49 AST 18 U/L (5-34) 04/10/20 18:49 ALT 25 U/L (8-55) 04/10/20 18:49 Alkaline Phosphatase 136 U/L (40-110) H 04/10/20 18:49 B-Natriuretic Peptide 1928.4 pg/mL (0-100) H 04/10/20 18:49 Serum Total Protein 7.5 g/dL (5.8-8.1) 04/10/20 18:49 Albumin 3.5 g/dL (3.4-4.8) 04/10/20 18:49 Urine Ketones Negative mg/dL (Negative) 04/10/20 18:52 Urine Blood 3+ (Negative) A 04/10/20 18:52 Urine Nitrite Negative (Negative) 04/10/20 18:52 Ur Leukocyte Esterase 500 Anastasiya/uL (Negative) A 04/10/20 18:52 Urine RBC Greater than 50 HPF (0-3) A 04/10/20 18:52 Urine WBC Greater than 50 HPF (0-3) A 04/10/20 18:52 Ur Squamous Epith Cells None Seen HPF (0-3) 04/10/20 18:52 Urine Bacteria 1+ HPF (None Seen) A 04/10/20 18:52
--- NOTE | 2020-04-11 13:26 | PDOC.HHP ---
Hospitalist HPI - History of Present Illness SOB, Uncontrolled BG History of Present Illness: 69 YO man with a PMH of CKD, HTN, DM2, PAD sp recent R BKA on 04/05 who was recently admitted for COVID on 03/21/20. Pt was weaned off that O2 during that hospital stay but decided to leave AMA. Pt stated he did not have his DM meds upon DC and so stated he was having uncontrolled BG. He also became more SOB and noted he was passing blood on urination. Upon presentation to the hospital, he was noted to be hyperglycemic and hypoxic. Pt was therefore admitted for further eval. Hospitalist ROS - Review of Systems Constitutional: reports: weakness. denies: fever, chills, sweats, malaise, other Eyes: denies: pain, vision change, conjunctivae inflammation, eyelid inflammation, redness, other ENT: denies: ear pain, ear discharge, nose pain, nose discharge, nose congestion, mouth pain, mouth swelling, throat pain, throat swelling, other Respiratory: reports: shortness of breath Cardiovascular: denies: chest pain, palpitations, orthopnea, paroxysmal noc. dyspnea, edema, light headedness, other Gastrointestinal: denies: nausea, vomiting, abdominal pain, diarrhea, constipation, melena, hematochezia, other Musculoskeletal: denies: neck pain, shoulder pain, arm pain, back pain, hand pain, leg pain, foot pain, other Skin: denies: rash, lesions, leslie, bruising, other Neurological: denies: weakness, numbness, incoordination, change in speech, confusion, seizures, other - Medication Medications: Active Medications Generic Name Dose Route Start Last Admin Trade Name Italia PRN Reason Stop Dose Admin Amlodipine Besylate 10 mg 04/11/20 09:00 04/11/20 12:47 Amlodipine 10 Mg Tab PO 10 mg DAILY GADIEL Administration Dexamethasone 6 mg 04/11/20 11:30 04/11/20 12:47 Dexamethasone 4 Mg/Ml Vial SLOW IVP 04/11/20 14:00 6 mg NOW GADIEL Administration Furosemide 40 mg 04/11/20 14:00 04/11/20 12:47 Furosemide 40 Mg/4 Ml Vial SLOW IVP 40 mg 0600,1400 GADIEL Administration Gabapentin 300 mg 04/11/20 11:00 04/11/20 12:48 Gabapentin 300 Mg Cap PO Not Given Q2DAYS GADIEL Gabapentin 300 mg 04/11/20 12:45 04/11/20 12:47 Gabapentin 300 Mg Cap PO 04/11/20 15:00 300 mg NOW GADIEL Administration Insulin Human Lispro 0 units 04/11/20 10:39 04/11/20 12:50 Humalog 300 Units/3 Ml Vial SC 3 unit .MILD SLIDING SCALE PRN Administration Mild Correctional Scale Hospitalist History - Past Medical History Cardiac: reports: CAD, CHF Pulmonary: reports: hypertension Heme/Onc: reports: Anemia NOS Renal/: reports: Chronic renal insuff Endocrine: reports: Diabetes - Exam General Appearance: awake alert, ill appearing Eye: PERRL, anicteric sclera ENT: normocephalic atraumatic Neck: supple, symmetric, no JVD, no thyromegaly Heart: RRR, no murmur, no gallops, no rubs Respiratory: CTAB, no wheezes, no rales, normal chest expansion Gastrointestinal: soft, non-tender, non-distended, normal bowel sounds Extremities - other findings: R BKA Skin: no lesions, no rashes Neurological: cranial nerve grossly intact, no focal deficits Musculoskeletal: normal strength Psychiatric: normal affect, A&O x 3, oriented to place Hospitalist Results - Labs Result Diagrams: 04/10/20 18:49 04/10/20 18:49 Lab results: WBC 10.3 thou/uL (4.8-10.8) 04/10/20 18:49 Hgb 9.8 g/dL (14.0-18.0) L 04/10/20 18:49 Hct 30.5 % (42.0-52.0) L 04/10/20 18:49 MCV 91.2 fL (78.0-98.0) 04/10/20 18:49 Plt Count 470 thou/uL (130-400) H 04/10/20 18:49 Neutrophils % 89.0 % (42.0-75.0) H 04/10/20 18:49 Sodium 131 mmol/L (136-145) L 04/10/20 18:49 Potassium 3.7 mmol/L (3.5-5.1) 04/10/20 18:49 Chloride 94 mmol/L (98-107) L 04/10/20 18:49 Carbon Dioxide 21 mmol/L (23-31) L 04/10/20 18:49 BUN 58 mg/dL (8.4-25.7) H 04/10/20 18:49 Creatinine 3.84 mg/dL (0.7-1.3) H 04/10/20 18:49 Glucose 333 mg/dL (80-115) H 04/10/20 18:49 Lactic Acid 1.3 mmol/L (0.5-2.2) 04/10/20 18:49 Calcium 7.4 mg/dL (7.8-10.44) L 04/10/20 18:49 Total Bilirubin 0.5 mg/dL (0.2-1.2) 04/10/20 18:49 AST 18 U/L (5-34) 04/10/20 18:49 ALT 25 U/L (8-55) 04/10/20 18:49 Alkaline Phosphatase 136 U/L (40-110) H 04/10/20 18:49 B-Natriuretic Peptide 1928.4 pg/mL (0-100) H 04/10/20 18:49 Serum Total Protein 7.5 g/dL (5.8-8.1) 04/10/20 18:49 Albumin 3.5 g/dL (3.4-4.8) 04/10/20 18:49 Urine Ketones Negative mg/dL (Negative) 04/10/20 18:52 Urine Blood 3+ (Negative) A 04/10/20 18:52 Urine Nitrite Negative (Negative) 04/10/20 18:52 Ur Leukocyte Esterase 500 Anastasiya/uL (Negative) A 04/10/20 18:52 Urine RBC Greater than 50 HPF (0-3) A 04/10/20 18:52 Urine WBC Greater than 50 HPF (0-3) A 04/10/20 18:52 Ur Squamous Epith Cells None Seen HPF (0-3) 04/10/20 18:52 Urine Bacteria 1+ HPF (None Seen) A 04/10/20 18:52 Hospitalist H&P A/P - Problem (1) CAD (coronary artery disease) Code(s): I25.10 - ATHSCL HEART DISEASE OF [place] CORONARY ARTERY W/O ANG PCTRS Status: Acute Assessment and Plan: No CP now. Will cont med mgt. (2) COVID-19 virus detected Code(s): U07.1 - COVID-19 Status: Acute Assessment and Plan: CXR is better but pt is hypoxic. Will restart steroids, Vit D, C and Zinc. Provide O2 support (3) PVD (peripheral vascular disease) Code(s): I73.9 - PERIPHERAL VASCULAR DISEASE, UNSPECIFIED Status: Acute Assessment and Plan: Cont conservative mgt. (4) Chronic kidney disease, stage IV (severe) Code(s): N18.4 - CHRONIC KIDNEY DISEASE, STAGE 4 (SEVERE) Status: Chronic Assessment and Plan: Will consult Nephrology. Monitor Cr. (5) Type II diabetes mellitus with neurological manifestations Code(s): E11.49 - TYPE 2 DIABETES W OTH DIABETIC NEUROLOGICAL COMPLICATION Status: Chronic Assessment and Plan: BG is uncontrolled, due to pt not having his meds at home, Will restart home dose meds. Monitor BG, cover with SSI. (6) Respiratory failure Code(s): J96.90 - RESPIRATORY FAILURE, UNSP, UNSP W HYPOXIA OR HYPERCAPNIA Status: Acute Qualifiers: Chronicity: acute Respiratory failure complication: hypoxia Qualified Code(s): J96.01 - Acute respiratory failure with hypoxia Assessment and Plan: Pt is hypoxic again. Now on 3L of O2. Will cont to wean as tolerated. (7) Hematuria Code(s): R31.9 - HEMATURIA, UNSPECIFIED Status: Acute Assessment and Plan: Unclear etiology. Will consult Urology. (8) S/P BKA (below knee amputation) Code(s): Z89.519 - ACQUIRED ABSENCE OF UNSPECIFIED LEG BELOW KNEE Status: Acute Qualifiers: Laterality: right Qualified Code(s): Z89.511 - Acquired absence of right leg below knee Assessment and Plan: Will have wound mgt, inspect wound. - Plan Plan: PPx: SCDs gilbert due to hematuria. CODE: FULL. Disposition. Admit as inpatient. Consult Urology, Nephrology.
[2020-04-11] MEDS ORDERED: Labetalol HCl 100 MG/20 ML VIAL SLOW IVP PRN (14:00)
--- NOTE | 2020-04-11 14:42 | CT ---
CT Abdomen Pelvis WO Con: 04/11/2020 2:16 PM HISTORY: Hematuria. Covid positive COMPARISON: 03/25/2018; CT chest 04/06/2020 TECHNIQUE: Multiple contiguous axial images were obtained and a CT of the abdomen and pelvis without IV contrast . Coronal and sagittal reformats were performed. FINDINGS: This examination is limited for the evaluation of solid organs and vascular structures due to the lac k of intravenous contrast. Lower Chest: Small bilateral pleural effusions. Scattered peripheral groundglass opacities are seen i n the lungs consistent with Covid pneumonia. Abdomen: Liver: within normal limits. Bile Ducts: Normal caliber. Gallbladder: Hyperdensity in the dependent aspect may represent gallstones. Pancreas: within normal limits. Spleen: within normal limits. Adrenals: within normal limits. Kidneys: within normal limits. Pelvis: Reproductive Organs: The patient has a penile prosthesis. Ureters: within normal limits. They are difficult to follow given the lack of IV contrast and intra-a bdominal fat as well as soft tissue anasarca. Bladder: Multifocal dependent high density lesions are seen in the urinary bladder measuring up to 2. 6 cm in size. There is a bubble of nondependent air in the urinary bladder. Bowel: Normal caliber. Scattered diverticula in the colon. Mesenteric Lymph Nodes: No enlarged mesenteric lymph nodes. Peritoneum: No ascites or free air, no fluid collection. Vessels: Diffuse atherosclerotic calcifications are seen. Retroperitoneum: within normal limits. Abdominal Wall: Diffuse Soft tissue anasarca. Bones: Degenerative changes in the spine. IMPRESSION: 1. Multiple high density dependent foci in the urinary bladder are nonspecific and could represent ei ther blood clots or multiple bladder masses. The bubble of air in the urinary bladder could be secondary to a urinary tract infection or from recent instrumentation. 2. Cholelithiasis 3. Diverticulosis 4. Covid pneumonia and small bilateral pleural effusions
[2020-04-11] MEDS: Sodium Bicarbonate Tab 325 MG TAB PO SCH ×2 (15:10→20:16)
[2020-04-11] MEDS: Benzonatate 100 MG CAP PO SCH ×2 (15:11→20:16)
[2020-04-11] MEDS: Tamsulosin HCl 0.4 MG CAP PO SCH (20:16)
[2020-04-11] MEDS: Metoprolol Tartrate 50 MG TAB PO SCH (20:16)
[2020-04-11] MEDS: Clotrimazole 1 % Cream 30 GM TUBE TOP SCH ×2 (20:16→20:18)
[2020-04-11] MEDS: NPH, Human Insulin Isophane 300 UNIT/3 ML VIAL SC SCH (20:17)
[2020-04-11] MEDS: cycloSPORINE 0.05% Ophthalmic Droperette EA EYE SCH ×2 (20:19→22:09)
[2020-04-12 05:19] LABS: #Lymphocytes 0.7 thou/uL (1.20-3.40); #Monocytes 0.3 thou/uL (0.11-0.59); #Neutrophils 6.1 thou/uL (1.40-6.50); %Basophils 0.2 % (0.0-1.0); %Eosinophils 0.1 % (0.0-10.0); %Lymphocytes 9.6 % (21.0-51.0); %Monocytes 4.4 % (0.0-10.0); %Neutrophils 85.7 % (42.0-75.0); Hemoglobin 8.4 g/dL (14.0-18.0); Mean Corpuscular HGB CONC 30.4 g/dL (32.0-36.0); Mean Corpuscular Hemoglobin 27.4 pg (27.0-31.0); Mean Corpuscular Volume 90.3 fL (78.0-98.0); Mean Platelet Volume 7.6 fL (7.4-10.4); Platelet Count 431 thou/uL (130-400); RBC Distribution Width 16.4 % (11.5-14.5); Red Blood Cell (RBC) Count 3.07 mill/uL (4.70-6.10); White Blood Cell (WBC) Count 7.1 thou/uL (4.8-10.8)
[2020-04-12 05:40] LABS: Anion Gap 17 mmol/L (10-20); BUN (Urea Nitrogen) 62 mg/dL (8.4-25.7); Calc. Creatinine Clearance 15 mL/min (70-130); Carbon Dioxide 23 mmol/L (23-31); Chloride 92 mmol/L (98-107); Glucose 258 mg/dL (80-115); Potassium 3.2 mmol/L (3.5-5.1); Sodium 129 mmol/L (136-145)
[2020-04-12] MEDS: Furosemide 40 MG/4 ML VIAL SLOW IVP SCH (06:14)
[2020-04-12] MEDS: HumaLOG 300 UNITS/3 ML VIAL SC PRN ×4 (06:14→23:34)
[2020-04-12] MEDS ORDERED: Epoetin (ESRD) 20,000 UNITS/ML SC SCH (08:15)
--- NOTE | 2020-04-12 08:27 | PRG ---
DATE OF SERVICE: 04/12/2020 SUBJECTIVE: Mr. Moore is a 69-year-old white male with chronic renal failure from diabetic nephropathy and went AMA a few days ago. However, he did not feel well at home and he went back to the hospital. He is being readmitted due to a previous and recent diagnosis of COVID-19 pneumonia. We are consulted with this patient for management of his chronic renal failure. On readmission, he was complaining of shortness of breath. For that reason, he was placed on diuretics. His breathing is much better this morning. For that reason, we will be discontinuing his diuretics. A CT scan of the abdomen and pelvis was done and there was an incidental finding of multiple high-density dependent foci in the urine and bladder, which are nonspecific, per se could be blood clots or ? of bladder masses. There is also a bubble of air in the urinary bladder, it could be secondary to UTI. OBJECTIVE: VITAL SIGNS: He had BP of 132/66, heart rate 71, respiratory rate 20, temperature 98.9, and O2 saturation 93%. GENERAL: The patient is noted to be awake, alert, comfortable, not in overt distress. SKIN: Adequate turgor. HEENT: Slightly pale conjunctivae. Anicteric sclerae. NECK: No neck mass. No carotid bruits. No JVD. CHEST: No deformities. LUNGS: Harsh breath sounds. No wheezing. HEART: Normal sinus rhythm. No murmurs. No gallops. No rubs. ABDOMEN: Globular, soft, and nontender. No masses. EXTREMITIES: No edema. Status post right BKA. MEDICATIONS: Of April 12, 2020, was reviewed. LABORATORY DATA: Laboratories of April 12, 2020; white count 7.1, hemoglobin 8.4. Sodium 129, potassium 3.2, chloride 92, carbon dioxide 23, BUN 62, creatinine 4.04, glucose 258, and calcium 7. On April 10, 2020, creatinine 3.84. ASSESSMENT AND PLAN: 1. Acute kidney injury on top of his chronic renal failure - superimposed prerenal azotemia. This could be related to the diuretics. We will discontinue Lasix. Continue to observe. No indication for any emergent hemodialysis with this patient. 2. Mild hypokalemia - Lasix/furosemide has been discontinued. 3. Anemia. Restart Epogen 7500 units subcu every week. 4. COVID-19 pneumonia. Supportive care. Job ID: [id number]
[2020-04-12] MEDS ORDERED: Dexamethasone 4 MG TAB PO SCH (09:00)
[2020-04-12] MEDS ORDERED: Dexamethasone 20 MG/5 ML VIAL SLOW IVP SCH (09:00)
[2020-04-12] MEDS: Sodium Bicarbonate Tab 325 MG TAB PO SCH ×3 (09:44→21:49)
[2020-04-12] MEDS: NPH, Human Insulin Isophane 300 UNIT/3 ML VIAL SC SCH ×2 (09:44→21:52)
[2020-04-12] MEDS: Zinc Sulfate 220 MG CAP PO SCH (09:45)
[2020-04-12] MEDS: Metoprolol Tartrate 50 MG TAB PO SCH ×2 (09:46→21:49)
[2020-04-12] MEDS: Ascorbic Acid 500 mg Chewable Tablet PO SCH (09:46)
[2020-04-12] MEDS: Amlodipine 10 MG TAB PO SCH (09:46)
[2020-04-12] MEDS: Benzonatate 100 MG CAP PO SCH ×3 (09:46→21:49)
[2020-04-12] MEDS: Cholecalciferol 1,000 UNITS (25 MCG) TAB PO SCH (09:49)
[2020-04-12] MEDS: Dexamethasone 4 mg/ml Vial SLOW IVP SCH (09:49)
[2020-04-12] MEDS: Clotrimazole 1 % Cream 30 GM TUBE TOP SCH ×2 (10:26→21:49)
[2020-04-12] MEDS ORDERED: EPOETIN ALFA-EPBX (ESRD) 4,000 UNIT/ML VIAL SC SCH (12:00)
[2020-04-12] MEDS: cycloSPORINE 0.05% Ophthalmic Droperette EA EYE SCH ×2 (13:05→21:52)
--- NOTE | 2020-04-12 15:04 | PDOC.HOSPP ---
- Subjective Encounter Date: 04/12/20 - Objective Vital Signs & Weight: Vital Signs (12 hours) Temp Pulse Resp BP Pulse Ox 04/12/20 11:30 98.8 F 71 18 117/66 94 L 04/12/20 08:28 98 F 73 17 119/65 93 L 04/12/20 03:13 98.9 F 71 20 132/66 93 L Weight Admit Weight 129 lb 12.8 oz Weight 129 lb 12.8 oz I&O: 04/11/20 04/12/20 04/13/20 06:59 06:59 06:59 Intake Total 1244 Output Total 1776 Balance -532 Result Diagrams: 04/12/20 05:02 04/12/20 05:02 Additional Labs: Accuchecks 04/12/20 04/11/20 04/11/20 11:42 20:15 16:17 POC Glucose 288 H 282 H 263 H Hospitalist ROS - Medication Medications: Active Medications Generic Name Dose Route Start Last Admin Trade Name Freq PRN Reason Stop Dose Admin Amlodipine Besylate 10 mg 04/11/20 09:00 04/12/20 09:46 Amlodipine 10 Mg Tab PO 10 mg DAILY GADIEL Administration Ascorbic Acid 1,000 mg 04/12/20 09:00 04/12/20 09:46 Ascorbic Acid 500 Mg Chewable Tablet PO 1,000 mg DAILY GADIEL Administration Benzonatate 100 mg 04/11/20 15:00 04/12/20 14:38 Benzonatate 100 Mg Cap PO 100 mg TID GADIEL Administration Cholecalciferol 2,000 units 04/12/20 09:00 04/12/20 09:49 Cholecalciferol 1,000 Units (25 Mcg) Tab PO 2,000 units DAILY GADIEL Administration Clotrimazole 0 gm 04/11/20 21:00 04/12/20 10:26 Clotrimazole 1 % Cream 30 Gm Tube TOP Not Given BID GADIEL Cyclosporine 0 ml 04/11/20 21:00 04/12/20 13:05 Cyclosporine 0.05% Ophthalmic Droperette EA EYE 0.4 ml BID GADIEL Administration Dexamethasone 6 mg 04/12/20 09:00 04/12/20 09:49 Dexamethasone 4 Mg/Ml Vial SLOW IVP 6 mg DAILY GADIEL Administration Epoetin Lars-epbx 7,500 unit 04/12/20 12:00 04/12/20 13:04 Epoetin Lars-Epbx (Esrd) 4,000 Unit/Ml Vial SC 7,500 unit Q7D GADIEL Administration Gabapentin 300 mg 04/11/20 11:00 04/11/20 12:48 Gabapentin 300 Mg Cap PO Not Given Q2DAYS GADIEL Insulin Human Lispro 0 units 04/11/20 10:39 04/12/20 13:03 Humalog 300 Units/3 Ml Vial SC 4 unit .MILD SLIDING SCALE PRN Administration Mild Correctional Scale Insulin Human NPH 5 unit 04/11/20 21:00 04/12/20 09:44 Nph, Human Insulin Isophane 300 Unit/3 Ml Vial SC 5 unit BID GADIEL Administration Metoprolol Tartrate 50 mg 04/11/20 21:00 04/12/20 09:46 Metoprolol Tartrate 50 Mg Tab PO 50 mg BID GADIEL Administration Pantoprazole Sodium 40 mg 04/12/20 09:00 04/12/20 09:46 Pantoprazole 40 Mg Tab PO 40 mg DAILY GADIEL Administration Sodium Bicarbonate 650 mg 04/11/20 15:00 04/12/20 14:38 Sodium Bicarbonate Tab 325 Mg Tab PO 650 mg TID GADIEL Administration Tamsulosin HCl 0.4 mg 04/11/20 21:00 04/11/20 20:16 Tamsulosin Hcl 0.4 Mg Cap PO 0.4 mg HS GADIEL Administration Zinc Sulfate 220 mg 04/12/20 09:00 04/12/20 09:45 Zinc Sulfate 220 Mg Cap PO 220 mg DAILY GADIEL Administration - Exam General Appearance: awake alert ENT: normocephalic atraumatic Neck: supple, no JVD Heart: RRR Respiratory: normal chest expansion, no tachypnea, rhonchi Extremities: no cyanosis, no clubbing Hosp A/P (1) Acute respiratory failure with hypoxia Code(s): J96.01 - ACUTE RESPIRATORY FAILURE WITH HYPOXIA Status: Acute (2) Hematuria Code(s): R31.9 - HEMATURIA, UNSPECIFIED Status: Acute (3) CAD (coronary artery disease) Code(s): I25.10 - ATHSCL HEART DISEASE OF [place] CORONARY ARTERY W/O ANG PCTRS Status: Acute (4) Chronic renal failure Status: Acute (5) Chronic kidney disease, stage IV (severe) Code(s): N18.4 - CHRONIC KIDNEY DISEASE, STAGE 4 (SEVERE) Status: Chronic - Plan Hematuria with evidence of clots in the urinary bladder on imaging. Bladder irrigation per urology. Continue supplemental oxygen and dexamethasone. Anticoagulation on hold. Diuretics on hold due to worsening kidney function. Sugar levels are uncontrolled. Change sliding scale to aggressive. Appreciate nephrology.
[2020-04-12] MEDS ORDERED: Dextrose 50% Abboject 50 ML SYRINGE SLOW IVP PRN (15:07)
[2020-04-12] MEDS ORDERED: Dextrose 5% in Water 1,000 ML IV PRN (15:07)
--- NOTE | 2020-04-12 21:43 | CON ---
DATE OF CONSULTATION: REASON FOR CONSULTATION: Gross hematuria, possible bladder mass versus clot. HISTORY OF PRESENT ILLNESS: Mr. Moore is a 69-year-old male with chronic renal failure secondary to diabetic nephropathy, who was admitted recently for a right BKA and subsequent diagnosis of COVID-19 pneumonia. The patient actually left the hospital AMA during his treatment for his COVID-19. He presented back with shortness of breath and was found to be hypoxic. He was placed in the COVID unit and started back on oxygen. A CT scan of his abdomen and pelvis was performed, and there was incidental finding of some high-density material in the urine and bladder concerning for blood clot versus bladder masses. There was also some concern of UTI with a focus of air in the bladder, although the patient may have been recently catheterized. Urology was consulted for further evaluation. The patient states he has had a Olivera placed recently, and this was removed. He is currently voiding into a diaper. He has history of chronic incomplete bladder emptying and sees Dr. Cooper Dunbar as an outpatient. He denies any gross hematuria. No fever or chills. No other complaints. OBJECTIVE: VITAL SIGNS: Blood pressure 132/66, heart rate 71, respirations 18, temperature 98.9, and oxygen saturation 93% on 2 L nasal cannula. GENERAL: He is alert and oriented x3. No apparent distress. HEENT: Normocephalic and atraumatic. NECK: Supple. No masses or lymphadenopathy. CARDIOVASCULAR: Regular rate and rhythm. PULMONARY: Breathing unlabored. ABDOMEN: Soft, nontender/nondistended. No masses or organomegaly. No suprapubic tenderness to palpation. No CVA tenderness. GENITOURINARY: Normal penis without concerning lesion. Penile prosthesis in place and appears to be partially inflated. Testes palpably normal. Meatus normal. EXTREMITIES: Right BKA. Left extremity, no edema. NEUROLOGIC: No focal deficits. LABORATORY DATA: Sodium 129, potassium 3.2, chloride 92, bicarb 23, BUN 62, and creatinine 4.04. RADIOLOGY DATA: CT of the abdomen and pelvis on 04/11/2020 demonstrates multiple high-density foci in the bladder. These films were reviewed and agreed with radiologist's interpretation. ASSESSMENT: A 69-year-old male with gross hematuria and clot urinary retention of unclear etiology. PLAN: Upon evaluation of the patient, the clinical situation was discussed with him. It was recommended that a hematuria catheter be placed. This was performed under sterile conditions at the bedside using a 20-Syriac Nicole hematuria catheter. This immediately resulted in drainage of 1100 mL of bloody urine. This catheter was manually irrigated and several clots were irrigated out of the patient's bladder, it was irrigated until clear. Continuous bladder irrigation was initiated, and this was clear after the procedure was performed. At this point, we will keep the Olivera catheter in place for now. His urine is now clear. There does appear to be any acute bleeding. The patient has history of chronic incomplete bladder emptying. He will likely need this Olivera catheter for the time being and monitor his renal function. He can follow up with his primary urologist as an outpatient for voiding trial. Potential cystoscopy for complete workup of his hematuria. Job ID: [id number]
[2020-04-12] MEDS: Tamsulosin HCl 0.4 MG CAP PO SCH (21:49)
[2020-04-13 06:26] LABS: #Lymphocytes 0.9 thou/uL (1.20-3.40); #Monocytes 0.5 thou/uL (0.11-0.59); #Neutrophils 7.2 thou/uL (1.40-6.50); %Basophils 0.1 % (0.0-1.0); %Lymphocytes 10.2 % (21.0-51.0); %Monocytes 5.2 % (0.0-10.0); %Neutrophils 84.4 % (42.0-75.0); Hemoglobin 9.4 g/dL (14.0-18.0); Mean Corpuscular HGB CONC 31.8 g/dL (32.0-36.0); Mean Corpuscular Hemoglobin 28.7 pg (27.0-31.0); Mean Corpuscular Volume 90.5 fL (78.0-98.0); Mean Platelet Volume 7.5 fL (7.4-10.4); Platelet Count 456 thou/uL (130-400); RBC Distribution Width 16.2 % (11.5-14.5); Red Blood Cell (RBC) Count 3.28 mill/uL (4.70-6.10); White Blood Cell (WBC) Count 8.6 thou/uL (4.8-10.8)
[2020-04-13 06:46] LABS: Anion Gap 19 mmol/L (10-20); BUN (Urea Nitrogen) 67 mg/dL (8.4-25.7); Calc. Creatinine Clearance 14 mL/min (70-130); Calcium 6.7 mg/dL (7.8-10.44); Carbon Dioxide 23 mmol/L (23-31); Chloride 90 mmol/L (98-107); Glucose 286 mg/dL (80-115); Potassium 3.2 mmol/L (3.5-5.1); Sodium 129 mmol/L (136-145)
[2020-04-13] MEDS: HumaLOG 300 UNITS/3 ML VIAL SC PRN ×2 (07:09→11:43)
--- NOTE | 2020-04-13 08:05 | PRG ---
DATE OF SERVICE: 04/13/2020 SERVICE: Renal Medicine. SUBJECTIVE: Mr. Moore is a 69-year-old white male, who was admitted due to COVID-19 pneumonia. We are following him up for his acute kidney injury on top of his chronic renal failure. When initially came, he was complaining of mild shortness of breath. IV Lasix was given. However, this aggravated his renal function and is placed on hold. He also was seen by Urology and had a Olivera catheter placed and underwent a bladder lavage for the clots noted on his bladder. He voices no new complaints today. He denies any chest pain or shortness of breath. OBJECTIVE: VITAL SIGNS: Blood pressure 111/60, heart rate 72, respiratory rate 20, temperature 98, and O2 saturation 92%. GENERAL: Awake, alert, comfortable, not in overt distress. SKIN: Adequate turgor. HEENT: He has slightly pale conjunctivae. Anicteric sclerae. No neck mass. No carotid bruits. No JVD. CHEST: No deformities. LUNGS: Decreased breath sounds. HEART: Normal sinus rhythm. No murmurs. No gallops. No rubs. ABDOMEN: Globular, soft, nontender. No masses. EXTREMITIES: No edema. Status post right BKA. MEDICATIONS: April 13, 2020, reviewed. LABORATORY DATA: April 13, 2020; white count 8.6, hemoglobin 9.4. Sodium 129, potassium 3.2, chloride 90, carbon dioxide 23, BUN 67, creatinine 4.27, glucose 286, and calcium 6.7. Hemoglobin 9.4. ASSESSMENT AND PLAN: 1. Anemia. Continuing weekly Epogen. 2. Acute kidney injury on top of his chronic renal failure. Lasix has been discontinued. We will give albumin 25 g IV q.6 x4 doses. No indication for any dialytic intervention with this patient at the present time. 3. Mild hypokalemia. We will continue to observe. 4. Gross hematuria - status post urinary bladder lavage. Urology is following. We will recheck CBC, basic metabolic panel in a.m. Job ID: [id number]
[2020-04-13] MEDS: Albumin 25% 25 GM/100 ML BOT IVPB SCH ×4 (08:21→22:25)
[2020-04-13] MEDS: Benzonatate 100 MG CAP PO SCH ×3 (08:22→20:00)
[2020-04-13] MEDS: Zinc Sulfate 220 MG CAP PO SCH (08:23)
[2020-04-13] MEDS: Sodium Bicarbonate Tab 325 MG TAB PO SCH ×3 (08:23→19:59)
[2020-04-13] MEDS: Amlodipine 10 MG TAB PO SCH (08:23)
[2020-04-13] MEDS: Dexamethasone 4 mg/ml Vial SLOW IVP SCH (08:23)
[2020-04-13] MEDS: Metoprolol Tartrate 50 MG TAB PO SCH ×2 (08:24→20:00)
[2020-04-13] MEDS: Ascorbic Acid 500 mg Chewable Tablet PO SCH (08:24)
[2020-04-13] MEDS: NPH, Human Insulin Isophane 300 UNIT/3 ML VIAL SC SCH ×2 (08:25→20:00)
[2020-04-13] MEDS: cycloSPORINE 0.05% Ophthalmic Droperette EA EYE SCH ×2 (08:57→20:58)
[2020-04-13] MEDS: Cholecalciferol 1,000 UNITS (25 MCG) TAB PO SCH (08:57)
[2020-04-13] MEDS: Gabapentin 300 MG CAP PO SCH (11:42)
[2020-04-13] MEDS: Clotrimazole 1 % Cream 30 GM TUBE TOP SCH ×2 (12:48→20:07)
--- NOTE | 2020-04-13 14:43 | PDOC.HOSPP ---
- Subjective Encounter Date: 04/13/20 - Objective Vital Signs & Weight: Vital Signs (12 hours) Temp Pulse Resp BP BP Pulse Ox 04/13/20 11:10 98.3 F 67 20 128/77 91 L 04/13/20 08:23 72 148/62 H 04/13/20 08:12 93 L 04/13/20 07:58 98.4 F 72 20 148/62 H 93 L 04/13/20 04:00 68 20 122/60 93 L Weight Admit Weight 129 lb 12.8 oz Weight 129 lb 12.8 oz I&O: 04/12/20 04/13/20 04/14/20 06:59 06:59 06:59 Intake Total 1244 1440 200 Output Total 8149 2939 950 Balance -449 -9432 -814 Result Diagrams: 04/13/20 06:12 04/13/20 06:12 Additional Labs: Accuchecks 04/13/20 04/12/20 04/12/20 10:51 21:55 17:34 POC Glucose 205 H 331 H 274 H Hospitalist ROS - Medication Medications: Active Medications Generic Name Dose Route Start Last Admin Trade Name Dylonq PRN Reason Stop Dose Admin Albumin Human 25 gm 04/13/20 08:00 04/13/20 13:41 Albumin 25% 25 Gm/100 Ml Bot IVPB 04/13/20 23:01 25 gm Q5H GADIEL Administration Amlodipine Besylate 10 mg 04/11/20 09:00 04/13/20 08:23 Amlodipine 10 Mg Tab PO 10 mg DAILY GADIEL Administration Ascorbic Acid 1,000 mg 04/12/20 09:00 04/13/20 08:24 Ascorbic Acid 500 Mg Chewable Tablet PO 1,000 mg DAILY GADIEL Administration Benzonatate 100 mg 04/11/20 15:00 04/13/20 14:13 Benzonatate 100 Mg Cap PO 100 mg TID GADIEL Administration Cholecalciferol 2,000 units 04/12/20 09:00 04/13/20 08:57 Cholecalciferol 1,000 Units (25 Mcg) Tab PO 2,000 units DAILY GADIEL Administration Clotrimazole 0 gm 04/11/20 21:00 04/13/20 12:48 Clotrimazole 1 % Cream 30 Gm Tube TOP Not Given BID GADIEL Cyclosporine 0 ml 04/11/20 21:00 04/13/20 08:57 Cyclosporine 0.05% Ophthalmic Droperette EA EYE 0.4 ml BID GADIEL Administration Dexamethasone 6 mg 04/12/20 09:00 04/13/20 08:23 Dexamethasone 4 Mg/Ml Vial SLOW IVP 6 mg DAILY GADIEL Administration Epoetin Lars-epbx 7,500 unit 04/12/20 12:00 04/12/20 13:04 Epoetin Lars-Epbx (Esrd) 4,000 Unit/Ml Vial SC 7,500 unit Q7D GADIEL Administration Gabapentin 300 mg 04/11/20 11:00 04/13/20 11:42 Gabapentin 300 Mg Cap PO 300 mg Q2DAYS GADIEL Administration Insulin Human Lispro 0 units 04/12/20 15:07 04/13/20 11:43 Humalog 300 Units/3 Ml Vial SC 6 unit .AGGRESSIVE SLIDING PRN Administration Aggressive Correctional Scale Insulin Human Lispro 0 units 04/12/20 22:45 04/12/20 23:34 Humalog 300 Units/3 Ml Vial SC 4 unit .BEDTIME SLIDING SC PRN Administration BEDTIME SLIDING SCALE Protocol Insulin Human NPH 5 unit 04/11/20 21:00 04/13/20 08:25 Nph, Human Insulin Isophane 300 Unit/3 Ml Vial SC 5 unit BID GADIEL Administration Metoprolol Tartrate 50 mg 04/11/20 21:00 04/13/20 08:24 Metoprolol Tartrate 50 Mg Tab PO 50 mg BID GADIEL Administration Pantoprazole Sodium 40 mg 04/12/20 09:00 04/13/20 08:24 Pantoprazole 40 Mg Tab PO 40 mg DAILY GADIEL Administration Sodium Bicarbonate 650 mg 04/11/20 15:00 04/13/20 14:13 Sodium Bicarbonate Tab 325 Mg Tab PO 650 mg TID GADIEL Administration Tamsulosin HCl 0.4 mg 04/11/20 21:00 04/12/20 21:49 Tamsulosin Hcl 0.4 Mg Cap PO 0.4 mg HS GADIEL Administration Zinc Sulfate 220 mg 04/12/20 09:00 04/13/20 08:23 Zinc Sulfate 220 Mg Cap PO 220 mg DAILY GADIEL Administration - Exam General Appearance: awake alert ENT: normocephalic atraumatic Neck: supple, no JVD Heart: RRR Respiratory: normal chest expansion, no tachypnea Extremities: no cyanosis Neurological: cranial nerve grossly intact Hosp A/P (1) Acute respiratory failure with hypoxia Code(s): J96.01 - ACUTE RESPIRATORY FAILURE WITH HYPOXIA Status: Acute (2) Hematuria Code(s): R31.9 - HEMATURIA, UNSPECIFIED Status: Acute (3) CAD (coronary artery disease) Code(s): I25.10 - ATHSCL HEART DISEASE OF [place] CORONARY ARTERY W/O ANG PCTRS Status: Acute (4) Chronic renal failure Status: Acute (5) Chronic kidney disease, stage IV (severe) Code(s): N18.4 - CHRONIC KIDNEY DISEASE, STAGE 4 (SEVERE) Status: Chronic - Plan Hematuria with evidence of clots in the urinary bladder on imaging. Bladder irrigation per urology. Continue supplemental oxygen and dexamethasone. Anticoagulation on hold due to bleeding. Diuretics on hold due to worsening kidney function. Patient is receiving albumin. Sugar levels are uncontrolled. Continue aggressive sliding scale and start Lantus 10 units nightly.
--- NOTE | 2020-04-13 16:39 | PRG ---
DATE OF SERVICE: 04/13/2020 SUBJECTIVE: The patient overall is doing well. His CBI was weaned overnight. He has had no clots. No manual irrigation of his catheter has been required. He is not complaining of shortness of breath. He was moved over to [place] [id number]. No other complaints. OBJECTIVE: VITAL SIGNS: Blood pressure 111/60, heart rate 72, respirations 18, temperature 98, and oxygen saturation 92%. GENERAL: Awake, alert, in no apparent distress. CARDIOVASCULAR: Regular rhythm. PULMONARY: Breathing unlabored. ABDOMEN: Soft, nontender/nondistended. No masses or organomegaly. No suprapubic tenderness to palpation. No CVA tenderness. GENITOURINARY: Three-way Olivera catheter is in place draining clear yellow urine on low rate CBI. EXTREMITIES: Status post right BKA. No edema. LABORATORY DATA: White count 8.6, hemoglobin 9.4. Sodium 129, potassium 3.2, chloride 90, bicarb 23, BUN 67, and creatinine 4.27. ASSESSMENT: A 69-year-old male with urinary retention, gross hematuria, clot retention, status post placement of hematuria catheter and evacuation of blood clot. The patient's urine does not demonstrate any ongoing hematuria. Stop CBI for now, can restart as necessary and manually irrigate his catheter as necessary. We would recommend leaving Olivera catheter in place at this time given the fact that the patient had 1100 mL in his bladder when it was initially placed. The patient sees Dr. Dunbar as an outpatient, and once he is back on service on Wednesday, I will discuss this case with him and coordinate followup care for this patient. Job ID: [id number]
[2020-04-13] MEDS: Tamsulosin HCl 0.4 MG CAP PO SCH (20:00)
[2020-04-13] MEDS: Insulin Glargine 10 UNITS in Pre-Filled Syringe SC SCH (20:07)
[2020-04-14] MEDS: HumaLOG 300 UNITS/3 ML VIAL SC PRN ×2 (05:25→18:26)
[2020-04-14 06:57] LABS: #Lymphocytes 1.2 thou/uL (1.20-3.40); #Monocytes 0.4 thou/uL (0.11-0.59); #Neutrophils 11.8 thou/uL (1.40-6.50); %Basophils 0.1 % (0.0-1.0); %Eosinophils 0.1 % (0.0-10.0); %Lymphocytes 9.1 % (21.0-51.0); %Neutrophils 87.8 % (42.0-75.0); Mean Corpuscular Hemoglobin 28.7 pg (27.0-31.0); Mean Corpuscular Volume 89.8 fL (78.0-98.0); Mean Platelet Volume 7.5 fL (7.4-10.4); Platelet Count 430 thou/uL (130-400); RBC Distribution Width 16.3 % (11.5-14.5); Red Blood Cell (RBC) Count 3.13 mill/uL (4.70-6.10); White Blood Cell (WBC) Count 13.4 thou/uL (4.8-10.8)
[2020-04-14 07:18] LABS: Anion Gap 19 mmol/L (10-20); BUN (Urea Nitrogen) 71 mg/dL (8.4-25.7); Calc. Creatinine Clearance 14 mL/min (70-130); Calcium 6.8 mg/dL (7.8-10.44); Carbon Dioxide 24 mmol/L (23-31); Chloride 91 mmol/L (98-107); Glucose 168 mg/dL (80-115); Sodium 131 mmol/L (136-145)
[2020-04-14] MEDS: NPH, Human Insulin Isophane 300 UNIT/3 ML VIAL SC SCH ×2 (08:18→21:08)
[2020-04-14] MEDS: Dexamethasone 4 mg/ml Vial SLOW IVP SCH (08:19)
[2020-04-14] MEDS: Sodium Bicarbonate Tab 325 MG TAB PO SCH ×3 (08:20→21:06)
[2020-04-14] MEDS: Ascorbic Acid 500 mg Chewable Tablet PO SCH (08:20)
[2020-04-14] MEDS: Benzonatate 100 MG CAP PO SCH ×3 (08:20→21:06)
[2020-04-14] MEDS: Metoprolol Tartrate 50 MG TAB PO SCH ×2 (08:21→21:06)
[2020-04-14] MEDS: cycloSPORINE 0.05% Ophthalmic Droperette EA EYE SCH ×2 (08:21→21:07)
[2020-04-14] MEDS: Cholecalciferol 1,000 UNITS (25 MCG) TAB PO SCH (08:21)
[2020-04-14] MEDS: Amlodipine 10 MG TAB PO SCH (08:21)
[2020-04-14] MEDS: Zinc Sulfate 220 MG CAP PO SCH (08:21)
[2020-04-14] MEDS: Clotrimazole 1 % Cream 30 GM TUBE TOP SCH ×2 (09:00→21:07)
[2020-04-14] MEDS ORDERED: Potassium Chloride 20 MEQ TAB PO SCH (12:00)
--- NOTE | 2020-04-14 12:10 | PRG ---
DATE OF SERVICE: 04/14/2020 SUBJECTIVE: Mr. Moore is a 69-year-old white male with chronic renal failure from diabetic nephropathy. He was recently diagnosed with COVID-19 pneumonia. We are following him up for his acute kidney injury on top of his chronic renal failure. He did receive albumin infusion due to the worsening creatinine. This morning, his creatinine is relatively stable and seems to be plateauing. No new complaints. He denies any chest pain or shortness of breath. OBJECTIVE: VITAL SIGNS: Blood pressure 135/70, heart rate 65, respiratory rate 18, temperature 97.4, O2 saturation 93%. GENERAL: The patient is awake, comfortable, not in overt distress. SKIN: Adequate turgor. HEENT: Slightly pale conjunctivae. Anicteric sclerae. No neck mass. No carotid bruits. No JVD. CHEST: No deformities. LUNGS: Bibasilar crackles. HEART: Normal sinus rhythm. No murmur. No gallops. No rubs. ABDOMEN: Globular, soft, nontender. No masses. EXTREMITIES: No edema, status post right BKA. MEDICATIONS: Medications of April 13, 2020, was reviewed. LABORATORY DATA: Laboratories of April 14, 2020; white count 13.4, hemoglobin 9. Sodium 131, potassium 3, chloride 91, carbon dioxide 24, BUN 71, creatinine 4.38, GFR 14 mL/minute, calcium is 6.8. ASSESSMENT AND PLAN: 1. Acute kidney injury/chronic renal failure, superimposed prerenal azotemia. Renal function is plateauing. GFR is 14 mL/minute. We will give another albumin infusion x4 more doses. No indication for any emergency dialysis. 2. Anemia. Continue weekly Epogen. 3. Mild mgohycxsmfl-A-Boz 20 mEq one tab will be given. 4. COVID-19 pneumonia. Continuing supportive care. Overall, prognosis remains guarded with this patient. 5. Recheck CBC and basic metabolic profile in a.m. Job ID: [id number]
[2020-04-14] MEDS: Albumin 25% 25 GM/100 ML BOT IVPB SCH ×2 (12:53→18:19)
[2020-04-14] MEDS: Calcium Acetate 667 MG CAP PO SCH ×2 (12:53→18:17)
--- NOTE | 2020-04-14 18:38 | PDOC.HOSPP ---
- Subjective Encounter Date: 04/14/20 - Objective Vital Signs & Weight: Vital Signs (12 hours) Temp Pulse Resp BP Pulse Ox 04/14/20 12:00 97.5 F L 66 16 129/64 93 L 04/14/20 08:00 97.4 F L 65 18 135/70 93 L Weight Admit Weight 129 lb 12.8 oz Weight 129 lb 12.8 oz I&O: 04/13/20 04/14/20 04/15/20 06:59 06:59 06:59 Intake Total 1440 1130 Output Total 4300 2150 Balance -2860 -1020 Result Diagrams: 04/14/20 06:38 04/14/20 06:38 Additional Labs: Accuchecks 04/14/20 04/14/20 04/14/20 18:24 13:00 05:23 POC Glucose 331 H 89 193 H 04/13/20 19:48 POC Glucose 248 H Hospitalist ROS - Medication Medications: Active Medications Generic Name Dose Route Start Last Admin Trade Name Freq PRN Reason Stop Dose Admin Albumin Human 25 gm 04/14/20 12:00 04/14/20 18:19 Albumin 25% 25 Gm/100 Ml Bot IVPB 04/15/20 06:01 25 gm Q6HR GADIEL Administration Amlodipine Besylate 10 mg 04/11/20 09:00 04/14/20 08:21 Amlodipine 10 Mg Tab PO 10 mg DAILY GADIEL Administration Ascorbic Acid 1,000 mg 04/12/20 09:00 04/14/20 08:20 Ascorbic Acid 500 Mg Chewable Tablet PO 1,000 mg DAILY GADIEL Administration Benzonatate 100 mg 04/11/20 15:00 04/14/20 16:10 Benzonatate 100 Mg Cap PO 100 mg TID GADIEL Administration Calcium Acetate 1,334 mg 04/14/20 12:00 04/14/20 18:17 Calcium Acetate 667 Mg Cap PO 1,334 mg TID-WM GADIEL Administration Cholecalciferol 2,000 units 04/12/20 09:00 04/14/20 08:21 Cholecalciferol 1,000 Units (25 Mcg) Tab PO 2,000 units DAILY GADIEL Administration Clotrimazole 0 gm 04/11/20 21:00 04/14/20 09:00 Clotrimazole 1 % Cream 30 Gm Tube TOP Not Given BID GADIEL Cyclosporine 0 ml 04/11/20 21:00 04/14/20 08:21 Cyclosporine 0.05% Ophthalmic Droperette EA EYE 0.4 ml BID GADIEL Administration Dexamethasone 6 mg 04/12/20 09:00 04/14/20 08:19 Dexamethasone 4 Mg/Ml Vial SLOW IVP 6 mg DAILY GADIEL Administration Epoetin Lars-epbx 7,500 unit 04/12/20 12:00 04/12/20 13:04 Epoetin Lars-Epbx (Esrd) 4,000 Unit/Ml Vial SC 7,500 unit Q7D GADIEL Administration Gabapentin 300 mg 04/11/20 11:00 04/13/20 11:42 Gabapentin 300 Mg Cap PO 300 mg Q2DAYS GADIEL Administration Insulin Glargine 10 units/ 0.1 mls @ 0 mls/hr 04/13/20 21:00 04/13/20 20:07 Miscellaneous Medication SC 0.1 mls HS GADIEL Administration Insulin Human Lispro 0 units 04/12/20 15:07 04/14/20 18:26 Humalog 300 Units/3 Ml Vial SC 11 unit .AGGRESSIVE SLIDING PRN Administration Aggressive Correctional Scale Insulin Human Lispro 0 units 04/12/20 22:45 04/12/20 23:34 Humalog 300 Units/3 Ml Vial SC 4 unit .BEDTIME SLIDING SC PRN Administration BEDTIME SLIDING SCALE Protocol Insulin Human NPH 5 unit 04/11/20 21:00 04/14/20 08:18 Nph, Human Insulin Isophane 300 Unit/3 Ml Vial SC 5 unit BID GADIEL Administration Metoprolol Tartrate 50 mg 04/11/20 21:00 04/14/20 08:21 Metoprolol Tartrate 50 Mg Tab PO 50 mg BID GADIEL Administration Pantoprazole Sodium 40 mg 04/12/20 09:00 04/14/20 08:20 Pantoprazole 40 Mg Tab PO 40 mg DAILY GADIEL Administration Sodium Bicarbonate 650 mg 04/11/20 15:00 04/14/20 18:18 Sodium Bicarbonate Tab 325 Mg Tab PO 650 mg TID GADIEL Administration Tamsulosin HCl 0.4 mg 04/11/20 21:00 04/13/20 20:00 Tamsulosin Hcl 0.4 Mg Cap PO 0.4 mg HS GADIEL Administration Zinc Sulfate 220 mg 04/12/20 09:00 04/14/20 08:21 Zinc Sulfate 220 Mg Cap PO 220 mg DAILY GADIEL Administration - Exam ENT: normocephalic atraumatic Respiratory: normal chest expansion, no tachypnea Extremities: no cyanosis, no clubbing Hosp A/P (1) Acute respiratory failure with hypoxia Code(s): J96.01 - ACUTE RESPIRATORY FAILURE WITH HYPOXIA Status: Acute (2) Hematuria Code(s): R31.9 - HEMATURIA, UNSPECIFIED Status: Acute (3) CAD (coronary artery disease) Code(s): I25.10 - ATHSCL HEART DISEASE OF [place] CORONARY ARTERY W/O ANG PCTRS Status: Acute (4) Chronic renal failure Status: Acute (5) Chronic kidney disease, stage IV (severe) Code(s): N18.4 - CHRONIC KIDNEY DISEASE, STAGE 4 (SEVERE) Status: Chronic - Plan Hematuria with evidence of clots in the urinary bladder on imaging. S/P CBI. no evidence of active bleeding. CBI discontinued and flynn remains for urine retention. Continue supplemental oxygen and dexamethasone. Anticoagulation on hold due to recent bleeding. Diuretics on hold due to worsening kidney function. Patient is receiving albumin. Sugar levels are better controlled. Continue aggressive sliding scale and Lantus 10 units nightly.
[2020-04-14] MEDS: Tamsulosin HCl 0.4 MG CAP PO SCH (21:06)
[2020-04-14] MEDS: Insulin Glargine 10 UNITS in Pre-Filled Syringe SC SCH (21:15)
[2020-04-15] MEDS: Albumin 25% 25 GM/100 ML BOT IVPB SCH ×2 (00:22→05:08)
[2020-04-15] MEDS: HumaLOG 300 UNITS/3 ML VIAL SC PRN ×3 (05:08→20:21)
[2020-04-15 06:33] LABS: #Monocytes 0.2 thou/uL (0.11-0.59); #Neutrophils 11.7 thou/uL (1.40-6.50); %Eosinophils 0.1 % (0.0-10.0); %Lymphocytes 7.4 % (21.0-51.0); %Monocytes 1.6 % (0.0-10.0); %Neutrophils 90.9 % (42.0-75.0); Hemoglobin 8.5 g/dL (14.0-18.0); Mean Corpuscular HGB CONC 32.2 g/dL (32.0-36.0); Mean Platelet Volume 7.7 fL (7.4-10.4); Platelet Count 382 thou/uL (130-400); RBC Distribution Width 16.4 % (11.5-14.5); Red Blood Cell (RBC) Count 2.92 mill/uL (4.70-6.10); White Blood Cell (WBC) Count 12.9 thou/uL (4.8-10.8)
[2020-04-15 06:46] LABS: Anion Gap 18 mmol/L (10-20); BUN (Urea Nitrogen) 70 mg/dL (8.4-25.7); Calc. Creatinine Clearance 13 mL/min (70-130); Calcium 6.9 mg/dL (7.8-10.44); Carbon Dioxide 25 mmol/L (23-31); Chloride 93 mmol/L (98-107); Glucose 245 mg/dL (80-115); Potassium 3.5 mmol/L (3.5-5.1); Sodium 132 mmol/L (136-145)
[2020-04-15 06:47] LABS: Phosphorus 5.4 mg/dL (2.3-4.7)
[2020-04-15] MEDS: Calcium Acetate 667 MG CAP PO SCH ×3 (09:23→16:06)
[2020-04-15] MEDS: Metoprolol Tartrate 50 MG TAB PO SCH ×2 (09:23→20:18)
[2020-04-15] MEDS: Amlodipine 10 MG TAB PO SCH (09:23)
[2020-04-15] MEDS: Benzonatate 100 MG CAP PO SCH ×3 (09:23→20:18)
[2020-04-15] MEDS: NPH, Human Insulin Isophane 300 UNIT/3 ML VIAL SC SCH ×2 (09:24→20:20)
[2020-04-15] MEDS: Dexamethasone 4 mg/ml Vial SLOW IVP SCH (09:24)
[2020-04-15] MEDS: Clotrimazole 1 % Cream 30 GM TUBE TOP SCH ×2 (09:24→21:18)
[2020-04-15] MEDS: Sodium Bicarbonate Tab 325 MG TAB PO SCH ×3 (09:24→20:18)
[2020-04-15] MEDS: Zinc Sulfate 220 MG CAP PO SCH (09:25)
[2020-04-15] MEDS: Gabapentin 300 MG CAP PO SCH (09:25)
[2020-04-15] MEDS ORDERED: Furosemide 100 MG/10 ML VIAL SLOW IVP SCH (09:30)
[2020-04-15] MEDS: cycloSPORINE 0.05% Ophthalmic Droperette EA EYE SCH ×2 (09:50→21:18)
[2020-04-15] MEDS: Ascorbic Acid 500 mg Chewable Tablet PO SCH (10:29)
--- NOTE | 2020-04-15 10:30 | PRG ---
DATE OF SERVICE: 04/15/2020 SUBJECTIVE: Mr. Moore is a 69-year-old white male with chronic renal failure from diabetic nephropathy and was recently admitted for COVID-19 pneumonia. Exam has been suggestive of more crackles. A chest x-ray will be done again today. I did discuss the case with the hospitalist, who will consider starting him on Lasix. The patient has declined dialysis for the moment. OBJECTIVE: VITAL SIGNS: Blood pressure 123/66, heart rate 76, respiratory rate 18, temperature 97.7, O2 saturation 96%. GENERAL: Patient is awake, alert, comfortable. SKIN: Adequate turgor. HEENT: Slightly pale conjunctivae. Anicteric sclerae. No neck mass. No carotid bruits. No JVD. CHEST: No deformities. LUNGS: Bibasilar crackles. HEART: Normal sinus rhythm. No murmur. No gallops. No rubs. ABDOMEN: Globular, soft, nontender. EXTREMITIES: No edema. Status post right BKA. MEDICATIONS: April 15, 2020, was reviewed. LABORATORY DATA: April 15, 2020; white count 12.9, hemoglobin 8.5. Sodium 132, potassium 3.5, chloride 93, carbon dioxide 25, BUN 70, creatinine 4.57. PTH 200. Calcium is 6.9. ASSESSMENT AND PLAN: 1. Anemia. Continuing weekly Epogen of 7500 units subcu every week. 2. Chronic renal failure from diabetic nephropathy. Creatinine now noted at 4.57, yesterday this was 4.38. Patient so far has declined proceeding with any dialytic intervention. GFR has dropped down from 14 to 13 mL/minute. Continue to observe. 3. Mild hypokalemia, improved with KCl tablet, currently at 3.5. 4. Coronavirus disease 2019 pneumonia. Continue supportive care. Chest x-ray to be done. p.r.n. Lasix as needed. We will recheck CBC, basic metabolic in a.m. Job ID: [id number]
--- NOTE | 2020-04-15 10:30 | RAD ---
PORTABLE CHEST: Date: 04/15/2020 INDICATION: COVID pneumonia. COMPARISON: 04/10/2020. FINDINGS: Hazy diffuse alveolar infiltrate now seen throughout the right lung. There is hazy infiltrate in the left mid and lower lung. Bilateral infiltrates have progressed when compared to 04/10/2020. IMPRESSION: Bilateral infiltrates more extensive in the right lung. Progression of bilateral infiltrates since pr ior exam. POS: OFF
--- NOTE | 2020-04-15 12:31 | PRG ---
DATE OF SERVICE: 04/15/2020 I reviewed his CAT scan. I reviewed Dr. Moya's reports. He had gross hematuria. His urine is now clear. He is not on any significant CBI anymore. He is in with COVID and he is on oxygen, and he was short of breath today. No other complaints are noted. His lab work showed his hemoglobin was 8.5. His white count was slightly elevated. His creatinine was 4.57. He has a history of chronic renal insufficiency. He does not have any hydro on his CAT scan. Urine culture had just a presumptive Tami species in 25,000 to 50,000. If his urine remains clear, I think we can change his catheter out to a smaller catheter perhaps tomorrow. We will leave it in for probably a week or so because of how much bladder distention he had when it was initially placed. Job ID: [id number]
--- NOTE | 2020-04-15 16:16 | PDOC.HOSPP ---
- Subjective Encounter Date: 04/15/20 - Objective Vital Signs & Weight: Vital Signs (12 hours) Temp Pulse Resp BP Pulse Ox 04/15/20 12:20 98.3 F 73 16 130/65 94 L 04/15/20 12:18 94 L 04/15/20 09:25 82 L 04/15/20 09:23 76 04/15/20 07:55 98 F 82 16 128/65 82 L Weight Admit Weight 129 lb 12.8 oz Weight 129 lb 12.8 oz I&O: 04/14/20 04/15/20 04/16/20 06:59 06:59 06:59 Intake Total 1130 4390 Output Total 2150 4000 Balance -1020 390 Result Diagrams: 04/15/20 06:02 04/15/20 06:02 Additional Labs: Accuchecks 04/15/20 04/14/20 04/14/20 04:53 20:08 18:24 POC Glucose 267 H 327 H 331 H Hospitalist ROS - Medication Medications: Active Medications Generic Name Dose Route Start Last Admin Trade Name [place] PRN Reason Stop Dose Admin Amlodipine Besylate 10 mg 04/11/20 09:00 04/15/20 09:23 Amlodipine 10 Mg Tab PO 10 mg DAILY GADIEL Administration Ascorbic Acid 1,000 mg 04/12/20 09:00 04/15/20 10:29 Ascorbic Acid 500 Mg Chewable Tablet PO 1,000 mg DAILY GADIEL Administration Benzonatate 100 mg 04/11/20 15:00 04/15/20 16:07 Benzonatate 100 Mg Cap PO 100 mg TID GADIEL Administration Calcium Acetate 1,334 mg 04/14/20 12:00 04/15/20 16:06 Calcium Acetate 667 Mg Cap PO 1,334 mg TID- GADIEL Administration Cholecalciferol 2,000 units 04/12/20 09:00 04/14/20 08:21 Cholecalciferol 1,000 Units (25 Mcg) Tab PO 2,000 units DAILY GADIEL Administration Clotrimazole 0 gm 04/11/20 21:00 04/15/20 09:24 Clotrimazole 1 % Cream 30 Gm Tube TOP Not Given BID GADIEL Cyclosporine 0 ml 04/11/20 21:00 04/14/20 21:07 Cyclosporine 0.05% Ophthalmic Droperette EA EYE 0.4 ml BID GADIEL Administration Dexamethasone 6 mg 04/12/20 09:00 04/15/20 09:24 Dexamethasone 4 Mg/Ml Vial SLOW IVP 6 mg DAILY GADIEL Administration Epoetin Lars-epbx 7,500 unit 04/12/20 12:00 04/12/20 13:04 Epoetin Lars-Epbx (Esrd) 4,000 Unit/Ml Vial SC 7,500 unit Q7D GADIEL Administration Gabapentin 300 mg 04/11/20 11:00 04/15/20 09:25 Gabapentin 300 Mg Cap PO 300 mg Q2DAYS GADIEL Administration Insulin Glargine 10 units/ 0.1 mls @ 0 mls/hr 04/13/20 21:00 04/14/20 21:15 Miscellaneous Medication SC 0.1 mls HS GADIEL Administration Insulin Human Lispro 0 units 04/12/20 15:07 04/15/20 05:08 Humalog 300 Units/3 Ml Vial SC 9 unit .AGGRESSIVE SLIDING PRN Administration Aggressive Correctional Scale Insulin Human Lispro 0 units 04/12/20 22:45 04/12/20 23:34 Humalog 300 Units/3 Ml Vial SC 4 unit .BEDTIME SLIDING SC PRN Administration BEDTIME SLIDING SCALE Protocol Insulin Human NPH 5 unit 04/11/20 21:00 04/15/20 09:24 Nph, Human Insulin Isophane 300 Unit/3 Ml Vial SC 5 unit BID GADIEL Administration Metoprolol Tartrate 50 mg 04/11/20 21:00 04/15/20 09:23 Metoprolol Tartrate 50 Mg Tab PO 50 mg BID GADIEL Administration Pantoprazole Sodium 40 mg 04/12/20 09:00 04/15/20 09:23 Pantoprazole 40 Mg Tab PO 40 mg DAILY GADIEL Administration Sodium Bicarbonate 650 mg 04/11/20 15:00 04/15/20 16:06 Sodium Bicarbonate Tab 325 Mg Tab PO 650 mg TID GADIEL Administration Tamsulosin HCl 0.4 mg 04/11/20 21:00 04/14/20 21:06 Tamsulosin Hcl 0.4 Mg Cap PO 0.4 mg HS GADIEL Administration Zinc Sulfate 220 mg 04/12/20 09:00 04/15/20 09:25 Zinc Sulfate 220 Mg Cap PO 220 mg DAILY GADIEL Administration - Exam General Appearance: awake alert ENT: normocephalic atraumatic Neck: supple, no JVD Heart: RRR Respiratory: no tachypnea, rhonchi Extremities: no cyanosis, no clubbing Hosp A/P (1) Acute respiratory failure with hypoxia Code(s): J96.01 - ACUTE RESPIRATORY FAILURE WITH HYPOXIA Status: Acute (2) Hematuria Code(s): R31.9 - HEMATURIA, UNSPECIFIED Status: Acute (3) CAD (coronary artery disease) Code(s): I25.10 - ATHSCL HEART DISEASE OF [place] CORONARY ARTERY W/O ANG PCTRS Status: Acute (4) Chronic renal failure Status: Acute (5) Chronic kidney disease, stage IV (severe) Code(s): N18.4 - CHRONIC KIDNEY DISEASE, STAGE 4 (SEVERE) Status: Chronic - Plan Hematuria with evidence of clots in the urinary bladder on imaging. S/P CBI. no evidence of active bleeding. CBI discontinued and flynn remains for urine retention. Continue supplemental oxygen and dexamethasone. The patient is having worsening shortness of breath and crackles on examination. Chest x-ray showing worsening bilateral infiltrates. The dose of Lasix has been given. Anticoagulation on hold due to recent bleeding. Sugar levels are better controlled. Continue aggressive sliding scale and Lantus 10 units nightly.
[2020-04-15] MEDS: Cholecalciferol 1,000 UNITS (25 MCG) TAB PO SCH (17:47)
[2020-04-15] MEDS: Tamsulosin HCl 0.4 MG CAP PO SCH (20:18)
[2020-04-15] MEDS: Insulin Glargine 10 UNITS in Pre-Filled Syringe SC SCH (20:19)
[2020-04-16] MEDS ORDERED: Acetaminophen 325 MG TAB PO PRN (04:58)
[2020-04-16 06:48] LABS: #Lymphocytes 0.9 thou/uL (1.20-3.40); #Monocytes 0.1 thou/uL (0.11-0.59); %Eosinophils 0.1 % (0.0-10.0); %Lymphocytes 5.5 % (21.0-51.0); %Monocytes 0.9 % (0.0-10.0); %Neutrophils 93.5 % (42.0-75.0); Hemoglobin 9.3 g/dL (14.0-18.0); Mean Corpuscular HGB CONC 32.2 g/dL (32.0-36.0); Mean Corpuscular Hemoglobin 28.8 pg (27.0-31.0); Mean Corpuscular Volume 89.4 fL (78.0-98.0); Mean Platelet Volume 7.6 fL (7.4-10.4); Platelet Count 394 thou/uL (130-400); RBC Distribution Width 16.6 % (11.5-14.5); Red Blood Cell (RBC) Count 3.25 mill/uL (4.70-6.10); White Blood Cell (WBC) Count 16.1 thou/uL (4.8-10.8)
[2020-04-16 07:13] LABS: Anion Gap 21 mmol/L (10-20); BUN (Urea Nitrogen) 75 mg/dL (8.4-25.7); Calc. Creatinine Clearance 13 mL/min (70-130); Calcium 7.1 mg/dL (7.8-10.44); Carbon Dioxide 24 mmol/L (23-31); Chloride 89 mmol/L (98-107); Glucose 222 mg/dL (80-115); Potassium 3.8 mmol/L (3.5-5.1); Sodium 130 mmol/L (136-145)
[2020-04-16] MEDS: Calcium Acetate 667 MG CAP PO SCH ×3 (08:41→16:00)
[2020-04-16] MEDS: Sodium Bicarbonate Tab 325 MG TAB PO SCH ×3 (08:42→20:30)
[2020-04-16] MEDS: Zinc Sulfate 220 MG CAP PO SCH (08:42)
[2020-04-16] MEDS: Benzonatate 100 MG CAP PO SCH ×3 (08:43→20:31)
[2020-04-16] MEDS: Cholecalciferol 1,000 UNITS (25 MCG) TAB PO SCH (08:43)
[2020-04-16] MEDS: Metoprolol Tartrate 50 MG TAB PO SCH ×2 (08:43→20:31)
[2020-04-16] MEDS: Amlodipine 10 MG TAB PO SCH (08:43)
[2020-04-16] MEDS: Dexamethasone 4 mg/ml Vial SLOW IVP SCH (08:44)
[2020-04-16] MEDS: Ascorbic Acid 500 mg Chewable Tablet PO SCH (08:44)
[2020-04-16] MEDS: NPH, Human Insulin Isophane 300 UNIT/3 ML VIAL SC SCH ×2 (08:46→20:29)
[2020-04-16] MEDS ORDERED: Furosemide 40 MG/4 ML VIAL SLOW IVP SCH (09:15)
--- NOTE | 2020-04-16 09:42 | PRG ---
DATE OF SERVICE: 04/16/2020 SUBJECTIVE: Mr. Moore is a 69-year-old white male with chronic renal failure from diabetic nephropathy, admitted for COVID-19 pneumonia. His lung findings have worsened. He is now being treated with p.r.n. IV Lasix. I have discussed about possible dialysis and the patient is still hesitant to consider this. However, I was able to convince him to continue to think about it. He voices no new complaints. He still has this mild shortness of breath. OBJECTIVE: VITAL SIGNS: Blood pressure 138/71, heart rate 75, respiratory rate 19, temperature 98.1, and O2 saturation 92%. GENERAL: The patient is awake, alert, sitting comfortable, not in overt distress. SKIN: Adequate turgor. HEENT: Pale conjunctivae. Anicteric sclerae. NECK: No neck mass. No carotid bruits. No JVD. CHEST: No deformities. LUNGS: Positive for bibasilar crackles. HEART: Normal sinus rhythm. No murmur. No gallops. No rubs. ABDOMEN: Globular, soft, and nontender. No masses. EXTREMITIES: No edema. No deformities. Please note, he is status post right BKA. MEDICATIONS: Medications of April 16, 2020, reviewed. LABORATORY DATA: Laboratories of April 16, 2020, white count 16.1 and hemoglobin 9.3. Sodium 130, potassium 3.8, chloride 89, carbon dioxide 24, BUN 75, creatinine 4.5, glucose 222, and calcium 7.1. ASSESSMENT AND PLAN: 1. Mild hypocalcemia, currently on calcium acetate and calcitriol. 2. Hyperphosphatemia, continuing Phoslo or calcium carbonate or calcium acetate. 3. Chronic renal failure from diabetic nephropathy, stable renal function. Creatinine is noted at 4.5 and yesterday this was 4.57. Agree with p.r.n. diuresis with this patient. Again, I had long discussion about dialytic intervention. He will think about it some more. 4. COVID-19 pneumonia. Continue supportive care. 5. Anemia on weekly Epogen. Recheck CBC and basic metabolic in a.m. Job ID: [id number] [id number]
[2020-04-16] MEDS: Clotrimazole 1 % Cream 30 GM TUBE TOP SCH ×2 (09:50→21:00)
[2020-04-16] MEDS: cycloSPORINE 0.05% Ophthalmic Droperette EA EYE SCH ×2 (09:50→21:00)
[2020-04-16] MEDS: HumaLOG 300 UNITS/3 ML VIAL SC PRN ×3 (12:10→20:30)
[2020-04-16] MEDS ORDERED: Sodium Bicarb 50 MEQ/50 ML Abboject 8.4% SYRINGE ONE (13:24)
[2020-04-16] MEDS ORDERED: EPINEPHrine 1 MG/10 ML Abboject SYRINGE ONE (13:24)
[2020-04-16] MEDS ORDERED: Calcium Chloride 1 GM/10 ML Abboject SYRINGE ONE (13:24)
--- NOTE | 2020-04-16 16:45 | PDOC.HOSPP ---
- Subjective Encounter Date: 04/16/20 - Objective Vital Signs & Weight: Vital Signs (12 hours) Temp Pulse Resp BP Pulse Ox 04/16/20 11:24 98 F 74 16 121/61 95 04/16/20 10:30 87 L 04/16/20 08:40 92 L 04/16/20 06:58 98.1 F 75 19 138/71 92 L Weight Admit Weight 129 lb 12.8 oz Weight 129 lb 12.8 oz I&O: 04/15/20 04/16/20 04/17/20 06:59 06:59 06:59 Intake Total 4750 Output Total 7400 2200 Balance -2650 -2200 Result Diagrams: 04/16/20 06:38 04/16/20 06:38 Additional Labs: Accuchecks 04/16/20 04/16/20 04/16/20 16:35 11:17 04:34 POC Glucose 304 H 257 H 226 H 04/15/20 19:59 POC Glucose 334 H Hospitalist ROS - Medication Medications: Active Medications Generic Name Dose Route Start Last Admin Trade Name Freq PRN Reason Stop Dose Admin Acetaminophen 650 mg 04/16/20 04:58 04/16/20 16:00 Acetaminophen 325 Mg Tab PO 650 mg Q4H PRN Administration Headache/Fever or Pain Amlodipine Besylate 10 mg 04/11/20 09:00 04/16/20 08:43 Amlodipine 10 Mg Tab PO 10 mg DAILY GADIEL Administration Ascorbic Acid 1,000 mg 04/12/20 09:00 04/16/20 08:44 Ascorbic Acid 500 Mg Chewable Tablet PO Not Given DAILY GADIEL Benzonatate 100 mg 04/11/20 15:00 04/16/20 15:59 Benzonatate 100 Mg Cap PO 100 mg TID GADIEL Administration Calcium Acetate 1,334 mg 04/14/20 12:00 04/16/20 16:00 Calcium Acetate 667 Mg Cap PO 1,334 mg TID-WM GADIEL Administration Cholecalciferol 2,000 units 04/12/20 09:00 04/16/20 08:43 Cholecalciferol 1,000 Units (25 Mcg) Tab PO 2,000 units DAILY GADIEL Administration Clotrimazole 0 gm 04/11/20 21:00 04/16/20 09:50 Clotrimazole 1 % Cream 30 Gm Tube TOP Not Given BID GADIEL Cyclosporine 0 ml 04/11/20 21:00 04/16/20 09:50 Cyclosporine 0.05% Ophthalmic Droperette EA EYE Not Given BID GADIEL Dexamethasone 6 mg 04/12/20 09:00 04/16/20 08:44 Dexamethasone 4 Mg/Ml Vial SLOW IVP 6 mg DAILY GADIEL Administration Epoetin Lars-epbx 7,500 unit 04/12/20 12:00 04/12/20 13:04 Epoetin Lars-Epbx (Esrd) 4,000 Unit/Ml Vial SC 7,500 unit Q7D GADIEL Administration Gabapentin 300 mg 04/11/20 11:00 04/15/20 09:25 Gabapentin 300 Mg Cap PO 300 mg Q2DAYS GADIEL Administration Insulin Glargine 10 units/ 0.1 mls @ 0 mls/hr 04/13/20 21:00 04/15/20 20:19 Miscellaneous Medication SC 0.1 mls HS GADIEL Administration Insulin Human Lispro 0 units 04/12/20 15:07 04/16/20 12:10 Humalog 300 Units/3 Ml Vial SC 9 unit .AGGRESSIVE SLIDING PRN Administration Aggressive [employer]al Scale Insulin Human Lispro 0 units 04/12/20 22:45 04/15/20 20:21 Humalog 300 Units/3 Ml Vial SC 4 unit .BEDTIME SLIDING SC PRN Administration BEDTIME SLIDING SCALE Protocol Insulin Human NPH 5 unit 04/11/20 21:00 04/16/20 08:46 Nph, Human Insulin Isophane 300 Unit/3 Ml Vial SC 5 unit BID GADIEL Administration Metoprolol Tartrate 50 mg 04/11/20 21:00 04/16/20 08:43 Metoprolol Tartrate 50 Mg Tab PO 50 mg BID GADIEL Administration Pantoprazole Sodium 40 mg 04/12/20 09:00 04/16/20 08:43 Pantoprazole 40 Mg Tab PO 40 mg DAILY GADIEL Administration Sodium Bicarbonate 650 mg 04/11/20 15:00 04/16/20 15:59 Sodium Bicarbonate Tab 325 Mg Tab PO 650 mg TID GADIEL Administration Tamsulosin HCl 0.4 mg 04/11/20 21:00 04/15/20 20:18 Tamsulosin Hcl 0.4 Mg Cap PO 0.4 mg HS GADIEL Administration Zinc Sulfate 220 mg 04/12/20 09:00 04/16/20 08:42 Zinc Sulfate 220 Mg Cap PO 220 mg DAILY GADIEL Administration - Exam General Appearance: awake alert ENT: normocephalic atraumatic Neck: supple, no JVD Heart: RRR Respiratory: normal chest expansion, no tachypnea Gastrointestinal: soft Neurological: no focal deficits Hosp A/P (1) Acute respiratory failure with hypoxia Code(s): J96.01 - ACUTE RESPIRATORY FAILURE WITH HYPOXIA Status: Acute (2) Hematuria Code(s): R31.9 - HEMATURIA, UNSPECIFIED Status: Acute (3) CAD (coronary artery disease) Code(s): I25.10 - ATHSCL HEART DISEASE OF [place] CORONARY ARTERY W/O ANG PCTRS Status: Acute (4) Chronic renal failure Status: Acute (5) Chronic kidney disease, stage IV (severe) Code(s): N18.4 - CHRONIC KIDNEY DISEASE, STAGE 4 (SEVERE) Status: Chronic - Plan Hematuria with evidence of clots in the urinary bladder on imaging. S/P CBI. CBI discontinued and flynn remains for urine retention. Continue supplemental oxygen and dexamethasone. Patient's oxygenation has worsened and he is now on high flow nasal cannula. Chest x-ray showing worsening bilateral infiltrates. Another dose of Lasix has been given. Anticoagulation on hold due to recent bleeding. Sugar levels are better controlled. Continue aggressive sliding scale and Lantus 10 units nightly.
[2020-04-16] MEDS: Insulin Glargine 10 UNITS in Pre-Filled Syringe SC SCH (20:29)
[2020-04-16] MEDS: Tamsulosin HCl 0.4 MG CAP PO SCH (20:30)
[2020-04-17] MEDS: Calcium Acetate 667 MG CAP PO SCH ×3 (09:18→16:00)
[2020-04-17] MEDS: Zinc Sulfate 220 MG CAP PO SCH (09:18)
[2020-04-17] MEDS: Metoprolol Tartrate 50 MG TAB PO SCH ×2 (09:18→20:39)
[2020-04-17] MEDS: Sodium Bicarbonate Tab 325 MG TAB PO SCH ×3 (09:18→20:39)
[2020-04-17] MEDS: Ascorbic Acid 500 mg Chewable Tablet PO SCH (09:18)
[2020-04-17] MEDS: Cholecalciferol 1,000 UNITS (25 MCG) TAB PO SCH (09:19)
[2020-04-17] MEDS: Amlodipine 10 MG TAB PO SCH (09:19)
[2020-04-17] MEDS: Benzonatate 100 MG CAP PO SCH ×3 (09:19→20:40)
[2020-04-17] MEDS: NPH, Human Insulin Isophane 300 UNIT/3 ML VIAL SC SCH ×2 (09:20→21:14)
[2020-04-17] MEDS: cycloSPORINE 0.05% Ophthalmic Droperette EA EYE SCH (09:21)
[2020-04-17] MEDS: Clotrimazole 1 % Cream 30 GM TUBE TOP SCH (09:22)
[2020-04-17] MEDS: Dexamethasone 4 mg/ml Vial SLOW IVP SCH (09:22)
--- NOTE | 2020-04-17 09:28 | PRG ---
DATE OF SERVICE: 04/17/2020 SUBJECTIVE: Mr. Moore is a 69-year-old white male with chronic renal failure from diabetic nephropathy and admitted for COVID-19 pneumonia. He has had worsening renal dysfunction and with dialysis and he is still hesitant to proceed with this. He has also been treated for his COVID-19 pneumonia. He has been receiving p.r.n. Lasix due to a possible superimposed volume overload. No new complaints today. He denies any worsening shortness of breath. He denies any chest pain. OBJECTIVE: VITAL SIGNS: Blood pressure is 151/72, heart rate 78, respiratory rate 18, temperature 97.9, O2 saturation 91% on high-flow O2. GENERAL: The patient is awake, sitting comfortable, not in overt distress. SKIN: Adequate turgor. HEENT: Pale conjunctivae. Anicteric sclerae. No neck mass. No carotid bruits. No JVD. CHEST: No deformities. LUNGS: Decreased breath sounds. Occasional bibasilar crackles. HEART: Normal sinus rhythm. No murmurs, no gallops, no rubs. ABDOMEN: Globular, soft, nontender. No masses. EXTREMITIES: No edema. Status post right BKA. MEDICATIONS: Medications of April 17, 2020, were reviewed. LABORATORY DATA: Laboratories of April 16, 2020; BUN 75, creatinine 4.5, potassium 3.8. Hemoglobin 9.3. On April 17, 2020; basic metabolic pending. ASSESSMENT AND PLAN: 1. Acute kidney injury/chronic renal failure - the patient's creatinine yesterday was 4.5. He is nearing dialytic intervention. Again, the patient is hesitating to proceed with dialysis. We will continue to observe. Recheck basic metabolic today in a.m. Continue supportive care. We will hold off diuretics for the moment. 2. Anemia, on weekly Epogen. 3. COVID-19 pneumonia. Supportive care. We will be rechecking CBC, basic metabolic in a.m. Job ID: [id number] [facility]
[2020-04-17 09:42] LABS: Anion Gap 18 mmol/L (10-20); BUN (Urea Nitrogen) 85 mg/dL (8.4-25.7); Calc. Creatinine Clearance 13 mL/min (70-130); Calcium 7.3 mg/dL (7.8-10.44); Carbon Dioxide 29 mmol/L (23-31); Chloride 88 mmol/L (98-107); Glucose 129 mg/dL (80-115); Potassium 3.5 mmol/L (3.5-5.1); Sodium 131 mmol/L (136-145)
--- NOTE | 2020-04-17 10:40 | PRG ---
DATE OF SERVICE: 04/17/2020 This patient is maintaining good vital signs, but still is hypoxic on high-flow nasal cannula. Blood pressure is good. His urine is just a light pink color at most. He is afebrile. His hemoglobin yesterday was 9.3. His creatinine was 4.6. It looks like he is going to be in the hospital a lot longer related to his COVID, and I think it is reasonable to remove the hematuria catheter and replace it with just an 18-Qatari regular catheter would be more comfortable for him, smaller and softer, especially with him having a penile prosthesis in, so the nurses will go ahead and do that. I will continue to follow him probably on an every other day basis while he is here. Job ID: [id number]
[2020-04-17] MEDS: Gabapentin 300 MG CAP PO SCH (11:44)
[2020-04-17] MEDS: HumaLOG 300 UNITS/3 ML VIAL SC PRN ×2 (16:13→21:13)
[2020-04-17] MEDS ORDERED: Morphine 2 MG/ML VIAL SLOW IVP SCH ×2 (17:15→19:45)
[2020-04-17] MEDS ORDERED: HYDROcodone/Acetaminophen 5/325 mg Tablet PO PRN ×2 (20:22)
[2020-04-17] MEDS: Tamsulosin HCl 0.4 MG CAP PO SCH (20:39)
[2020-04-17] MEDS: Insulin Glargine 10 UNITS in Pre-Filled Syringe SC SCH (20:41)
[2020-04-18 00:32] VITALS: BP 132/69; TEMP 98.8
--- NOTE | 2020-04-18 01:41 | PDOC.EVN ---
Event Note - Event Note Event Note: code eusebio called, patient found in respiratory arrest. chest compression started, epinephrine given, and patient was intubated. patient rhythm was asystole and remained despite resuscitative efforts. Efforts were halted after approximately 17 min of resuscitation, was pronounced at 11:02 PM ( 04/17/2020 )
--- NOTE | 2020-04-18 13:24 | DIS ---
DATE OF ADMISSION: 04/12/2020 DATE OF DISCHARGE: 04/17/2020 SUMMARY: The patient was pronounced on 04/17/2020 at 11:02 p.m. CAUSE OF : 1. COVID-19 pneumonia. 2. End-stage renal disease. HISTORY OF PRESENT ILLNESS AND BRIEF HOSPITAL COURSE: The patient is a 69-year-old male with past medical history of chronic kidney disease due to diabetic nephropathy, who was admitted to the hospital for right BKA and was diagnosed with COVID-19 pneumonia. The patient left AMA and then returned to the hospital due to shortness of breath. He was managed for respiratory failure due to COVID-19 in addition to volume overload related to his kidney injury. The patient also developed urine retention and imaging studies revealed clots in the urinary bladder. He underwent catheter placement with bladder irrigation. The patient's respiratory status was deteriorating gradually and his kidney function also worsened. Dialysis was offered to the patient, however, he refused. The patient succumbed to his illness on the time and date listed above. Job ID: [id number]
--- NOTE | 2020-04-19 00:22 | PQF ---
CLINICAL DOCUMENTATION CLARIFICATION FORM: Dear : Park Gaxiola Date / Time: 04/19/2020 0021 Please exercise your independent, professional judgment in responding to the clarification form. Clinical indicators are provided on the bottom of this form for your review Please check appropriate box(es): HEART FAILURE: A. ACUITY [ ] Acute [ ] Acute on Chronic [ ] Chronic B. TYPE: [ ] Systolic / HFrEF [ ] Diastolic / HFpEF [ ] Combined Systolic / Diastolic [ >] Other diagnosis, please specify __Volume overload due to Renal failure [ ] Unable to determine In addition, please specify: Present on Admission (POA): [ >] Yes [ ] No [ ] Unable to determine Physician Signature: Date/Time: For continuity of documentation, please document condition throughout progress notes and discharge summary. Thank You. To be completed by CDI/Coding staff for physician review: Present Clinical Indicators - Signs / Symptoms / Labs Results and Location in Medical Record [X] BP 185/88, Pulse 95, Resp 20, Temp 98.5 Vital signs 04/11 [X] O2 sat: 94%; 93%; 94% Vital signs 04/11 [X] BNP 1928.4 Laboratory 04/10 [X] CHF H&P p2 04/11 Dr Gloria [X] Acute respiratory failure H&P p4 04/11 Dr Gloria [X] Overload H&P p4 04/11 Dr Gloria [X] CT of chest: Small bilateral pleural effusion CT of chest 04/10 [X] No JVD PN 04/17 [X] No edema PN 04/17 Present Risk Factors Results and Location in Medical Record [X] 69 year-old Male H&P p1 04/11 Dr Gloria [X] HTN H&P p1 04/11 Dr Gloria [X] DM H&P p1 04/11 Dr Gloria [X] CKD H&P p2 04/11 Dr Gloria [X] CAD HP 04/11 [X] Former Smoker ED Notes 04/12 Present Treatments Results and Location in Medical Record [X] Oxygen 3 L Respiratory Panel 04/11 [X] IV Lasix 40 mg JUL 25 [X] IV Decadron 60 mg JUL 25 CDS/Head Resident Signature: Kaycee Goodman Phone #: [phone] Date/Time: 04/19/2020 0021 This is a permanent part of the Medical Record [facility]
--- NOTE | 2020-04-20 15:18 | EKG ---
Test Reason : Blood Pressure : / mmHG Vent. Rate : 091 BPM Atrial Rate : 091 BPM P-R Int : 162 ms QRS Dur : 082 ms QT Int : 374 ms P-R-T Axes : 039 024 024 degrees QTc Int : 460 ms Normal sinus rhythm Possible Left atrial enlargement Borderline ECG Confirmed by TAINA ALDRICH ([id number]), newspaper photo editor JEREMIAH MASTERSON ([id number]) on 04/20/2020 3:18:08 PM Referred By: Confirmed By:TAINA Jose
--- NOTE | 2020-04-25 06:03 | PQF ---
CLINICAL DOCUMENTATION CLARIFICATION FORM: Dear : Park Gaxiola Date / Time: 04/25/2020 06 Please exercise your independent, professional judgment in responding to the clarification form. Clinical indicators are provided on the bottom of this form for your review Please check appropriate box(es): [ > ] Associated Diagnosis: Hyponatremia [ ] Abnormal laboratory not clinically significant [ ] Other diagnosis,please specify: [ ] Unable to determine In addition, please specify: Present on Admission (POA): [ >] Yes [ ] No [ ] Unable to determine Physician Signature: Date/Time: For continuity of documentation, please document condition throughout progress notes and discharge summary. Thank You. To be completed by CDI/Coding staff for physician review: Present Clinical Indicators - Signs / Symptoms / Labs Results and Location in Medical Record [X] Sodium 131; 129; 131;132; 130 Laboratory 04/11-04/17 [X] BP 185/88, Pulse 95, Resp 20, Temp 98.5 Viltal signs 04/11 [X] weakness HP 04/11 [X] reports fatigue and malaise ED Notes 04/12 Present Risk Factors Results and Location in Medical Record [X] 69 year-old Male H&P p1 04/11 Dr Gloria [X] DM H&P p1 04/11 Dr Gloria [X] HTN H&P p1 04/11 Dr Gloria [X] CHF H&P p1 04/11 Dr Gloria [X] CKD H&P p1 04/11 Dr Gloria [X] LEANDRO PN 04/12 [X] Former Smoker ED Notes 04/12 Present Treatments Results and Location in Medical Record [X] Series of sodium labs Laboratory 05/11-04/17 [X] Discontinue Lasix and Furosemide PN 04/12 [X] Dextrose 5% 1000ml IV MAR 04/11 CDS/Mirror Fabrication Supervisor Signature: Kaycee Goodman Phone #: ext [phone] Date/Time: 04/25/2020601 This is a permanent part of the Medical Record [facility]
== END 2020-04-17 23:02 | disposition expired | DRG 177 ==
LOC: ERS 18:05 → 2SW 04-11 02:20 → T4-A 04-11 03:56 → OBSVTOIN 04-12 09:44 → T4-A 04-12 15:20
PROVIDERS: ADMIT Internal Medicine; ATTEND Internal Medicine
PROC: 0T9B70Z Drainage of Bladder with Drainage Device, Via Natural or Artificial Opening (ICD-10-PCS; principal; 2020-04-12)
PROC: 8E0ZXY6 Isolation (ICD-10-PCS; 2020-04-12)
PROC: 3E1K78Z Irrigation of Genitourinary Tract using Irrigating Substance, Via Natural or Artificial Opening (ICD-10-PCS; 2020-04-12)
PROC: 0BH17EZ Insertion of Endotracheal Airway into Trachea, Via Natural or Artificial Opening (ICD-10-PCS; 2020-04-17)
PROC: 3E033XZ Introduction of Vasopressor into Peripheral Vein, Percutaneous Approach (ICD-10-PCS; 2020-04-17)
PROC: 5A12012 Performance of Cardiac Output, Single, Manual (ICD-10-PCS; 2020-04-17)
DX: U07.1 COVID-19 (principal); J12.89 Other viral pneumonia; J96.01 Acute respiratory failure with hypoxia; N18.6 End stage renal disease; N17.9 Acute kidney failure, unspecified; N39.0 Urinary tract infection, site not specified; E87.1 Hypo-osmolality and hyponatremia; I46.9 Cardiac arrest, cause unspecified; E11.22 Type 2 diabetes mellitus with diabetic chronic kidney disease; E11.51 Type 2 diabetes mellitus with diabetic peripheral angiopathy without gangrene; E11.65 Type 2 diabetes mellitus with hyperglycemia; I25.10 Atherosclerotic heart disease of native coronary artery without angina pectoris; D63.1 Anemia in chronic kidney disease; I50.9 Heart failure, unspecified; I11.0 Hypertensive heart disease with heart failure; E87.6 Hypokalemia; N40.1 Benign prostatic hyperplasia with lower urinary tract symptoms; R33.8 Other retention of urine; R31.0 Gross hematuria; E83.51 Hypocalcemia; E87.70 Fluid overload, unspecified; E83.39 Other disorders of phosphorus metabolism; Z89.511 Acquired absence of right leg below knee; Z95.5 Presence of coronary angioplasty implant and graft; Z87.891 Personal history of nicotine dependence; Z79.899 Other long term (current) drug therapy; Z79.4 Long term (current) use of insulin; Z79.52 Long term (current) use of systemic steroids; E11.40 Type 2 diabetes mellitus with diabetic neuropathy, unspecified; Z53.20 Procedure and treatment not carried out because of patient's decision for unspecified reasons; Z88.1 Allergy status to other antibiotic agents; Z88.2 Allergy status to sulfonamides; Z96.0 Presence of urogenital implants; N32.89 Other specified disorders of bladder
CPT/HCPCS: 36415; 36416; 71045; 74176; 80048; 80053; 81003; 81015; 83605; 83880; 83970; 84100; 85025; 87040; 87086; 93005; 96365; 96375; 96376; G0378; J0171; J0696; J1100; J1815; J1940; J2270; P9047; Q5105